=== PATIENT | female | born 1985 | race Hispanic/Latino ===

== ENCOUNTER 2020-01-08 20:06 | Emergency (ER) | payer BC, OTHER ==
--- OUTSIDE RECORDS SUMMARY | 2020-01-08 20:09 | XMS REPORT | Continuity of Care Document ---
:1985 Author Organization [facility] t Address [address] [place] [address] Care Team Providers Name Role Phone Constantine Reeves MD Attending Clinician Nurse, Women's Health Attending Clinician Unavailable Herbert HALL Attending Clinician Pcp, Does Not Have A Attending Clinician Herbert HALL Admitting Clinician Problems This patient has no known problems. Allergies, Adverse Reactions, Alerts This patient has no known allergies or adverse reactions. Medications This patient has no known medications. Procedures This patient has no known procedures. Encounters Start End Encounter Admission Attending Care Care Encounter Source Date/Time Date/Time Type Type Clinicians Facility Department ID 2019-12-27 2019-12-27 Refill MELITA Reeves [id number] 00:00:00 00:00:00 Tawanna Bazan [id number] [place] [id number] Professio [id number] [address] 2019-12-26 2019-12-26 Nurse Nurse, [facility] [id number] 15:26:04 16:16:40 Visit Mathew Bazan [id number] Formerly [facility] [id number] Professio [id number] [address] 2019-12-18 2019-12-20 [facility] MARCOS Godinez [id number] 05:24:00 15:25:00 Encounter Rosalba CUNN[place]HAM [id number] [facility] [id number] 2019-12-16 2019-12-16 Telephone Pcp, [place] [id number] 00:00:00 00:00:00 Patient Beni [id number] Does Not [place] [id number] Have A [place] [id number] [id number] Results This patient has no known results.
--- OUTSIDE RECORDS SUMMARY | 2020-01-08 20:09 | XMS REPORT | Summary of Care ---
:1985 Author Organization [facility] Address [address] [place] [address] Care Team Providers Name Role Phone Pcp, Patient Does Not Have A Primary Care Provider +1-000-00 0-0000 Reason for Visit Reason Comments LAB Encounter Details Date Type Department Care Team Description 10/16/2019 Hydro Station Operator Visit [facility] Sabi Man MD [address] [facility] [address] [place] [address] Glucose tolerance test abnormal; Professional Office 2, Adc Lab 29 weeks gestation of Building Phlebotomy Lab Professional Office Building [address] [facility] , [address] [place] [address] Allergies No Known Allergiesdocumented as of this encounter (statuses as of 10/16/2019) Medications Medication Sig Dispensed Refills Start Date End Date Status vit Take by mouth. 0 A ctive calc,iron,folic ( VITAMIN ORAL) ferrous sulfate 325 mg Take 1 tablet by 30 tablet 3 09/05/2019 Active (65 mg iron) EC mouth 2 (two) tabletIndications: 24 times daily with weeks gestation of meals. , Anemia of mother in , antepartum documented as of this encounter (statuses as of 10/16/2019) Active Problems Problem Noted Date Previous section 10/01/2019 27 weeks gestation of 10/01/2019 Obesity (BMI 30-39.9) 09/05/2019 Anemia of mother in , antepartum 08/22/2019 Polyp of gallbladder 06/06/2016 Seropositive for herpes simplex 2 infection 05/31/2016 Low serum HDL 05/31/2016 Anemia, unspecified 05/31/2016 Chronic abdominal pain 05/22/2016 Blood in stool 05/22/2016 Estimated Date of Delivery Comments Yes 12/25/2019 Based on last menstr ual period of 03/20/2019 documented as of this encounter (statuses as of 10/16/2019) Resolved Problems Problem Noted Date Resolved Date 24 weeks gestation of 08/22/2019 10/01/19 20 documented as of this encounter (statuses as of 10/16/2019) Immunizations Name Administration Dates Next Due Influenza Virus Vaccine Quad IM Multi-dose 6+ MO 05/22/2016 TDAP (ADACEL) VACCINE 10/01/2019 documented as of this encounter Social History Tobacco Use Types Packs/Day Years Used Date Never Smoker Smokeless Tobacco: Never Used Alcohol Use Drinks/Week oz/Week Comments No 0 Standard drinks or equivalent 0.0 Estimated Date of Delivery Comments Yes 12/25/2019 Based on last menstr ual period of 03/20/2019 Sex Assigned at Date Recorded Not on file Job Start Date Occupation Industry Not on file Not on file Not on file Travel History Travel Start Travel End No recent travel history available. COVID-19 Exposure Response Date Recorded In the last month, have you been in contact with No / Unsure 10/16/2019 8:04 AM CDT someone who was confirmed or suspected to have Coronavirus / COVID-19? documented as of this encounter Last Filed Vital Signs Not on filedocumented in this encounter Plan of Treatment Date Type Specialty Care Team Description 10/17/2019 Telemedicine Visit Obstetrics & Gynecology Adum, Tawanna Fitch MD [address] [place] [address] [place] [address] Name Type Priority Associated Diagnoses Date/Ti me 3 HR GLUCOSE TOLERANCE LAB Routine Glucose tolerance test 10/16/2019 8:08 AM CDT PANEL abnormal 29 weeks gestation of 3 HR GLUCOSE TOLERANCE LAB Routine Glucose tolerance test 10/16/2019 11:10 AM CDT TEST abnormal 29 weeks gestation of Health Maintenance Due Date Last Done Comments VARICELLA VACCINES (1 of 2 - 01/02/1988 2-dose childhood series) INFLUENZA VACCINE (#1) 2019 05/22/2016 PAP SMEAR 08/22/2022 08/22/2019, 05/22/2016 DTaP,Tdap,and Td Vaccines (2 09/30/2029 10/01/2019 - Td) PNEUMOCOCCAL 0-64 YEARS Aged Out No longe r eligible based COMBINED SERIES on patient's age to complete this to [facility] documented as of this encounter Procedures Procedure Name Priority Date/Time Associated Diagnosis Comme nts 2 HR GLUCOSE Routine 10/16/2019 10:11 AM Glucose tolerance Res ults for this TOLERANCE TEST CDT test abnormal procedure are in 29 weeks gestation the resul ts of section. 1 HR GLUCOSE Routine 10/16/2019 9:10 AM Glucose tolerance Res ults for this TOLERANCE TEST CDT test abnormal procedure are in 29 weeks gestation the resul ts of section. GLUCOSE FASTING Routine 10/16/2019 8:08 AM Glucose tolerance Results for this CDT test abnormal procedure are in 29 weeks gestation the resul ts of section. documented in this encounter Results 2 HR GLUCOSE TOLERANCE TEST (10/16/2019 10:11 AM CDT) Pathologist Sig nature GLUC 2 HR 190 (H) 70 - 120 mg/dL [facility] Specimen Blood Performing Organization Address [facility] Phone Number [facility] CLIA: [id number], [address] [place], [place] [address] 1 HR GLUCOSE TOLERANCE TEST (10/16/2019 9:10 AM CDT) Pathologist Sig nature GLUC 1 HR 213 (H) 120 - 170 mg/dL [facility] Specimen Blood Performing Organization Address [facility] Phone Number [facility] CLIA: [id number], [address] [place], [place] [address] GLUCOSE FASTING (10/16/2019 8:08 AM CDT) Pathologist Sig nature GLU FASTNG 91 70 - 110 mg/dL [facility] Specimen Blood Performing Organization Address [facility] Phone Number [facility] CLIA: [id number], [address] [place], [place] [address] documented in this encounter Visit Diagnoses Diagnosis Glucose tolerance test abnormal Impaired glucose tolerance test 29 weeks gestation of state, incidental documented in this encounter Insurance Payer Benefit Plan / Subscriber ID Effective Dates Phone Addre ss Type Group BCBS OF [facility] [id number] 2018-Presen [phone] P O CARYN X PPO/POS [place] - OUT OF STATE t 87 [id number] [place] [address] [facility] MEDICAID OF xxxxxxxxx 2019-Prese [phone] P [place] [id number] [place] [address] documented as of this encounter
--- OUTSIDE RECORDS SUMMARY | 2020-01-08 20:09 | XMS REPORT | Summary of Care ---
:1985 Author Organization [facility] Address [address] [place] [address] Care Team Providers Name Role Phone Pcp, Patient Does Not Have A Primary Care Provider +1-000-00 0-0000 Reason for Visit Reason Comments LAB WORK Encounter Details Date Type Department Care Team Description 10/15/2019 [facility]phone [facility] Adum, Tawanna Fitch MD LAB WORK Healthcare- [address] [place] [address], [address] [place] [address] [place] [address] [phone] Allergies No Known Allergiesdocumented as of this encounter (statuses as of 10/15/2019) Medications Medication Sig Dispensed Refills Start Date [...] as of this encounter (statuses as of 10/15/2019) Active Problems Problem Noted Date Previous section [...] as of this encounter (statuses as of 10/15/2019) Resolved Problems Problem Noted Date Resolved Date 24 weeks gestation of 08/22/2019 10/01/19 20 documented as of this encounter (statuses as of 10/15/2019) Immunizations Name Administration Dates Next Due Influenza [...] Travel End No recent travel history available. documented as of this encounter Last Filed Vital Signs Not on filedocumented in this encounter Plan of Treatment Date Type Specialty Care Team Description 10/17/2019 Telemedicine Visit Obstetrics & Gynecology Adum, Tawanna Fitch MD [address] [place] [address] Dr. Patel [address] [place] [address] Name Type Priority Associated Diagnoses Order S chedule 3 HR GLUCOSE TOLERANCE LAB Routine Glucose tolerance test Expected: 10/15/2019, PANEL abnormal Expires: 01/14/2020 29 weeks gestation of Health Maintenance Due Date Last Done Comments VARICELLA VACCINES (1 of 2 - 01/02/1988 2-dose childhood series) INFLUENZA VACCINE (#1) 2019 05/22/2016 PAP SMEAR 08/22/2022 08/22/2019, 05/22/2016 DTaP,Tdap,and Td Vaccines (2 09/30/2029 10/01/2019 - Td) PNEUMOCOCCAL 0-64 YEARS Aged Out No longe r eligible based COMBINED SERIES on patient's age to complete this to [facility] documented as of this encounter Results Not on filedocumented in this encounter Visit Diagnoses Diagnosis Glucose tolerance test abnormal - Primar y Impaired glucose tolerance test 29 weeks gestation of state, incidental documented in this encounter Insurance Payer Benefit Plan / Subscriber ID Effective Dates Phone Addre ss Type Group BCBS OF [place] OF [place] [id number] 2018-Pressanthosh [phone] P O CARYN X PPO/POS [place] - OUT OF STATE t 87 [id number] [place] [address] [facility] MEDICAID OF xxxxxxxxx 2019-Preszulema [phone] [address] edicaid [place] nt [id number] [place] [address] documented as of this encounter
--- OUTSIDE RECORDS SUMMARY | 2020-01-08 20:09 | XMS REPORT | Summary of Care ---
:[address] [facility] - Health Address [address] [place] [address] Care Team Providers Name Role Phone Pcp, Patient Does Not Have A Primary Care Provider +1-000-00 0-0000 Encounter Details Date Type Department Care Team Description 10/10/[address] [facility] Doctor Unassigned, No [address] [facility] [place] [address] [address] [place] [address] Allergies No Known Allergiesdocumented as of this [...] Description 10/17/2019 Telemedicine Visit Obstetrics & Gynecology AdTawanna soni MD [address] [place] [address] [place] [address] Health Maintenance Due Date Last Done Comments VARICELLA VACCINES (1 of 2 - 01/02/1988 2-dose childhood series) INFLUENZA VACCINE (#1) 2019 05/22/2016 PAP SMEAR 08/22/2022 08/22/2019, 05/22/2016 DTaP,Tdap,and Td Vaccines (2 09/30/2029 10/01/2019 - Td) PNEUMOCOCCAL 0-64 YEARS Aged Out No longe r eligible based COMBINED SERIES on patient's age to complete this to [facility] documented as of this encounter Procedures Procedure Name Priority Date/Time Associated Diagnosis Comme nts AGREEMENTS AUTHORIZATIONS Routine 10/10/2019 12:01 AM AND IRREVOCABLE CDT ASSIGNMENTS (FORM 2000) documented in this encounter Results Not on filedocumented in this encounter Insurance Payer Benefit Plan / Subscriber ID Effective Dates Phone Addre ss Type Group BCBS OF [place] OF [place] [id number] 2018-Presen [phone] P O CARYN X PPO/POS [place] - OUT OF STATE t 87 [id number] [place] [address] [facility] MEDICAID OF xxxxxxxxx 2019-Prese [phone] Johana Leon edicaid [place] nt [id number] [place] [address] documented as of this encounter
--- OUTSIDE RECORDS SUMMARY | 2020-01-08 20:10 | XMS REPORT | Summary of Care ---
:1985 Author Organization [facility] Address [address] [place] [address] Care Team Providers Name Role Phone Pcp, Patient Does Not Have A Primary Care Provider +1-000-00 0-0000 Reason for Visit Reason Comments ROUTINE VISIT Encounter Details Date Type Department Care Team Description 10/17/2019 Telemedicine Visit [facility] Women's Adum, Tawanna Fitch, 30 weeks gestation of (Primary Dx); Healthcare- MD Diet controlled gestational diabetes forrest litus (GDM) in third trimester; [address] Anemia of mother in pregnanc y, antepartum; [address], Athlete's foot, right [address] [place] [address] Allergies No Known Allergiesdocumented as of this encounter (statuses as of 10/17/2019) Medications Medication Sig Dispensed Refills Start Date End Date Status vit Take by mouth. 0 A ctive calc,iron,folic ( VITAMIN ORAL) ferrous sulfate 325 mg Take 1 tablet by 30 tablet 3 09/05/2019 Active (65 mg iron) EC mouth 2 (two) tabletIndications: 24 times daily with weeks gestation of meals. , Anemia of mother in , antepartum ketoconazole 2 % Apply to 15 g 0 10/17/2019 10/31/2019 A ctive creamIndications: area(s) daily Athlete's foot, right for 14 days. documented as of this encounter (statuses as of 10/17/2019) Active Problems Problem Noted Date Diet controlled gestational diabetes mellitus (GDM) in third trimester 10/17/2019 Previous section 10/01/2019 30 weeks gestation of 10/01/2019 Obesity (BMI 30-39.9) [...] as of this encounter (statuses as of 10/17/2019) Resolved Problems Problem Noted Date Resolved Date 24 weeks gestation of 08/22/2019 10/01/19 20 documented as of this encounter (statuses as of 10/17/2019) Immunizations Name Administration Dates Next Due Influenza [...] Signs Not on filedocumented in this encounter Progress Notes Tawanna Reeves MD - 10/17/2019 1:30 PM CDT TELEHEALTH NOTE Verbal consent obtained from Patient: Marina Maxwell for telehealth services provided below due to COVID-19 crises. Communication with patient was conducted via Telephone due to patient unable to obtain video call option. Location of Patient: Home Location of Provider: Office Date of Service: 10/17/2019 Chief Complaint: routine visit HPI: Marina Maxwell is a 34 year old female @ 30w1d here for routine visit. Denies contractions, vaginal bleeding, LOF, dysuria, or PIH symptoms. + active FM. Patient failed her 3hr GTT She repots that her athlete foot is not improving with OTC antifungal( insurance would not cover herketoconazole prescription) Past Medical History: Diagnosis Date Anemia History of ovarian cyst MEDICATIONS: Outpatient Medications Marked as Taking for the 10/17/19 encounter (Telemedicine Visit) with Tawanna Reeves MD Medication Sig Dispense Refill ketoconazole 2 % cream Apply to area(s) daily for 14 days. 15 g 0 ROS Denies fever, chills, chest pain, coughing, SOB, constipation, diarrhea, nausea, vomiting. Pain score: 0 TELEHEALTH EXAM Alert and answering/asking questions appropriately ASSESSMENT/ PLAN Marina Maxwell is a 34 year old female with PMH as above presenting with: 30 weeks gestation of (primary encounter diagnosis) - PTL precautions and FKC reviewed. Plan: Follow up in 2 weeks Diet controlled gestational diabetes mellitus (GDM) in third trimester - Reviewed results and explained consistent with diabetes in . The need for adequate glycemic control to prevent macrosomia, polyhydramnios, hypoglycemia, trauma and other possible complications including GHTN, preeclampsia were discussed. A referral has been generated for diabetic teaching/ dietitian. Briefly discussed the recommended diet should be about 40% carbohydrates (more complex than simple carbohydrates), 40% fat, and 20% protein. You should eat 3 meals with 2-3 snacks per day. A moderate exercise is recommended. She understands that she might require medication- oral hypoglycemics or insulin to achieve adequate glycemic control if indicated as advances Plan: Refer for diabetic and animal daycare provider teaching OPHELIA Anemia of mother in , antepartum Comment: Continue Iron supplements as prescribed Plan: Athlete's foot, right Comment: Patient reports that she will cover cost for the medication Plan: ketoconazole 2 % cream . See OB Summary Discussed about COVID-19/flu precautions. Social distancing, frequent hand washings, and to follow CDC recommendations discussed. Indications for testing discussed. After visit summary (AVS ) documentation will be available through [employer] for this encounter. Tawanna Reeves MD 10/17/2019 2:04 PM documented in this encounter Plan of Treatment Date Type Specialty Care Team Description 10/20/2019 Nurse Visit Obstetrics & Gynecology Nurse, [facility] Women' s Health 10/31/2019 Telemedicine Visit Obstetrics & Gynecology Tawanna Reeves MD [address] [place] [address] [place] [address] Health Maintenance Due Date Last Done Comments VARICELLA VACCINES (1 of 2 - 01/02/1988 2-dose childhood series) INFLUENZA VACCINE (#1) 2019 05/22/2016 PAP SMEAR 08/22/2022 08/22/2019, 05/22/2016 DTaP,Tdap,and Td Vaccines (2 09/30/2029 10/01/2019 - Td) PNEUMOCOCCAL 0-64 YEARS Aged Out No longe r eligible based COMBINED SERIES on patient's age to complete this to [facility] documented as of this encounter Results Not on filedocumented in this encounter Visit Diagnoses Diagnosis 30 weeks gestation of - Primar y state, incidental Diet controlled gestational diabetes forrest litus (GDM) in third trimester Anemia of mother in , antepartu m Anemia, antepartum Athlete's foot, right Dermatophytosis of foot documented in this encounter Insurance Payer Benefit Plan / Subscriber ID Effective Dates Phone Addre ss Type Group BCBS [place] [id number] 2018-Presen [phone] P O CARYN X PPO/POS [place] - OUT OF STATE t 87 [id number] [place] [address] [facility] MEDICAID OF xxxxxxxxx 2019-Prese [phone] [address] edicaid [place] nt [id number] [place] [address] documented as of this encounter
--- OUTSIDE RECORDS SUMMARY | 2020-01-08 20:10 | XMS REPORT | Summary of Care ---
:1985 Author Organization [facility] - [facility] Address [address] [place] [address] Care Team Providers Name Role Phone Pcp, Patient Does Not Have A Primary Care Provider +1-000-00 0-0000 Reason for Visit Reason Comments Diabetic Education Encounter Details Date Type Department Care Team Description 10/20/2019 Nurse Visit [facility] Women's Adum, Tawanna Fitch MD [address] [place] [address] DrKim [address] [place] [address] Diet controlled Healthcare- [place] Nurse, [facility] Women's [facility] gestational diabetes [address] [facility], mellitus (GDM) in [address] third trimester [place], [place] (Primary Dx) [id number] Allergies No Known Allergiesdocumented as of this encounter (statuses as of 10/20/2019) Medications Medication Sig Dispensed Refills Start Date [...] daily Athlete's foot, right for 14 days. Blood-Glucose Meter Use as directed; 1 Kit 1 10/20/2019 Active (BLOOD GLUCOSE patient to check MONITORING) Kit blood sugar QID. DX: O24.410 blood sugar diagnostic Use as directed; 100 Strip 2 10/20/2019 Active strip Patient to check blood glucose QID. DX: O24.410 Lancets Misc Use as directed; 100 Each 2 10/20/2019 Active Patient to check blood sugar QID. DX: O24.410 documented as of this encounter (statuses as of 10/20/2019) Active Problems Problem Noted Date Diet controlled [...] as of this encounter (statuses as of 10/20/2019) Resolved Problems Problem Noted Date Resolved Date 24 weeks gestation of 08/22/2019 10/01/19 20 documented as of this encounter (statuses as of 10/20/2019) Immunizations Name Administration Dates Next Due Influenza [...] been in contact with No / Unsure 10/20/2019 2:58 PM CDT someone who was confirmed or suspected to have Coronavirus / COVID-19? documented as of this encounter Last Filed Vital Signs Not on filedocumented in this encounter Progress Notes Dara Mcneal RN - 10/20/2019 3:00 PM CDTDiabetic education done with patient with help of account manager. Diabetic supplies to be sent to pharmacy. Patient verbalized understanding and agrees to plan of care. Dara Mcneal RN 10/20/2019 4:08 PM documented in this encounter Plan of Treatment Date Type Specialty Care Team Description 10/31/2019 Telemedicine Visit Obstetrics & Gynecology Adum, Tawanna Fitch MD [address] [place] [address] [place] [phone] Health Maintenance Due Date Last Done Comments VARICELLA VACCINES (1 of 2 - 01/02/1988 2-dose childhood series) INFLUENZA VACCINE (#1) 2019 05/22/2016 PAP SMEAR 08/22/2022 08/22/2019, 05/22/2016 DTaP,Tdap,and Td Vaccines (2 09/30/2029 10/01/2019 - Td) PNEUMOCOCCAL 0-64 YEARS Aged Out No longe r eligible based COMBINED SERIES on patient's age to complete this to psychiatric documented as of this encounter Results Not on filedocumented in this encounter Visit Diagnoses Diagnosis Diet controlled gestational diabetes forrest litus (GDM) in third trimester - Primary documented in this encounter Insurance Payer Benefit Plan / Subscriber ID Effective Dates Phone Addre ss Type Group BCBS OF [place] [id number] 2018-Presen [phone] P O CARYN X PPO/POS [place] - OUT OF STATE t 87 [phone] [place] [address] [facility] [place] MEDICAID OF xxxxxxxxx 2019-Prese [phone] [address] edicaid [place] nt 00 2004 [place] [address] documented as of this encounter
--- OUTSIDE RECORDS SUMMARY | 2020-01-08 20:10 | XMS REPORT | Summary of Care ---
:1985 Author Organization [facility] Address [address] [place] [address]94 Care Team Providers Name Role Phone Pcp, Patient Does Not Have A Primary Care Provider +[phone] 0-0000 Reason for Visit Reason Comments Rx Concern/Question Encounter Details Date Type Department Care Team Description 11/04/2019 Telephone [facility] Women's Adum, Tawanna Fitch MD Rx Concern/Question Healthcare- [address] [place] [address], [facility] [address] [place] [address] [phone] Allergies No Known Allergiesdocumented as of this encounter (statuses as of 11/05/2019) Medications Medication Sig Dispensed Refills Start Date End Date Status vit Take by mouth. 0 A ctive calc,iron,folic ( VITAMIN ORAL) ferrous sulfate 325 mg Take 1 tablet by 30 tablet 3 09/05/2019 Active (65 mg iron) EC mouth 2 (two) tabletIndications: 24 times daily with weeks gestation of meals. , Anemia of mother in , antepartum Blood-Glucose Meter Use as directed; 1 Kit 1 10/20/2019 Active (BLOOD GLUCOSE patient to check MONITORING) Kit blood sugar QID. DX: O24.410 blood sugar diagnostic Use as directed; 100 Strip 2 10/20/2019 Active strip Patient to check blood glucose QID. DX: O24.410 Lancets Misc Use as directed; 100 Each 2 10/20/2019 Active Patient to check blood sugar QID. DX: O24.410 glyBURIDE 1.25 mg To be taken at 30 tablet 1 10/31/2019 Active tabletIndications: 10pm every night Gestational diabetes mellitus (GDM) in third trimester controlled on oral hypoglycemic drug documented as of this encounter (statuses as of 11/05/2019) Active Problems Problem Noted Date 32 weeks gestation of 10/31/2019 Gestational diabetes mellitus (GDM) in third trimester controlled on oral 10/17/2019 hypoglycemic drug Previous section 10/01/2019 30 weeks gestation of [...] as of this encounter (statuses as of 11/05/2019) Resolved Problems Problem Noted Date Resolved Date 24 weeks gestation of 08/22/2019 10/01/19 20 documented as of this encounter (statuses as of 11/05/2019) Immunizations Name Administration Dates Next Due Influenza [...] been in contact with No / Unsure 10/31/2019 1:52 PM CDT someone who was confirmed or suspected to have Coronavirus / COVID-19? documented as of this encounter Last Filed Vital Signs Not on filedocumented in this encounter Plan of Treatment Date Type Specialty Care Team Description 11/14/2019 Routine Obstetrics & Adum, Tawanna Fitch MD Visit Gynecology [address] [place] [address] [place] [address] Health Maintenance Due Date Last Done Comments VARICELLA VACCINES (1 of 2 - 01/02/1988 2-dose childhood series) INFLUENZA VACCINE (Season 02/24/2020 05/22/2016 Ended) PAP SMEAR 08/22/2022 08/22/2019, 05/22/2016 DTaP,Tdap,and Td Vaccines (2 09/30/2029 10/01/2019 - Td) PNEUMOCOCCAL 0-64 YEARS Aged Out No longe r eligible based COMBINED SERIES on patient's age to complete this to [facility] documented as of this encounter Results Not on filedocumented in this encounter Insurance Payer Benefit Plan / Subscriber ID Effective Dates Phone Addre ss Type Group BCBS OF [place] [id number] 2018-Pressanthosh [phone] P O CARYN X PPO/POS [place] - OUT OF STATE t 87 [id number] [place] [address] [facility] MEDICAID OF xxxxxxxxx 2019-Prese [phone] [address] [place]icaid [place] nt 00 [id number] [place] [address] documented as of this encounter
--- OUTSIDE RECORDS SUMMARY | 2020-01-08 20:10 | XMS REPORT | Summary of Care ---
:1985 Author Organization [facility] Address [address] [place] [address]698 Care Team Providers Name Role Phone Pcp, Patient Does Not Have A Primary Care Provider +1-000-00 0-0000 Reason for Visit Reason Comments Refill Request Encounter Details Date Type Department Care Team Description 10/20/2019 Refill [facility] Women's Adum, Tawanna Fitch MD Refill Request Healthcare- [address] [place] [address], Suite [facility] 20 8 208 [place] [address] [place] [address] [phone] Allergies No Known Allergiesdocumented as of this [...] Obstetrics & Gynecology Adum, Tawanna Fitch MD [address] [place] [address] [place] [address] Health Maintenance Due Date Last Done Comments VARICELLA VACCINES (1 of 2 - 01/02/1988 2-dose childhood series) INFLUENZA VACCINE (#1) 2019 05/22/2016 PAP SMEAR 08/22/2022 08/22/2019, 05/22/2016 DTaP,Tdap,and Td Vaccines (2 09/30/2029 10/01/2019 - Td) PNEUMOCOCCAL 0-64 YEARS Aged Out No longe r eligible based COMBINED SERIES on patient's age to complete this to [facility] documented as of this encounter Results Not on filedocumented in this encounter Visit Diagnoses Diagnosis Athlete's foot, right Dermatophytosis of foot documented in this encounter Insurance Payer Benefit Plan / Subscriber ID Effective Dates Phone Addre ss Type Group BCBS OF [place] [id number] 2018-Presen [phone] P [address] CARYN X PPO/POS [place] - OUT OF STATE t 87 [id number] [place] [address] [facility] MEDICAID OF xxxxxxxxx 2019-Prese [phone] [address] edicaid [place] nt [address] [place] [address] documented as of this encounter
--- OUTSIDE RECORDS SUMMARY | 2020-01-08 20:10 | XMS REPORT | Summary of Care ---
:1985 Author Organization [facility] Address [address] [place] [address] Care Team Providers Name Role Phone Pcp, Patient Does Not Have A Primary Care Provider +1-000-00 0-0000 Reason for Visit Reason Comments Refill Request Encounter Details Date Type Department Care Team Description 10/27/2019 Refill [facility] Women's Adum, Tawanna Fitch MD Refill Request Healthcare- [address] [place] [address], Suite [facility] 20 8 208 [place] [address] [place] [address] [phone] Allergies No Known Allergiesdocumented as of this encounter (statuses as of 10/27/2019) Medications Medication Sig Dispensed Refills Start Date [...] as of this encounter (statuses as of 10/27/2019) Active Problems Problem Noted Date Diet controlled [...] as of this encounter (statuses as of 10/27/2019) Resolved Problems Problem Noted Date Resolved Date 24 weeks gestation of 08/22/2019 10/01/19 20 documented as of this encounter (statuses as of 10/27/2019) Immunizations Name Administration Dates Next Due Influenza [...] Description 10/31/2019 Telemedicine Visit Obstetrics & Gynecology AdTawanna soni MD [address] [place] [address] [place] [address] Health Maintenance Due Date Last Done Comments VARICELLA VACCINES (1 of 2 - 01/02/1988 2-dose childhood series) INFLUENZA VACCINE (Season 02/24/2020 05/22/2016 Ended) PAP SMEAR 08/22/2022 08/22/2019, 05/22/2016 DTaP,Tdap,and Td Vaccines (2 09/30/2029 10/01/2019 - Td) PNEUMOCOCCAL 0-64 YEARS Aged Out No longe r eligible based COMBINED SERIES on patient's age to complete this to [facility] documented as of this encounter Results Not on filedocumented in this encounter Visit Diagnoses Diagnosis 24 weeks gestation of state, incidental Anemia of mother in , antepartu m Anemia, antepartum documented in this encounter Insurance Payer Benefit Plan / Subscriber ID Effective Dates Phone Addre ss Type Group BCBS OF [facility] [id number] 2018-Pressanthosh [phone] P O CARYN X PPO/POS [place] - OUT OF STATE t 87 [id number] [place] [address] [facility] MEDICAID OF xxxxxxxxx 2019-Preszulema [phone] [address] edicaid [place] nt 00 2004 [place] [address] documented as of this encounter
--- OUTSIDE RECORDS SUMMARY | 2020-01-08 20:10 | XMS REPORT | Summary of Care ---
:1985 Author Organization [facility] Address [address] [place] [address] Care Team Providers Name Role Phone Pcp, Patient Does Not Have A Primary Care Provider +1-000-00 0-0000 Reason for Visit Reason Comments ROUTINE VISIT Encounter Details Date Type Department Care Team Description 10/31/2019 Routine [facility] Women's Adum, Javier Longoria estational diabetes mellitus (GDM) in third trimester controlled on oral hypoglycemic drug (Primary Dx); Visit Healthcare- MD 32 weeks gestation of ; [address] Frequent headaches [address] [facility], Kim [facility] 208 [facility] 208 [place] [address] Allergies No Known Allergiesdocumented as of this encounter (statuses as of 10/31/2019) Medications Medication Sig Dispensed Refills Start Date [...] as of this encounter (statuses as of 10/31/2019) Active Problems Problem Noted Date 32 weeks [...] as of this encounter (statuses as of 10/31/2019) Resolved Problems Problem Noted Date Resolved Date 24 weeks gestation of 08/22/2019 10/01/19 20 documented as of this encounter (statuses as of 10/31/2019) Immunizations Name Administration Dates Next Due Influenza [...] of this encounter Last Filed Vital Signs Vital Sign Reading Time Taken Comments Blood Pressure 108/66 10/31/2019 2:06 PM CDT Pulse 88 10/31/2019 2:06 PM CDT Temperature 37.1 C (98.7 F) 10/31/2019 2:06 PM CDT Respiratory Rate 18 10/31/2019 2:06 PM CDT Oxygen Saturation - - Inhaled Oxygen Concentration - - Weight 81.2 kg (179 lb) 10/31/2019 2:06 PM CDT Height 160 cm (5' 3") 10/31/2019 2:06 PM CDT Body Mass Index 31.71 10/31/2019 2:06 PM CDT documented in this encounter Progress Notes Tawanna Reeves MD - 10/31/2019 1:45 PM CDT Chief complaint: Chief Complaint Patient presents with ROUTINE VISIT HPI See OB summary note Histories OB History Para Term AB Living 3 1 1 1 1 SAB TAB Ectopic Multiple Live Births 1 # Outcome Date GA Lbr Gucci/2nd Weight Sex Delivery Anes PTL Lv 3 Current 2 AB 12/27/16 1 Term 07/17/14 M CS-Unspec JAMMIE Past Medical History: Diagnosis Date Anemia History of ovarian cyst Family History Problem Relation Age of Onset Hypertension Mother Cancer Paternal Grandmother Cancer Paternal Grandfather Family Status Relation Name Status Mo Alive Fa murder PGMo PGFa Past Surgical History: Procedure Laterality Date SECTION x 1 Social History Socioeconomic History Marital status: Spouse name: Not on file Number of children: Not on file Years of education: Not on file Highest education level: Not on file Occupational History Not on file Social Needs Financial resource strain: Not on file Food insecurity: Worry: Not on file Inability: Not on file Transportation needs: Medical: Not on file Non-medical: Not on file Tobacco Use Smoking status: Never Smoker Smokeless tobacco: Never Used Substance and Sexual Activity Alcohol use: No Alcohol/week: 0.0 standard drinks Drug use: No Sexual activity: Yes Partners: Male Lifestyle Physical activity: Days per week: Not on file Minutes per session: Not on file Stress: Not on file Relationships Social connections: Talks on phone: Not on file Gets together: Not on file Attends judaism service: Not on file Active member of club or organization: Not on file Attends meetings of clubs or organizations: Not on file Relationship status: Not on file Intimate partner violence: Fear of current or ex partner: Not on file Emotionally abused: Not on file Physically abused: Not on file Forced sexual activity: Not on file Other Topics Concern Not on file Social History Narrative Patient feels safe at home denies abuse. Adventist preference: none Social History Substance and Sexual Activity Sexual Activity Yes Partners: Male Labs Rug Cleaner Helper Visit on 10/16/2019 Component Date Value GLU FASTNG 10/16/2019 91 GLUC 1 HR 10/16/2019 213* GLUC 2 HR 10/16/2019 190* GLUC 3 HR 10/16/2019 113* Rug Cleaner Helper Visit on 10/10/2019 Component Date Value ABO & RH 10/10/2019 O Positive IAT 10/10/2019 Negative RPR (Qualitative) 10/10/2019 Nonreactive HIV 1/2 Ag-Ab with Reflex 10/10/2019 Negative HIV Semi-quantitative 10/10/2019 0.06 WBC 10/10/2019 8.20 RBC 10/10/2019 3.35* HGB 10/10/2019 10.6* HCT 10/10/2019 33.4* MCV 10/10/2019 99.7* MCH 10/10/2019 31.6 MCHC 10/10/2019 31.7 RDW-SD 10/10/2019 47.6 RDW-CV 10/10/2019 13.1 PLT 10/10/2019 179 MPV 10/10/2019 12.9 NRBC/100 WBC 10/10/2019 0.0 NRBC x10^3 10/10/2019 <0.01 GRAN MAT (NEUT) % 10/10/2019 76.5 IMM GRAN % 10/10/2019 0.60 LYMPH % 10/10/2019 13.2 MONO % 10/10/2019 7.8 EOS % 10/10/2019 1.8 BASO % 10/10/2019 0.1 GRAN MAT x10^3(ANC) 10/10/2019 6.27 IMM GRAN x10^3 10/10/2019 0.05 LYMPH x10^3 10/10/2019 1.08* MONO x10^3 10/10/2019 0.64 EOS x10^3 10/10/2019 0.15 BASO x10^3 10/10/2019 <0.03 Radiology No new radiology. Allergies Marina has No Known Allergies. Medications Marina has a current medication list which includes the following prescription(s): ketoconazole, bloodsugar diagnostic, blood-glucose meter, lancets, ferrous sulfate, and vit calc,iron,folic. Review of Systems BP 108/66 (BP Location: Left arm, Patient Position: Sitting, BP CUFF SIZE: Adult Medium) | Pulse 88 | Temp 37.1 C (98.7 F) (Oral) | Resp 18 | Ht 5' 3" (1.6 m) | Wt 179 lb (81.2 kg) | LMP 03/20/2019 | BMI 31.71 kg/m Pregravid BMI: Could not be calculated Physical Exam Assessment/Plan Gestational diabetes mellitus (GDM) in third trimester controlled on oral hypoglycemic drug (primary encounter diagnosis) Comment: Plan: POCT URINALYSIS W/O SPECIFIC GRAVITY, glyBURIDE 1.25 mg tablet 32 weeks gestation of Comment: Plan: POCT URINALYSIS W/O SPECIFIC GRAVITY Frequent headaches This visit did not involve counseling and coordination that comprised more than 50% of the visit time. Tawanna Reeves MD 10/31/2019 4:23 PM documented in this encounter Plan of Treatment Date Type Specialty Care Team Description 11/14/2019 Routine Obstetrics & Tawanna Reeves MD Visit Gynecology [address] [place] [address] [place] [address] Health Maintenance Due Date Last Done Comments VARICELLA VACCINES (1 of 2 - 01/02/1988 2-dose childhood series) INFLUENZA VACCINE (Season 02/24/2020 05/22/2016 Ended) PAP SMEAR 08/22/2022 08/22/2019, 05/22/2016 DTaP,Tdap,and Td Vaccines (2 09/30/2029 10/01/2019 - Td) PNEUMOCOCCAL 0-64 YEARS Aged Out No longe r eligible based COMBINED SERIES on patient's age to complete this to [facility] documented as of this encounter Procedures Procedure Name Priority Date/Time Associated Diagnosis Comme nts POCT URINALYSIS W/O Routine 10/31/2019 Gestational diabetes Results for this SPECIFIC GRAVITY mellitus (GDM) in third procedure are in the trimester controlled on resu lts section. oral hypoglycemi c drug 32 weeks gestation of documented in this encounter Results POCT URINALYSIS W/O SPECIFIC GRAVITY (10/31/2019) Pathologist Sig nature POCT PH U n/a 5 - 8 mg/dl POCT U LEUK EST n/a Negative - Negative POCT U NIT n/a Negative - Negative POCT U PROT neg Negative - Negative POCT U GLU neg Negative - Negative POCT U KETONE n/a Negative - Negative POCT U BLD n/a Negative - Negative Specimen Urine - URINE, CLEAN CATCH documented in this encounter Visit Diagnoses Diagnosis Gestational diabetes mellitus (GDM) in t hird trimester controlled on oral hypoglycemic drug - Primary 32 weeks gestation of state, incidental Frequent headaches documented in this encounter Insurance Payer Benefit Plan / Subscriber ID Effective Dates Phone Addre ss Type Group BCBS OF [facility] [id number] 2018-Presen [phone] P O CARYN X PPO/POS [place] - OUT OF STATE t 87 [id number] [place] [address] [facility] MEDICAID OF xxxxxxxxx 2019-Prese [phone] [address] edicaid [place] nt 00 2004 [place] [address] documented as of this encounter
--- OUTSIDE RECORDS SUMMARY | 2020-01-08 20:10 | XMS REPORT | Summary of Care ---
:1985 Author Organization [facility] Address [address] [place] [address] Care Team Providers Name Role Phone Pcp, Patient Does Not Have A Primary Care Provider +1-000-00 0-0000 Reason for Visit Reason Comments Rx Concern/Question Encounter Details Date Type Department Care Team Description 10/21/2019 Telephone [facility] Women's Adum, Tawanna Fitch MD Rx Concern/Question Healthcare- [address] [place] [address], [facility] [address] [place] [phone] Allergies No Known Allergiesdocumented as of this encounter (statuses as of 10/21/2019) Medications Medication Sig Dispensed Refills Start Date [...] as of this encounter (statuses as of 10/21/2019) Active Problems Problem Noted Date Diet controlled [...] as of this encounter (statuses as of 10/21/2019) Resolved Problems Problem Noted Date Resolved Date 24 weeks gestation of 08/22/2019 10/01/19 20 documented as of this encounter (statuses as of 10/21/2019) Immunizations Name Administration Dates Next Due Influenza [...] Visit Obstetrics & Gynecology AdTawanna soni MD [address] [place] [address] [place] [address] Health Maintenance Due Date Last Done Comments VARICELLA VACCINES (1 of 2 - 01/02/1988 2-dose childhood series) INFLUENZA VACCINE (#1) 2019 05/22/2016 PAP SMEAR 08/22/2022 08/22/2019, 05/22/2016 DTaP,Tdap,and Td Vaccines (2 09/30/2029 10/01/2019 - Td) PNEUMOCOCCAL 0-64 YEARS Aged Out No longe r eligible based COMBINED SERIES on patient's age to complete this to pic documented as of this encounter Results Not on filedocumented in this encounter Insurance Payer Benefit Plan / Subscriber ID Effective Dates Phone Addre ss Type Group BCBS OF [place] [id number] 2018-Presen [phone] P O CARNY X PPO/POS [place] - OUT OF STATE t 87 [id number] [place] [address] [facility] MEDICAID OF xxxxxxxxx 2019-Prese [phone] [address] edicaid [place] nt 00 [id number] [place] [address] documented as of this encounter
--- OUTSIDE RECORDS SUMMARY | 2020-01-08 20:11 | XMS REPORT | Summary of Care ---
:1985 Author Organization [facility] Address [address] [place] [address] Care Team Providers Name Role Phone Pcp, Patient Does Not Have A Primary Care Provider +1-000-00 0-0000 Reason for Visit Reason Comments Refill Request Encounter Details Date Type Department Care Team Description 11/14/2019 Refill [facility] Women's Adum, Tawanna Fitch MD Refill Request Healthcare- [address] [place] [address], [address] [place] [address] [place] [address] [phone] Allergies No Known Allergiesdocumented as of this encounter (statuses as of 11/14/2019) Medications Medication Sig Dispensed Refills Start Date End Date Status vit Take by mouth. 0 A ctive calc,iron,folic ( VITAMIN ORAL) Blood-Glucose Meter Use as directed; 1 Kit [...] third trimester controlled on oral hypoglycemic drug ferrous sulfate 325 mg Take 1 tablet by 60 tablet 3 11/07/2019 Active (65 mg iron) EC mouth 2 (two) tabletIndications: 24 times daily with weeks gestation of meals. , Anemia of mother in , antepartum documented as of this encounter (statuses as of 11/14/2019) Active Problems Problem Noted Date 32 weeks [...] as of this encounter (statuses as of 11/14/2019) Resolved Problems Problem Noted Date Resolved Date 24 weeks gestation of 08/22/2019 10/01/19 20 documented as of this encounter (statuses as of 11/14/2019) Immunizations Name Administration Dates Next Due Influenza [...] & Adum, Tawanna Fitch MD Visit Gynecology [address] [place] [address] [place] [address] Health Maintenance Due Date Last Done Comments VARICELLA VACCINES (1 of - 01/02/1988 2-dose childhood series) INFLUENZA VACCINE [...] ss Type Group BCBS OF BCBS OF [place] [id number] 2018-Jacob [phone] P O CARYN X PPO/POS [place] - OUT OF STATE t 87 [id number] [place] [address] [facility] MEDICAID OF xxxxxxxxx 2019-Preszulema [phone] [address] edicaid [place] nt 00 2004 [place] [address] documented as of this encounter
--- OUTSIDE RECORDS SUMMARY | 2020-01-08 20:11 | XMS REPORT | Summary of Care ---
:1985 Author Organization [facility] Address [address] [place] [address] Care Team Providers Name Role Phone Pcp, Patient Does Not Have A Primary Care Provider +1-000-00 0-0000 Reason for Visit Reason Comments Refill Request Encounter Details Date Type Department Care Team Description 11/04/2019 Refill [facility] Women's Adum, Tawanna Fitch MD Refill Request Healthcare- [address] [place] [address], [address] [place] [address] [place] [address] [phone] Allergies No Known Allergiesdocumented as of this encounter (statuses as of 11/07/2019) Medications Medication Sig Dispensed Refills Start Date End Date Status vit Take by 0 Active calc,iron,folic mouth. ( VITAMIN ORAL) Blood-Glucose Use as 1 Kit 1 10/20/2019 Activ e Meter (BLOOD directed; GLUCOSE patient to MONITORING) Kit check blood sugar QID. DX: O24.410 blood sugar Use as 100 Strip 2 10/20/2019 Active diagnostic strip directed; Patient to check blood glucose QID. DX: O24.410 Lancets Misc Use as 100 Each 2 10/20/2019 Active directed; Patient to check blood sugar QID. DX: O24.410 glyBURIDE 1.25 mg To be taken 30 tablet 1 10/31/2019 Active tabletIndications: at 10pm every Gestational night diabetes mellitus (GDM) in third trimester controlled on oral hypoglycemic drug ferrous sulfate Take 1 tablet 60 tablet 3 11/07/2019 Active 325 mg (65 mg by mouth 2 iron) EC (two) times tabletIndications: daily with 24 weeks gestation meals. of , Anemia of mother in , antepartum ferrous sulfate Take 1 tablet 30 tablet 3 09/05/2019 Discontinued 325 mg (65 mg by mouth 2 0 (Reor muriel) iron) EC (two) times tabletIndications: daily with 24 weeks gestation meals. of , Anemia of mother in , antepartum documented as of this encounter (statuses as of 11/07/2019) Active Problems Problem Noted Date 32 weeks [...] as of this encounter (statuses as of 11/07/2019) Resolved Problems Problem Noted Date Resolved Date 24 weeks gestation of 08/22/2019 10/01/19 20 documented as of this encounter (statuses as of 11/07/2019) Immunizations Name Administration Dates Next Due Influenza [...] & Adum, Tawanna Fitch MD Visit Gynecology [address] [place] [address] [place] [phone] Health Maintenance Due Date Last Done Comments VARICELLA VACCINES (1 of - 01/02/1988 2-dose childhood series) INFLUENZA VACCINE (Season 02/24/2020 05/22/2016 Ended) PAP SMEAR 08/22/2022 08/22/2019, 05/22/2016 DTaP,Tdap,and Td Vaccines (2 09/30/2029 10/01/2019 - Td) PNEUMOCOCCAL 0-64 YEARS Aged Out No longe r eligible based COMBINED SERIES on patient's age to complete this to [facility] documented as of this encounter Results Not on filedocumented in this encounter Visit Diagnoses Diagnosis 24 weeks gestation of state, incidental Anemia of mother in , antepartu m Anemia, antepartum documented in this encounter Insurance Payer Benefit Plan / Subscriber ID Effective Dates Phone Addre ss Type Group BCBS OF [employer]BS OF [place] [id number] 2018-Jacob [phone] P O CARYN X PPO/POS [place] - OUT OF STATE t 87 [id number] [place] [address] [facility] MEDICAID OF xxxxxxxxx 2019-Preszulema [phone] [address] edicaid [place] nt 00 2004 [place] [address] documented as of this encounter
--- OUTSIDE RECORDS SUMMARY | 2020-01-08 20:11 | XMS REPORT | Summary of Care ---
:1985 Author Organization [facility] Address [address] [place] [address] Care Team Providers Name Role Phone Pcp, Patient Does Not Have A Primary Care Provider [phone] Reason for Referral (Routine) Status Reason Specialty Diagnoses / Referred By Referred To Procedures Contact Contact New Request Maternal Diagnoses 34 weeks gestation of Gestational diabetes mellitus (GDM) in third trimester controlled on oral hypoglycemic drug High-risk in third trimester Previous section AdumTawanna, Medicine Procedures CONSULT MATERNAL MEDICINE ULTRASOUND Preferred Location: [place] CONSULT MATERNAL MEDICINE ULTRASOUND Preferred Location: [facility] [address] [place] [address] DrKim Jorge [address] [place] [address] Reason for Visit Reason Comments ROUTINE VISIT Encounter Details Date Type Department Care Team Description 11/14/2019 Routine [facility] Women's AdumTawanna, 3 4 weeks gestation of (Primary Dx); Visit Healthcare- Gestational diabetes mellitus (GDM) in t hird trimester controlled on oral hypoglycemic drug; Beni [address] [place] [address] High-risk in third trimester; [address] [place], [place] [address]Dr. Previous section; [address] Jorge [address] Anemia of mother in , [place] [address] Allergies No Known Allergiesdocumented [...] to check blood sugar QID. DX: O24.410 ferrous sulfate Take 1 tablet 60 tablet 3 11/07/2019 Active 325 mg (65 mg by mouth 2 iron) EC (two) times tabletIndications: daily with 24 weeks gestation meals. of , Anemia of mother in , antepartum glyBURIDE 2.5 mg Take 1 tablet 60 tablet 1 11/14/2019 Active tabletIndications: by mouth 2 34 weeks gestation (two) times of , daily with Gestational meals. diabetes mellitus (GDM) in third trimester controlled on oral hypoglycemic drug glyBURIDE 1.25 mg To be taken 30 tablet 1 10/31/2019 Discontinued tabletIndications: at 10pm every 0 (Dose adjustment) Gestational night diabetes mellitus (GDM) in third trimester controlled on oral hypoglycemic drug documented as of this encounter (statuses as of 11/14/2019) Active Problems Problem Noted Date High-risk in third trimester 11/14/2019 34 weeks gestation of 10/31/2019 Gestational diabetes mellitus [...] been in contact with No / Unsure 11/14/2019 1:25 PM CDT someone who was confirmed or suspected to have Coronavirus / COVID-19? documented as of this encounter Last Filed Vital Signs Vital Sign Reading Time Taken Comments Blood Pressure 113/71 11/14/2019 1:25 PM CDT Pulse 90 11/14/2019 1:25 PM CDT Temperature 37.2 C (98.9 F) 11/14/2019 1:25 PM CDT Respiratory Rate 18 11/14/2019 1:25 PM CDT Oxygen Saturation - - Inhaled Oxygen Concentration - - Weight 80.8 kg (178 lb 3.2 oz) 11/14/2019 1:25 PM CDT Height 160 cm (5' 3") 11/14/2019 1:25 PM CDT Body Mass Index 31.57 11/14/2019 1:25 PM CDT documented in this encounter Patient Instructions Patient InstructionsLashonda Laird MA - 11/14/2019 1:00 PM CDT Patient Education Embarazo: Los cambios en el tercer trimestre A medida que el beb crece, hurley cuerpo tambin cambia. Tambin podra nicole indicios de que hurley cuerpo se est preparando para el parto. Sea paciente. Dentro de unas pocas semanas, hurley beb nacer. Los cambios de hurley cuerpo Hurley cuerpo se est preparando para el nacimiento de hurley beb. A continuacin se citan varios de loscambios ms comunes. Si tiene otras preguntas o preocupaciones, consulte con hurley proveedor de atencin mdica: Usted aumentar an ms de peso por los lquidos, la jose antonio adicional y los depsitos de grasa. Ngoc senos aumentarn de volumen para prepararse para alimentar al beb. Osvaldo vez se pongan ms sensibles. Tambin podra salirle un ligero lquido amarillento o blanquecino de los pezones. El flujo vaginal puede aumentar. [place] es normal. Podra cambiarle el color de la piel de la frente, las mejillas o la nariz. La mayora de estoscambios desaparecer anthony vez que usted d a megan. El desarrollo de hurley beb Mes 7 Hurley beb puede abrir y cerrar ngoc ojos y pesa aproximadamente 4 libras.Si nace prematuramente (demasiado pronto), es probable que hurley beb sobreviva con atencin mdica especial. Mes 8 Hurley beb est acumulando grasa en el cuerpo y pesa aproximadamente 6 libras. Mes 9 Hurley beb pesa seferino 7 libras y mide entre 19 y 21 pulgadas. En otras palabras, puede nacer en cualquier momento... [id number] [employer] [place] [address]. Todos los derechos reservados. Esta informacin no pretende sustituir la atencin mdica profesional. Slo hurley mdico puede diagnosticar y tratar un problema de huber. Patient Education Kick Counts Its normal to worry about your babys health. One way you can knowyour babys doing well isto record the babys movements once a day. This is called a kick count.Remember to take your kick count records to all your appointments with your healthcare provider. How to count kicks Time how long it takes you to feel 10 kicks, flutters, swishes, or rolls. Ideally, you want to feel at least 10 movements within 2 hours. You will likely feel 10 movements in less time than that. Starting at 28 weeks, count your baby's movements daily. Follow your healthcare provider's instructions for kick counting. Here are tips for counting kicks: Choose a time when the baby is active, such as after a meal. Sit comfortably or lie on your side. The first time the baby moves,write downthe time. Count each movement until the baby has [id number]. This can take from 20 minutes to 2hours. If you have not felt 10 kicks by the end of the second hour, wait a few hours. Then try again. Try to do it at the same time each day. When to call your healthcare provider Call your healthcare providerright awayif: You do a couple sets of kick counts during the day and your baby moves fewer than 10times [id number] Your baby moves much less often than on thedays before. You have not felt your baby move all day. [employer] last reviewed this educational content on 05/25/201719990046-4404 [employer]. [address] [place] [address]. All rights reserved. This information is not intended as a substitute for professional medical care. Always follow your healthcare professional's instructions. Patient Education Recuento de patadas Es normal que le preocupe la huber de hurley beb. Para saber si el beb est rosita, anthony de las cosas que puede hacer es anotar los movimientos del beb anthony vez al da. [place] es lo que se llama recuentode patadas. Recuerde llevar ngoc anotaciones con el recuento de patadas del beb a todas ngoc citas con hurley proveedor de atencin mdica. Out Of Town Collection Clerk contar las patadas de hurley beb Aqu tiene algunos consejos para contar las patadas de hurley beb: Escoja anthony hora cuando el beb est activo, bradley por ejemplo despus de anthony comida. Sintese cmodamente o acustese de lado. La primera vez que el beb se mueva, anote la hora. Cuente cada movimiento hasta que el beb se haya movido bere veces.([place] puede llevar entre veinte minutos y dos horas). Trate de hacer esto a la misma hora todos los rizvi. Cundo llamar a hurley proveedor de atencin mdica Llame a hurley proveedor de atencin mdica de inmediato en cualquiera de los siguientes casos: Si el beb se mueve menos de bere veces en dos horas mientras usted est llevando la cuenta de las pataditas. Si el beb se mueve con yancy menos frecuencia que en rizvi anteriores. Si usted no grant sentido movimientos del beb en todo el da. [phone] [employer]. [address] [place] [address]. Todos los derechos reservados. Esta informacin no pretende sustituir la atencin mdica profesional. Slo hurley mdico puede diagnosticar y tratar un problema de huber. documented in this encounter Progress Notes Adnae, Tawanna Fitch MD - 11/14/2019 1:00 PM CDT Chief complaint: Chief Complaint Patient presents with ROUTINE VISIT HPI See OB summary Histories OB History Para Term AB Living [...] file Gets together: Not on file Attends druze service: Not on file Active member of [...] Patient feels safe at home denies abuse. Pentecostalism preference: none Social History Substance and Sexual Activity Sexual Activity Yes Partners: Male Labs No new labs Radiology No new radiology. Allergies Marina has No Known Allergies. Medications Marina has a current medication list which includes the following prescription(s): glyburide, ferrous sulfate, blood sugar diagnostic, blood-glucose meter, lancets, and vit calc,iron,folic. Review of Systems BP 113/71 (BP Location: Left arm, Patient Position: Sitting, BP CUFF SIZE: Adult Medium) | Pulse 90 | Temp 37.2 C (98.9 F) (Oral) | Resp 18 | Ht 5' 3" (1.6 m) | Wt 178 lb 3.2 oz (80.8 kg) | LMP 03/20/2019 | BMI 31.57 kg/m Pregravid BMI: Could not be calculated Physical Exam Assessment/Plan 34 weeks gestation of (primary encounter diagnosis) See OB summary for discussion Plan: glyBURIDE 2.5 mg tablet, CONSULT MATERNAL MEDICINE ULTRASOUND Preferred Location: [place] Gestational diabetes mellitus (GDM) in third trimester controlled on oral hypoglycemic drug Plan: glyBURIDE 2.5 mg tablet, CONSULT MATERNAL MEDICINE ULTRASOUND Preferred Location: [place] High-risk in third trimester Comment: Plan: CONSULT MATERNAL MEDICINE ULTRASOUND Preferred Location: [place] Previous section Plan: CONSULT MATERNAL MEDICINE ULTRASOUND Preferred Location: [place] This visit did not involve counseling and coordination that comprised more than 50% of the visit time. Tawanna Reeves MD 11/14/2019 2:30 PM documented in this encounter Plan of Treatment Date Type Specialty Care Team Description 11/21/2019 Routine Visit Obstetrics & Gynecology Room, A [facility] Nst Health Maintenance Due Date Last Done Comments VARICELLA VACCINES (1 of 2 - 01/02/1988 2-dose childhood series) INFLUENZA VACCINE (Season 02/24/2020 05/22/2016 Ended) PAP SMEAR 08/22/2022 08/22/2019, 05/22/2016 DTaP,Tdap,and Td Vaccines (2 09/30/2029 10/01/2019 - Td) PNEUMOCOCCAL 0-64 YEARS Aged Out No longe r eligible based COMBINED SERIES on patient's age to complete [facility] documented as of this encounter Procedures Procedure Name Priority Date/Time Associated Comments Diagnosis POCT URINALYSIS W/O Routine 11/14/2019 1:27 PM R esults for this SPECIFIC GRAVITY CDT procedure a re in the results section. documented in this encounter Results POCT URINALYSIS W/O SPECIFIC GRAVITY (11/14/2019 1:27 PM CDT) Pathologist Sig nature POCT PH U n/a [...] documented in this encounter Visit Diagnoses Diagnosis 34 weeks gestation of - Primar y state, incidental Gestational diabetes mellitus (GDM) in t hird trimester controlled on oral hypoglycemic drug High-risk in third trimester Previous section Other postprocedural status Anemia of mother in , antepartu m Anemia, antepartum documented in this encounter Insurance Payer Benefit Plan / Subscriber ID Effective Dates Phone Addre ss Type Group BCBS OF [facility] [id number] 2018-Jacob [phone] P O CARYN X PPO/POS [place] - OUT OF STATE t 87 [id number] [place] [address] [facility] MEDICAID OF xxxxxxxxx 2019-Prese [phone] Johana Leon edicaid [facility] [address] [place] [address] (Home) [place] [address] documented as of this encounter
--- OUTSIDE RECORDS SUMMARY | 2020-01-08 20:11 | XMS REPORT | Summary of Care ---
:1985 Author Organization [facility] Address [address] [place] [address] Care Team Providers Name Role Phone Pcp, Patient Does Not Have A Primary Care Provider +[phone] 0-0000 Encounter Details Date Type Department Care Team Description 10/31/2019 Orders Only [facility] Doctor Unassigned, No 301 [facility] Name [place] V[place] [id number] [place] [address] Allergies No Known Allergiesdocumented as of this encounter (statuses as of 11/06/2019) Medications Medication Sig Dispensed Refills Start Date [...] as of this encounter (statuses as of 11/06/2019) Active Problems Problem Noted Date 32 weeks [...] as of this encounter (statuses as of 11/06/2019) Resolved Problems Problem Noted Date Resolved Date 24 weeks gestation of 08/22/2019 10/01/19 20 documented as of this encounter (statuses as of 11/06/2019) Immunizations Name Administration Dates Next Due Influenza [...] & Adum, Tawanna Fitch MD Visit Gynecology [address] [place] [address] Dr. [place], [place] [address] Health Maintenance Due Date Last Done [...] Name Priority Date/Time Associated Diagnosis Comme nts DIABETES TESTING Routine 10/31/2019 12:01 AM CDT REPORTS documented in this encounter Results Not on filedocumented in this encounter Insurance Payer Benefit Plan / Subscriber ID Effective Dates Phone Addre ss Type Group BC[place] [id number] 2018-Pressanthosh [phone] P O CARYN X PPO/POS [place] - OUT OF STATE t 87 [id number] [place] [address] [facility] MEDICAID OF xxxxxxxxx 2019-Preszulema [phone] [address] edicaid [place] nt [address] [place] [address] documented as of this encounter
--- OUTSIDE RECORDS SUMMARY | 2020-01-08 20:11 | XMS REPORT | Summary of Care ---
:1985 Author Organization [facility] Address [address] [place] [address] Care Team Providers Name Role Phone Pcp, Patient Does Not Have A Primary Care Provider +[phone] 0-0000 Reason for Referral (Routine) Status Reason Specialty Diagnoses / Referred By Referred To Procedures Contact Contact New Request Maternal Diagnoses 34 weeks gestation of Gestational diabetes mellitus (GDM) in third trimester controlled on oral hypoglycemic drug High-risk in third trimester Previous section Adum, Tawanna Fitch, Medicine Procedures CONSULT MATERNAL MEDICINE ULTRASOUND Preferred Location: [facility] [address] [place] [address] DrKim Jorge [address] [place] [address] Reason for Visit Reason Comments ROUTINE VISIT Encounter Details Date Type Department Care Team Description 11/14/2019 Routine [facility] Women's Adum, Tawanna Fitch, 3 4 weeks gestation of (Primary Dx); Visit Healthcare- Gestational diabetes mellitus (GDM) in t hird trimester controlled on oral hypoglycemic drug; [address] High-risk in third trimester; [address] [place], [place] [address]Dr. Previous section; [address] Anemia of mother in , [place] [address] Allergies No Known Allergiesdocumented [...] in this encounter Patient Instructions Patient InstructionsLashonda Laird, RICKI - 11/14/2019 1:00 PM CDT Patient Education [...] los pezones. El flujo vaginal puede aumentar. [place] es normal. Podra cambiarle el color de [...] otras palabras, puede nacer en cualquier momento... [phone] [employer]. [address] [place] [address]. Todos los derechos reservados. Esta informacin no [...] Count each movement until the baby has [id number]. This can take from 20 minutes to [...] and your baby moves fewer than 10times [id number] Your baby moves much less often than on thedays before. You have not felt your baby move all day. [employer] last reviewed this educational content on 05/25/201719996346-2337 [employer]. [address] [place] [address]. All rights reserved. This information is not intended as a substitute for professional medical care. Always follow your healthcare professional's instructions. Patient Education Recuento de patadas Es normal que le preocupe la huber de hurley beb. Para saber si el beb est rosita, anthony de las cosas que puede hacer es anotar los movimientos del beb anthony vez al da. [place] es lo que se llama recuentode patadas. Recuerde llevar ngoc anotaciones con el recuento de patadas del beb a todas ngoc citas con hurley proveedor de atencin mdica. Cable Installation Manager contar las patadas de hurley beb Aqu tiene algunos consejos para contar las patadas de hurley beb: Escoja anthony hora cuando el beb est activo, bradley por ejemplo despus de anthony comida. Sintese cmodamente o acustese de lado. La primera vez que el beb se mueva, anote la hora. Cuente cada movimiento hasta que el beb se haya movido bere veces.([place] puede llevar entre veinte minutos y dos [...] movimientos del beb en todo el da. [phone] [employer]. [address] [place] [address]. Todos los derechos reservados. Esta informacin no pretende sustituir la atencin mdica profesional. Slo hurley mdico puede diagnosticar y tratar un problema de huber. documented in this encounter Progress Notes Tawanna Reeves MD - 11/14/2019 1:00 PM CDT Chief [...] file Gets together: Not on file Attends rastafarian service: Not on file Active member of [...] Patient feels safe at home denies abuse. Islam preference: none Social History Substance and Sexual [...] tablet, CONSULT MATERNAL MEDICINE ULTRASOUND Preferred Location: [place] Gestational diabetes mellitus (GDM) in third trimester controlled on oral hypoglycemic drug Plan: glyBURIDE 2.5 mg tablet, CONSULT MATERNAL MEDICINE ULTRASOUND Preferred Location: [place] High-risk in third trimester Comment: Plan: CONSULT MATERNAL MEDICINE ULTRASOUND Preferred Location: [place] Previous section Plan: CONSULT MATERNAL MEDICINE ULTRASOUND Preferred Location: [place] This visit did not involve counseling and coordination that comprised more than 50% of the visit time. Tawanna Reeves MD 11/14/2019 2:30 PM documented in this encounter Plan of Treatment Date Type Specialty Care Team Description 11/21/2019 Routine Visit Obstetrics & Gynecology Room, A [facility] Nst Health Maintenance Due Date Last Done [...] Phone Addre ss Type Group BCBS OF [facility] [id number] 2018-Jacob [phone] P O CARYN X PPO/POS [place] - OUT OF STATE t 87 [id number] [place] [address] [facility] MEDICAID OF xxxxxxxxx 2019-Prese [phone] P O POOJA Leon edicaid [facility] [address] [place] [address] documented as of this encounter
--- OUTSIDE RECORDS SUMMARY | 2020-01-08 20:12 | XMS REPORT | Summary of Care ---
:1985 Author Organization [facility] Address [address] [place] [address] Care Team Providers Name Role Phone Pcp, Patient Does Not Have A Primary Care Provider +[phone] 0-0000 Encounter Details Date Type Department Care Team Description 11/14/2019 Orders Only [facility] Doctor Unassigned, No 301 [facility] Name Angela V[place] [phone] [place] [address] Allergies No Known Allergiesdocumented as of this encounter (statuses as of 11/20/2019) Medications Medication Sig Dispensed Refills Start Date [...] check blood sugar QID. DX: O24.410 glyBURIDE 2.5 mg Take 1 tablet by 60 tablet 1 11/14/2019 Active tabletIndications: 34 mouth 2 (two) weeks gestation of times daily with , Gestational meals. diabetes mellitus (GDM) in third trimester controlled on oral hypoglycemic drug documented as of this encounter (statuses as of 11/20/2019) Active Problems Problem Noted Date High-risk in [...] as of this encounter (statuses as of 11/20/2019) Resolved Problems Problem Noted Date Resolved Date 24 weeks gestation of 08/22/2019 10/01/19 20 documented as of this encounter (statuses as of 11/20/2019) Immunizations Name Administration Dates Next Due Influenza [...] 11/21/2019 Routine Visit Obstetrics & Gynecology Room, [facility] Nst Health Maintenance Due Date Last Done Comments VARICELLA VACCINES (1 of 2 - 01/02/1988 2-dose childhood series) Depression Screening 1999 INFLUENZA VACCINE (Season 02/24/2020 05/22/2016 Ended) PAP SMEAR 08/22/2022 08/22/2019, 05/22/2016 DTaP,Tdap,and Td Vaccines (2 09/30/2029 10/01/2019 - Td) PNEUMOCOCCAL 0-64 YEARS Aged Out No longe r eligible based COMBINED SERIES on patient's age to complete this to pic documented as of this encounter Procedures Procedure Name Priority Date/Time Associated Diagnosis Comme nts PATIENT QUESTIONNAIRE Routine 11/14/2019 12:01 AM CDT documented in this encounter Results Not on filedocumented in this encounter Insurance Payer Benefit Plan / Subscriber ID Effective Dates Phone Addre ss Type Group BCBS OF [employer] [id number] 2018-Presen [phone] P O CARYN X PPO/POS [place] - OUT OF STATE t 87 [id number] [place] [address] [place] MEDICAID OF xxxxxxxxx 2019-Prese [phone] [address] edicaid [place] nt [address] [place] [address] documented as of this encounter
--- OUTSIDE RECORDS SUMMARY | 2020-01-08 20:12 | XMS REPORT | Summary of Care ---
:1985 Author Organization [facility] Address [address] [place] [address] Care Team Providers Name Role Phone Pcp, Patient Does Not Have A Primary Care Provider +[phone] 0-0000 Reason for Visit Reason Comments Rx Concern/Question Encounter Details Date Type Department Care Team Description 11/19/2019 Telephone [facility] Women's Adum, Tawanna Fitch MD Rx Concern/Question Healthcare- [address] [place] [address], [facility] [address] [place] [address] [phone] Allergies No Known Allergiesdocumented as of this encounter (statuses as of 11/19/2019) Medications Medication Sig Dispensed Refills Start Date [...] DX: O24.410 glyBURIDE 2.5 mg Take 1 60 tablet 1 11/14/2019 Ac tive tabletIndications: tablet by 34 weeks gestation mouth 2 of , (two) times Gestational daily with diabetes mellitus meals. (GDM) in third trimester controlled on oral hypoglycemic drug ferrous sulfate Take 1 180 tablet 1 11/19/2019 Ac tive 325 mg (65 mg tablet by 0 iron) EC mouth 2 tabletIndications: (two) times 24 weeks gestation daily with of , meals for 90 Anemia of mother days. in , antepartum ferrous sulfate Take 1 60 tablet 3 11/07/2019 Dis continued 325 mg (65 mg tablet by 0 (Reord er) iron) EC mouth 2 tabletIndications: (two) times 24 weeks gestation daily with of , meals. Anemia of mother in , antepartum documented as of this encounter (statuses as of 11/19/2019) Active Problems Problem Noted Date High-risk in [...] as of this encounter (statuses as of 11/19/2019) Resolved Problems Problem Noted Date Resolved Date 24 weeks gestation of 08/22/2019 10/01/19 20 documented as of this encounter (statuses as of 11/19/2019) Immunizations Name Administration Dates Next Due Influenza [...] Routine Visit Obstetrics & Gynecology Room, A [facility] Nst Health Maintenance Due Date Last Done Comments VARICELLA VACCINES (1 of - 01/02/1988 2-dose childhood series) INFLUENZA VACCINE (Season 02/24/2020 05/22/2016 Ended) PAP SMEAR 08/22/2022 08/22/2019, 05/22/2016 DTaP,Tdap,and Td Vaccines (2 09/30/2029 10/01/2019 - Td) PNEUMOCOCCAL 0-64 YEARS Aged Out No longe r eligible based COMBINED SERIES on patient's age to complete [facility] documented as of this encounter Results Not on filedocumented in this encounter Visit Diagnoses Diagnosis 24 weeks gestation of state, incidental Anemia of mother in , antepartu m Anemia, antepartum documented in this encounter Insurance Payer Benefit Plan / Subscriber ID Effective Dates Phone Addre ss Type Group BCBS OF [employer] [place] [id number] 2018-Jacob [phone] P O CARYN X PPO/POS [place] - OUT OF STATE t 87 [id number] [place] [address] [facility] MEDICAID OF xxxxxxxxx 2019-Kirk [phone] [address] edicaid [place] nt 00 [address] [place] [address] documented as of this encounter
--- OUTSIDE RECORDS SUMMARY | 2020-01-08 20:12 | XMS REPORT | Summary of Care ---
:1985 Author Organization [facility] Address [address] [place] [address] Care Team Providers Name Role Phone Pcp, Patient Does Not Have A Primary Care Provider +[phone] 0-0000 Reason for Visit Reason Comments NON-STRESS TEST Encounter Details Date Type Department Care Team Description 11/21/2019 Routine [facility] Women's Margarita Liz PA-C [address] [place] [address] [address] [place] [address] High-risk in third trimester ( Primary Dx); [facility] 35 [facility] gestation of [address], [address] [place] [address] Allergies No Known Allergiesdocumented as of this encounter (statuses as of 11/21/2019) Medications Medication Sig Dispensed Refills Start Date End Date Status vit Take by mouth. 0 A ctive calc,iron,folic ( VITAMIN ORAL) Blood-Glucose Meter Use as directed; 1 Kit 1 10/20/2019 Active (BLOOD GLUCOSE patient to check MONITORING) Kit blood sugar QID. DX: O24.410 blood sugar Use as directed; 100 Strip 2 10/20/2019 Active diagnostic strip Patient to check blood glucose QID. DX: O24.410 Lancets Misc Use as directed; 100 Each 2 10/20/2019 Active Patient to check blood sugar QID. DX: O24.410 glyBURIDE 2.5 mg Take 1 tablet by 60 tablet 1 11/14/2019 Active tabletIndications: 34 mouth 2 (two) weeks gestation of times daily with , meals. Gestational diabetes mellitus (GDM) in third trimester controlled on oral hypoglycemic drug ferrous sulfate 325 Take 1 tablet by 180 tablet 1 11/19/2019 0 02/17/2020 Active mg (65 mg iron) EC mouth 2 (two) tabletIndications: 24 times daily with weeks gestation of meals for 90 , Anemia of days. mother in , antepartum documented as of this encounter (statuses as of 11/21/2019) Active Problems Problem Noted Date High-risk in [...] as of this encounter (statuses as of 11/21/2019) Resolved Problems Problem Noted Date Resolved Date 24 weeks gestation of 08/22/2019 10/01/19 20 documented as of this encounter (statuses as of 11/21/2019) Immunizations Name Administration Dates Next Due Influenza [...] been in contact with No / Unsure 11/21/2019 1:04 PM CDT someone who was confirmed or suspected to have Coronavirus / COVID-19? documented as of this encounter Last Filed Vital Signs Not on filedocumented in this encounter Progress Notes Alicia Liz PA-C - 11/21/2019 1:00 PM CDTSee ob summary documented in this encounter Plan of Treatment Date Type Specialty Care Team Description 11/21/2019 Ancillary Procedure Obstetrics & Alicia Liz Arri steven Gynecology ELIF [address] [place] [address] Health Maintenance Due Date Last Done Comments VARICELLA VACCINES (1 of 2 - 01/02/1988 2-dose childhood series) Depression Screening 1999 INFLUENZA VACCINE (Season 02/24/2020 05/22/2016 Ended) PAP SMEAR 08/22/2022 08/22/2019, 05/22/2016 DTaP,Tdap,and Td Vaccines (2 09/30/2029 10/01/2019 - Td) PNEUMOCOCCAL 0-64 YEARS Aged Out No longe r eligible based COMBINED SERIES on patient's age to complete this to [facility] documented as of this encounter Procedures Procedure Name Priority Date/Time Associated Diagnosis Comme nts NON-STRESS Routine 11/21/2019 3:35 PM High-risk pregnan cy Results for this TEST CDT in third trimest er procedure are in 35 weeks gestation the resul ts of section. documented in this encounter Results NON-STRESS TEST (11/21/2019 3:35 PM CDT) Specimen Narrative Performed At This result has an attachment that is no t available. Reactive and reassuring NST PACS Performing Organization Address City/State/Zipcode Phone Number PACS documented in this encounter Visit Diagnoses Diagnosis High-risk in third trimester - Primary 35 weeks gestation of state, incidental documented in this encounter Insurance Payer Benefit Plan / Subscriber ID Effective Dates Phone Addre ss Type Group [employer] [place] [id number] 2018-Jacob [phone] P O CARY[place] X PPO/POS [place] - OUT OF STATE t [id number] [place] [address] [facility] MEDICAID OF xxxxxxxxx 2019-Prese [phone] Johana Leon edicaid [facility] 00 [id number] [place] [address] documented as of this encounter
--- OUTSIDE RECORDS SUMMARY | 2020-01-08 20:12 | XMS REPORT | Summary of Care ---
:1985 Author Organization [facility] Address [address] [place] [address] Care Team Providers Name Role Phone Pcp, Patient Does Not Have A Primary Care Provider +[phone] 0-0000 Reason for Visit Reason Comments LAB WORK Encounter Details Date Type Department Care Team Description 12/05/2019 Junk Removal Specialist Visit [facility] AdTawanna soni MD [address] [place] [address] [address] [place] [address] 36 weeks gestation of ; Professional Office 2, Adc Lab High-risk in third trimester Building Phlebotomy Lab Professional Office Building [address] [place] [address] , [address] [place] [address] Allergies No Known Allergiesdocumented as of this encounter (statuses as of 12/06/2019) Medications Medication Sig Dispensed Refills Start Date [...] blood sugar QID. DX: O24.410 ferrous sulfate 325 Take 1 tablet by 180 tablet 1 11/19/2019 0 02/17/2020 Active mg (65 mg iron) EC mouth 2 (two) tabletIndications: 24 times daily with weeks gestation of meals for 90 , Anemia of days. mother in , antepartum glyBURIDE 2.5 mg Take 1 tablet by 60 tablet 1 12/05/2019 Active tabletIndications: mouth with Gestational diabetes evening meal. mellitus (GDM) in third trimester controlled on oral hypoglycemic drug glyBURIDE 5 mg Take 1 tablet by 30 tablet 0 12/05/2019 Active tabletIndications: mouth daily with Gestational diabetes breakfast. mellitus (GDM) in third trimester controlled on oral hypoglycemic drug documented as of this encounter (statuses as of 12/06/2019) Active Problems Problem Noted Date High-risk in third trimester 11/14/2019 37 weeks gestation of 10/31/2019 Gestational diabetes mellitus [...] as of this encounter (statuses as of 12/06/2019) Resolved Problems Problem Noted Date Resolved Date 24 weeks gestation of 08/22/2019 10/01/19 20 documented as of this encounter (statuses as of 12/06/2019) Immunizations Name Administration Dates Next Due Influenza [...] been in contact with No / Unsure 12/05/2019 1:05 PM CDT someone who was confirmed or suspected to have Coronavirus / COVID-19? documented as of this encounter Last Filed Vital Signs Not on filedocumented in this encounter Plan of Treatment Date Type Specialty Care Team Description 12/09/2019 Routine Visit Obstetrics & Gynecology Room, A yasmin Nst 12/12/2019 Routine Visit Obstetrics & Gynecology Room, A yasmin Nst 12/17/2019 Laboratory Only Clinical Medical Only, Adc Test Laboratory Health Maintenance Due Date Last Done Comments VARICELLA VACCINES (1 of 2 - 01/02/1988 2-dose childhood series) Depression Screening 1999 INFLUENZA VACCINE (Season 02/24/2020 05/22/2016 Ended) PAP SMEAR 08/22/2022 08/22/2019, 05/22/2016 DTaP,Tdap,and Td Vaccines (2 09/30/2029 10/01/2019 - Td) PNEUMOCOCCAL 0-64 YEARS Aged Out No longe r eligible based COMBINED SERIES on patient's age to complete this to the medical center documented as of this encounter Procedures Procedure Name Priority Date/Time Associated Comments Diagnosis CBC WITH DIFFERENTIAL Routine 12/05/2019 3:09 36 weeks gestat ion Results for this PM CDT of procedure are in High-risk the resu lts in third trimester section. CBC WITH DIFFERENTIAL Routine 12/05/2019 3:09 36 weeks gestat ion Results for this PM CDT of procedure are in High-risk the resu lts in third trimester section. documented in this encounter Results CBC WITH DIFFERENTIAL (12/05/2019 3:09 PM CDT) Pathologist Sig nature WBC 8.78 4.30 - 11.10 [facility] 10*3/L HOSPITAL LAB[facility] RBC 3.35 (L) 3.93 - 5.25 [facility] 10*6/L HOSPITAL [facility] HGB 10.6 (L) 11.6 - 15.0 [facility] g/dL [facility] HCT 32.4 (L) 35.7 - 45.2 % [facility] LABORATORY MCV 96.7 (H) 80.6 - 95.5 fL [facility]OR[facility]ORY MCH 31.6 25.9 - 32.8 pg [facility] MCHC 32.7 31.6 - 35.1 [facility] g/dL HOSPITAL LAB[facility] RDW-SD 45.5 39.0 - 49.9 fL [facility] RDW-CV 13.0 12.0 - 15.5 % [facility]OR[facility] PLT 170 166 - 358 [facility] 10*3/L [facility] MPV 12.9 9.5 - 12.9 fL [facility] NRBC/100 WBC 0.0 0.0 - 10.0 /100 [facility] WBCs [facility] NRBC x10^3 <0.01 10*3/L [facility] LABOR[facility]ORY GRAN MAT (NEUT) % 75.4 % [facility] IMM GRAN % 0.80 % [facility] LYMPH % 15.0 % [facility] MONO % 7.6 % [facility] EOS % 1.1 % [facility] LABOR[facility] BASO % 0.1 % [facility]OR[facility] GRAN MAT x10^3(ANC) 6.61 1.88 - 7.09 [facility] 10*3/uL [facility] IMM GRAN x10^3 0.07 (H) 0.00 - 0.06 [facility] 10*3/uL [facility] LYMPH x10^3 1.32 1.32 - 3.29 [facility] 10*3/uL [facility] MONO x10^3 0.67 0.33 - 0.92 [facility] 10*3/uL [facility] EOS x10^3 0.10 0.03 - 0.39 [facility] 10*3/uL [facility] BASO x10^3 <0.03 0.01 - 0.07 [facility] 10*3/uL [facility] Specimen Blood Performing Organization Address City/State/Zipcode Phone Number [facility] CLIA: [id number], [address] [place], [place] [address] documented in this encounter Visit Diagnoses Diagnosis 36 weeks gestation of state, incidental High-risk in third trimester documented in this encounter Insurance Payer Benefit Plan / Subscriber ID Effective Phone Address T ype Group Dates [facility] [id number] 2018-Kirk [phone] [address] PPO/POS - OUT OF STATE nt [phone] [place] [address] [facility] CHILDRENS xxxxxxxxx 2019-Kirk [facility]IL[facility] HEALTH PLAN - MANAGED MEDICAID documented as of this encounter
--- OUTSIDE RECORDS SUMMARY | 2020-01-08 20:12 | XMS REPORT | Summary of Care ---
:1985 Author Organization [facility] Address [address] [place] [address] Care Team Providers Name Role Phone Pcp, Patient Does Not Have A Primary Care Provider +1-000-00 0-0000 Reason for Visit Reason Comments ULTRASOUND (Routine) Status Reason Specialty Diagnoses / Referred By Referred To Procedures Contact Contact Closed Maternal Diagnoses 34 weeks gestation of Gestational diabetes mellitus (GDM) in third trimester controlled on oral hypoglycemic drug High-risk in third trimester Previous section Adum, Tawanna Fitch, Medicine Procedures CONSULT MATERNAL MEDICINE ULTRASOUND Preferred Location: [facility] CONSULT MATERNAL MEDICINE ULTRASOUND Preferred Location: [facility]i [facility]ALL [address] [place] [address] DrKim [address] [place] [address] Encounter Details Date Type Department Care Team Description 11/28/2019 Master Baker Visit [facility] Women's ArtieEsvin MD [address] [facility] [id number] [place] [address] Supervision of with insufficie nt care in third trimester; [facility] Ultrasound, Adc Mfm Previous delivery, antepartum c ondition or complication [address] [facility], [address] [place] [address] Allergies No Known Allergiesdocumented as of this encounter (statuses as of 11/28/2019) Medications Medication Sig Dispensed Refills Start Date [...] as of this encounter (statuses as of 11/28/2019) Active Problems Problem Noted Date High-risk in [...] as of this encounter (statuses as of 11/28/2019) Resolved Problems Problem Noted Date Resolved Date 24 weeks gestation of 08/22/2019 10/01/19 20 documented as of this encounter (statuses as of 11/28/2019) Immunizations Name Administration Dates Next Due Influenza [...] been in contact with No / Unsure 11/28/2019 2:01 PM CDT someone who was confirmed or suspected to have Coronavirus / COVID-19? documented as of this encounter Last Filed Vital Signs Not on filedocumented in this encounter Plan of Treatment Health Maintenance Due Date Last Done Comments VARICELLA VACCINES (1 of 2 - 01/02/1988 2-dose childhood series) Depression Screening 1999 INFLUENZA VACCINE (Season 02/24/2020 05/22/2016 Ended) PAP SMEAR 08/22/2022 08/22/2019, 05/22/2016 DTaP,Tdap,and Td Vaccines (2 09/30/2029 10/01/2019 - Td) PNEUMOCOCCAL 0-64 YEARS Aged Out No longe r eligible based COMBINED SERIES on patient's age to complete this to [facility] documented as of this encounter Results Not on filedocumented in this encounter Visit Diagnoses Diagnosis Supervision of with insufficie nt care in third trimester Insufficient care Previous delivery, antepartum c ondition or complication documented in this encounter Insurance Payer Benefit Plan / Subscriber ID Effective Phone Address T ype Group Dates [facility] [id number] 2018-Prese [phone] [address] PPO/POS - OUT OF STATE nt [id number] [place] [address] [facility]ENS xxxxxxxxx 2019-Prese [place] CHILDRENS HEALTH nt HEALTH PLAN - MANAGED MEDICAID documented as of this encounter
--- OUTSIDE RECORDS SUMMARY | 2020-01-08 20:12 | XMS REPORT | Summary of Care ---
:1985 Author Organization [facility] Address [address] [place] [address] Care Team Providers Name Role Phone Pcp, Patient Does Not Have A Primary Care Provider +1-000-00 0-0000 Reason for Visit Reason Comments ROUTINE VISIT NON-STRESS TEST Encounter Details Date Type Department Care Team Description 11/28/2019 Routine [facility] Women's Adum, Brenda Fitch MD [address] [place] [address] DrKim [address] [place] [address] 36 weeks gestation of (Primary Dx); Visit Healthcare- Room, [facility] High-risk in third trimester; [place] Gestational diabetes mellitu s (GDM) in third trimester controlled on oral hypoglycemic drug [address] [facility], [address] [place] [address] Allergies No Known Allergiesdocumented as [...] Noted Date High-risk in third trimester 11/14/2019 36 weeks gestation of 10/31/2019 Gestational diabetes mellitus [...] Sign Reading Time Taken Comments Blood Pressure 111/65 11/28/2019 2:56 PM CDT Pulse 89 11/28/2019 2:56 PM CDT Temperature 37 C (98.6 F) 11/28/2019 2:56 PM CDT Respiratory Rate 18 11/28/2019 2:56 PM CDT Oxygen Saturation - - Inhaled Oxygen Concentration - - Weight 83.5 kg (184 lb) 11/28/2019 2:56 PM CDT Height - - Body Mass Index 32.59 11/14/2019 1:25 PM CDT documented in this encounter Progress Notes Tawanna Reeves MD - 11/28/2019 2:00 PM CDT Chief complaint: Chief Complaint Patient presents with ROUTINE VISIT NON-STRESS TEST HPI See OB summary Histories OB History [...] file Gets together: Not on file Attends christianity service: Not on file Active member of [...] Patient feels safe at home denies abuse. Holiness preference: none Social History Substance and Sexual Activity Sexual Activity Yes Partners: Male Labs No new labs Radiology I have reviewed the patient's radiology. Growth sonogram Allergies Marina has No Known Allergies. Medications Marina has a current medication list which includes the following prescription(s): ferrous sulfate, glyburide, blood sugar diagnostic, blood-glucose meter, lancets, and vit calc,iron,folic. Review of Systems BP 111/65 (BP Location: Left arm, Patient Position: Sitting, BP CUFF SIZE: Adult Medium) | Pulse 89 | Temp 37 C (98.6 F) (Oral) | Resp 18 | Wt 184 lb (83.5 kg) | LMP 03/20/2019 | BMI 32.59 kg/m Pregravid BMI: Could not be calculated Physical Exam Assessment/Plan 36 weeks gestation of (primary encounter diagnosis) Plan: POCT URINALYSIS W/O SPECIFIC GRAVITY, CBC WITH DIFF, GC & CHLAMYDIA AMPLIFIED ASSAY, GROUP B STREPTOCOCCUS BY PCR High-risk in third trimester Plan: CBC WITH DIFF, GC & CHLAMYDIA AMPLIFIED ASSAY, GROUP B STREPTOCOCCUS BY PCR Gestational diabetes mellitus (GDM) in third trimester controlled on oral hypoglycemic drug This visit did not involve counseling and coordination that comprised more than 50% of the visit time. documented in this encounter Plan of Treatment Date Type Specialty Care Team Description 12/02/2019 Routine Visit Obstetrics & Gynecology Room, A yasmin Rubio Nst 12/05/2019 Routine Visit Obstetrics & Gynecology Room, A yasmin Shawt Name Type Priority Associated Diagnoses Order S chedule CBC WITH DIFF LAB Routine 36 weeks gestation of Expec gaviota: 11/28/2019, Expires: 02/28/2020 High-risk in third trimester GC & CHLAMYDIA AMPLIFIED LAB Routine 36 weeks gestati on of Ordered: 11/28/2019 ASSAY High-risk in third trimester GROUP B STREPTOCOCCUS BY LAB Routine 36 weeks gestati on of Ordered: 11/28/2019 PCR High-risk in third trimester Health Maintenance Due Date Last Done Comments [...] Date/Time Associated Diagnosis Comme nts NON-STRESS Routine 11/28/2019 6:29 36 weeks gestation o f Results for this TEST PM CDT procedure are in High-risk the resu lts in third trimest er section. Gestational diabetes mellitus (GDM) in third trimester controlled on oral hypoglycemic drug POCT URINALYSIS W/O Routine 11/28/2019 36 weeks gestation of Results for this SPECIFIC GRAVITY procedure a re in the results section. documented in this encounter Results NON-STRESS TEST (11/28/2019 6:29 PM CDT) Specimen Narrative Performed At This result has an attachment that is no t available. FHR 130's, moderate variability accels present( more than 2 lasting more PACS than 15sec), no decles. Reactive NST Tawanna Reeves MD 11/28/2019 6:31 PM Performing Organization Address City/State/Zipcode Phone Number PACS POCT URINALYSIS W/O SPECIFIC GRAVITY (11/28/2019) Pathologist Sig nature POCT PH U N/A 5 - 8 mg/dl POCT U LEUK EST N/A Negative - Negative POCT U NIT N/A Negative - Negative POCT U PROT Negative Negative - Negative POCT U GLU Negative Negative - Negative POCT U KETONE N/A Negative - Negative POCT U BLD N/A Negative - Negative Specimen Urine - URINE, CLEAN CATCH documented in this encounter Visit Diagnoses Diagnosis 36 weeks gestation of - Primar y state, incidental High-risk in third trimester Gestational diabetes mellitus (GDM) in t hird trimester controlled on oral hypoglycemic drug documented in this encounter Insurance Payer Benefit Plan / Subscriber ID Effective Phone Address T ype Group Dates [facility] [id number] 2018-Kirk [phone] [address] PPO/POS - OUT OF STATE nt [phone] [id number] [place] [address] [facility] CHILDRENS xxxxxxxxx 2019-Kirk Walker [facility] HEALTH PLAN - MANAGED MEDICAID documented as of this encounter"
--- OUTSIDE RECORDS SUMMARY | 2020-01-08 20:13 | XMS REPORT | Summary of Care ---
:1985 Author Organization [facility] Address [address] [place] [address] Care Team Providers Name Role Phone Pcp, Patient Does Not Have A Primary Care Provider +1-000-00 0-0000 Reason for Visit Reason Comments NON-STRESS TEST Encounter Details Date Type Department Care Team Description 12/09/2019 Routine [facility] Women's Adum, Brenda Fitch MD [address] [place] [address] [facility] [address] [place] [address] 37 weeks gestation of (Primary Dx); Visit Healthcare- Room, [facility] Nst Gestational diabetes mellitus (GDM) in t hird trimester controlled on oral hypoglycemic drug; [place] NST (non-stress test) reacti ve [address] [facility], [address] [place] [address] Allergies No Known Allergiesdocumented as of this encounter (statuses as of 12/09/2019) Medications Medication Sig Dispensed Refills Start Date [...] as of this encounter (statuses as of 12/09/2019) Active Problems Problem Noted Date High-risk in [...] as of this encounter (statuses as of 12/09/2019) Resolved Problems Problem Noted Date Resolved Date 24 weeks gestation of 08/22/2019 10/01/19 20 documented as of this encounter (statuses as of 12/09/2019) Immunizations Name Administration Dates Next Due Influenza [...] been in contact with No / Unsure 12/09/2019 10:53 AM CDT someone who was confirmed or suspected to have Coronavirus / COVID-19? documented as of this encounter Last Filed Vital Signs Vital Sign Reading Time Taken Comments Blood Pressure 117/72 12/09/2019 1:08 PM CDT Pulse 89 12/09/2019 1:08 PM CDT Temperature 36.8 C (98.2 F) 12/09/2019 1:08 PM CDT Respiratory Rate - - Oxygen Saturation - - Inhaled Oxygen Concentration - - Weight 85.3 kg (188 lb) 12/09/2019 1:08 PM CDT Height 160 cm (5' 3") 12/09/2019 1:08 PM CDT Body Mass Index 33.3 12/09/2019 1:08 PM CDT documented in this encounter Plan of Treatment Date Type Specialty Care Team Description 12/12/2019 Routine Visit Obstetrics & Gynecology Room, A [facility] Nst 12/17/2019 Laboratory Only Clinical Medical Only, [...] Date/Time Associated Diagnosis Comme nts NON-STRESS Routine 12/09/2019 2:47 37 weeks gestation o f Results for this TEST PM CDT procedure are in Gestational diabetes the res ults mellitus (GDM) in section. third trimester controlled on oral hypoglycemic drug POCT URINALYSIS W/O Routine 12/09/2019 37 weeks gestation of Results for this SPECIFIC GRAVITY procedure a re in the results section. documented in this encounter Results NON-STRESS TEST (12/09/2019 2:47 PM CDT) Specimen Narrative Performed At This result has an attachment that is no t available. 130's, moderate variability, accels present, no decels. PACS Reactive NST Tawanna Reeves MD Performing Organization Address City/State/Zipcode Phone Number PACS POCT URINALYSIS W/O SPECIFIC GRAVITY (12/09/2019) Pathologist Sig nature POCT PH U N/A [...] documented in this encounter Visit Diagnoses Diagnosis 37 weeks gestation of - Primar y state, incidental Gestational diabetes mellitus (GDM) in t hird trimester controlled on oral hypoglycemic drug NST (non-stress test) reactive Other specified screening documented in this encounter Insurance Payer Benefit Plan / Subscriber ID Effective Phone Address T ype Group Dates [facility] [id number] 2018-Kirk [phone] [address] PPO/POS - OUT OF STATE nt [id number] [place] [address] [facility] CHILDRENS xxxxxxxxx 2019-Kirk Ct dicaid CHILDRENS HEALTH HEALTH PLAN - MANAGED MEDICAID documented as of this encounter
--- OUTSIDE RECORDS SUMMARY | 2020-01-08 20:13 | XMS REPORT | Summary of Care ---
:1985 Author Organization [facility] Address [address] [place] [address] Care Team Providers Name Role Phone Pcp, Patient Does Not Have A Primary Care Provider +[id number] 0-0000 Reason for Visit Reason Comments Refill Request Encounter Details Date Type Department Care Team Description 12/10/[address] [facility] Women's Adum, Tawanna Fitch MD Refill Request Healthcare- [address] [facility], [address] [place] [address] [place] [address] [phone] Allergies No Known Allergiesdocumented as of this encounter (statuses as of 12/10/2019) Medications Medication Sig Dispensed Refills Start Date [...] as of this encounter (statuses as of 12/10/2019) Active Problems Problem Noted Date High-risk in [...] as of this encounter (statuses as of 12/10/2019) Resolved Problems Problem Noted Date Resolved Date 24 weeks gestation of 08/22/2019 10/01/19 20 documented as of this encounter (statuses as of 12/10/2019) Immunizations Name Administration Dates Next Due Influenza [...] 12/12/2019 Routine Visit Obstetrics & Gynecology Room, Leonie Rubio Nst 12/17/2019 Laboratory Only Clinical Medical Only, [...] on patient's age to complete [facility] to [facility] documented as of this encounter Results Not on filedocumented in this encounter Visit Diagnoses Diagnosis Gestational diabetes mellitus (GDM) in t hird trimester controlled on oral hypoglycemic drug documented in this encounter Insurance Payer Benefit Plan / Subscriber ID Effective Phone Address T ype Group Dates [facility] [id number] 2018-Preszulema [phone] [address] PPO/POS - OUT OF STATE nt [id number] [place] [address] [facility] CHILDREN xxxxxxxxx 2019-Kirk Pr dicaid CHILDRENS [facility] HEALTH PLAN - MANAGED MEDICAID documented as of this encounter
--- OUTSIDE RECORDS SUMMARY | 2020-01-08 20:13 | XMS REPORT | Summary of Care ---
:1985 Author Organization [facility] Address [address] [place] [address] Care Team Providers Name Role Phone Pcp, Patient Does Not Have A Primary Care Provider +[id number] 0-0000 Reason for Visit Reason Comments NON-STRESS TEST ROUTINE VISIT Encounter Details Date Type Department Care Team Description 12/05/2019 Routine [facility] Women's Adum, Brenda Fitch MD [address] [place] [address] DrKim Jorge [address] [place] [address] High-risk in third trimester ( Primary Dx); Visit Healthcare- Room, [facility] Nst 37 weeks gestation of ; [place] NST (non-stress test) reacti ve; 146 [facility] Gestationa l diabetes mellitus (GDM) in third trimester controlled on oral hypoglycemic drug; Drive, [address] [place] [address] Allergies No Known Allergiesdocumented as of this encounter (statuses as of 12/08/2019) Medications Medication Sig Dispensed Refills Start Date End Date Status vit Take by 0 Active calc,iron,folic mouth. ( VITAMIN ORAL) Blood-Glucose Meter Use as 1 Kit 1 10/20/2019 Active (BLOOD GLUCOSE directed; MONITORING) Kit patient to check blood sugar QID. DX: O24.410 blood sugar Use as 100 Strip 2 10/20/2019 Active diagnostic strip directed; Patient to check blood glucose QID. DX: O24.410 Lancets Misc Use as 100 Each 2 10/20/2019 Active directed; Patient to check blood sugar QID. DX: O24.410 ferrous sulfate 325 Take 1 tablet 180 tablet 1 11/19/2019 08/2 10/2019 Active mg (65 mg iron) EC by mouth 2 tabletIndications: (two) times 24 weeks gestation daily with of , meals for 90 Anemia of mother in days. , antepartum glyBURIDE 2.5 mg Take 1 tablet 60 tablet 1 12/05/2019 Active tabletIndications: by mouth with Gestational evening meal. diabetes mellitus (GDM) in third trimester controlled on oral hypoglycemic drug glyBURIDE 5 mg Take 1 tablet 30 tablet 0 12/05/2019 Active tabletIndications: by mouth Gestational daily with diabetes mellitus breakfast. (GDM) in third trimester controlled on oral hypoglycemic drug glyBURIDE 2.5 mg Take 1 tablet 60 tablet 1 11/14/2019 12/05/19 20 Discontinued tabletIndications: by mouth 2 34 weeks gestation (two) times of , daily with Gestational meals. diabetes mellitus (GDM) in third trimester controlled on oral hypoglycemic drug documented as of this encounter (statuses as of 12/08/2019) Active Problems Problem Noted Date High-risk in [...] as of this encounter (statuses as of 12/08/2019) Resolved Problems Problem Noted Date Resolved Date 24 weeks gestation of 08/22/2019 10/01/19 20 documented as of this encounter (statuses as of 12/08/2019) Immunizations Name Administration Dates Next Due Influenza [...] Sign Reading Time Taken Comments Blood Pressure 109/69 12/05/2019 1:25 PM CDT Pulse 94 12/05/2019 1:25 PM CDT Temperature - - Respiratory Rate 18 12/05/2019 1:25 PM CDT Oxygen Saturation - - Inhaled Oxygen Concentration - - Weight 84.4 kg (186 lb) 12/05/2019 1:25 PM CDT Height 160 cm (5' 3") 12/05/2019 1:25 PM CDT Body Mass Index 32.95 12/05/2019 1:25 PM CDT documented in this encounter Progress Notes Tawanna Reeves MD - 12/05/2019 1:00 PM CDT Chief complaint: Chief Complaint Patient presents with NON-STRESS TEST ROUTINE VISIT HPI See OB summary Histories [...] file Gets together: Not on file Attends yazdanism service: Not on file Active member of [...] Patient feels safe at home denies abuse. Anabaptism preference: none Social History Substance and Sexual Activity Sexual Activity Yes Partners: Male Labs I have reviewed the patient's labs. Radiology No new radiology. Allergies Marina has No Known Allergies. Medications Marina has a current medication list which includes the following prescription(s): glyburide, glyburide, ferrous sulfate, blood sugar diagnostic, blood-glucose meter, lancets, and vit calc,iron,folic. Review of Systems BP 109/69 (BP Location: Left arm, Patient Position: Sitting, BP CUFF SIZE: Adult Medium) | Pulse 94 | Resp 18 | Ht 5' 3" (1.6 m) | Wt 186 lb (84.4 kg) | LMP 03/20/2019 | BMI 32.95 kg/m Pregravid BMI: Could not be calculated Physical Exam Assessment/Plan 37 weeks gestation of (primary encounter diagnosis) Comment: See OB summary NST (non-stress test) reactive Gestational diabetes mellitus (GDM) in third trimester controlled on oral hypoglycemic drug Plan: glyBURIDE 2.5 mg tablet, glyBURIDE 5 mg tablet High-risk in third trimester Previous section This visit did not involve counseling and coordination that comprised more than 50% of the visit time Tawanna Reeves MD 12/05/2019 3:25 PM . documented in this encounter Plan of Treatment Date Type Specialty Care Team Description 12/09/2019 Routine Visit Obstetrics & Gynecology Room, A [facility] Nst 12/12/2019 Routine Visit Obstetrics & Gynecology Room, A [facility] Nst 12/17/2019 Laboratory Only Clinical Medical Only, [...] on patient's age to complete this to [facility] documented as of this encounter Procedures Procedure Name Priority Date/Time Associated Diagnosis Comme nts NON-STRESS Routine 12/05/2019 3:38 37 weeks gestation o f Results for this TEST PM CDT procedure are in Gestational diabetes the res ults mellitus (GDM) in section. third trimester controlled on oral hypoglycemic drug documented in this encounter Results NON-STRESS TEST (12/05/2019 3:38 PM CDT) Specimen Narrative Performed At This result has an attachment that is no t available. 130's, moderate variability, accels present, no decels PACS Reactive NST Tawanna Reeves MD Performing Organization Address City/State[facility] PACS documented in this encounter Visit Diagnoses Diagnosis High-risk in third trimester - Primary 37 weeks gestation of state, incidental NST (non-stress test) reactive Other specified screening Gestational diabetes mellitus (GDM) in t hird trimester controlled on oral hypoglycemic drug Previous section Other postprocedural status documented in this encounter Insurance Payer Benefit Plan / Subscriber ID Effective Phone Address T ype Group Dates [facility] BCBS [facility] [id number] 2018-Prese [phone] [address] PPO/POS - OUT OF STATE nt [id number] [place] [address] [facility] CHILDRENS xxxxxxxxx 2019-[facility]se [facility] CHILDRENS HEALTH HEALTH PLAN - MANAGED MEDICAID documented as of this encounter
--- OUTSIDE RECORDS SUMMARY | 2020-01-08 20:14 | XMS REPORT | Summary of Care ---
:1985 Author Organization [facility] Address [address] [place] [address] Care Team Providers Name Role Phone Pcp, Patient Does Not Have A Primary Care Provider +1-000-00 0-0000 Encounter Details Date Type Department Care Team Description 12/11/2019 Orders Only [facility] Doctor Unassigned, No [address] [facility] Name [place] [id number] [address] [place] [address] Allergies No Known Allergiesdocumented as of this encounter (statuses as of 12/15/2019) Medications Medication Sig Dispensed Refills Start Date [...] as of this encounter (statuses as of 12/15/2019) Active Problems Problem Noted Date High-risk in third trimester 11/14/2019 38 weeks gestation of 10/31/2019 Gestational diabetes mellitus [...] as of this encounter (statuses as of 12/15/2019) Resolved Problems Problem Noted Date Resolved Date 24 weeks gestation of 08/22/2019 10/01/19 20 documented as of this encounter (statuses as of 12/15/2019) Immunizations Name Administration Dates Next Due Influenza [...] been in contact with No / Unsure 12/12/2019 12:57 PM CDT someone who was confirmed or suspected to have Coronavirus / COVID-19? documented as of this encounter Last Filed Vital Signs Not on filedocumented in this encounter Plan of Treatment Date Type Specialty Care Team Description 12/16/2019 Routine Visit Obstetrics & Gynecology Room, Leonie Hammer 12/16/2019 Laboratory Only Clinical Medical Only, Adc Test [...] on patient's age to complete this to [facility] documented as of this encounter Procedures Procedure Name Priority Date/Time Associated Diagnosis Comme nts PATIENT QUESTIONNAIRE Routine 12/11/2019 12:01 AM CDT documented in this encounter Results Not on filedocumented in this encounter Insurance Payer Benefit Plan / Subscriber ID Effective Phone Address T ype Group Dates [facility] [id number] 2018-Kirk [phone] [address] PPO/POS - OUT OF STATE nt [id number] [place] [address] [facility] CHILDRENS xxxxxxxxx 2019-[place] CHILDRENS [facility] HEALTH PLAN - MANAGED MEDICAID documented as of this encounter
--- OUTSIDE RECORDS SUMMARY | 2020-01-08 20:14 | XMS REPORT | Summary of Care ---
:1985 Author Organization [facility] Address [address] [place] [address] Care Team Providers Name Role Phone Pcp, Patient Does Not Have A Primary Care Provider +1-000-00 0-0000 Reason for Visit Reason Comments ROUTINE VISIT Encounter Details Date Type Department Care Team Description 12/16/2019 Routine [facility] Women's Man, Sabi Spencer am, MD [address] [place] [address] [address]. [address] [place] [address] High-risk in third trimester ( Primary Dx); Visit Healthcare- Adum, Tawanna Fitch MD [address] [place] [address] [address]. [address] [place] [address] 38 weeks gestation of ; [facility], [facility] Nst Gestational diabetes mellitus (GDM) in t hird trimester controlled on oral hypoglycemic drug; [address] [place] [address] [address] [facility] [address] [place] [address] Allergies No Known Allergiesdocumented as of this encounter (statuses as of 12/16/2019) Medications Medication Sig Dispensed Refills Start Date [...] as of this encounter (statuses as of 12/16/2019) Active Problems Problem Noted Date High-risk in third trimester 11/14/2019 38 weeks gestation of 10/31/2019 Gestational diabetes mellitus (GDM) in third trimester controlled on oral 10/17/2019 hypoglycemic drug Previous section 10/01/2019 Obesity (BMI 30-39.9) 09/05/2019 Anemia of mother in , antepartum 08/22/2019 Polyp of gallbladder 06/06/2016 Seropositive for herpes simplex 2 infection 05/31/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 serum HDL 05/31/2016 Anemia, unspecified 05/31/2016 Chronic abdominal pain 05/22/2016 Blood in stool 05/22/2016 Estimated Date of Delivery Comments Yes 12/25/2019 Based on last menstr ual period of 03/20/2019 documented as of this encounter (statuses as of 12/16/2019) Resolved Problems Problem Noted Date Resolved Date 30 weeks gestation of 10/01/2019 12/16/19 20 24 weeks gestation of 08/22/2019 10/01/19 20 documented as of this encounter (statuses as of 12/16/2019) Immunizations Name Administration Dates Next Due Influenza [...] been in contact with No / Unsure 12/16/2019 12:57 PM CDT someone who was confirmed or suspected to have Coronavirus / COVID-19? documented as of this encounter Last Filed Vital Signs Vital Sign Reading Time Taken Comments Blood Pressure 114/75 12/16/2019 1:14 PM CDT Pulse 78 12/16/2019 1:14 PM CDT Temperature 36.8 C (98.3 F) 12/16/2019 1:14 PM CDT Respiratory Rate 18 12/16/2019 1:14 PM CDT Oxygen Saturation - - Inhaled Oxygen Concentration - - Weight 86.2 kg (190 lb) 12/16/2019 1:14 PM CDT Height 165.1 cm (5' 5") 12/16/2019 1:14 PM CDT Body Mass Index 31.62 12/16/2019 1:14 PM CDT documented in this encounter Progress Notes Sabi Man MD - 12/16/2019 1:00 PM CDTSee OB Summary documented in this encounter Plan of Treatment Date Type Specialty Care Team Description 12/16/2019 Ancillary Procedure Obstetrics & Sabi Man MD Arrived Gynecology [address] [place] [address] [address]. [address] [place] [address] 01/14/2020 Routine Obstetrics & Adum, Tawanna Fitch MD Visit Gynecology [address] [place] [address] Dr. [address] [place] [address] Health Maintenance Due Date Last [...] Date/Time Associated Diagnosis Comme nts NON-STRESS Routine 12/16/2019 2:01 High-risk Results for this TEST PM CDT in third trimest er procedure are in 38 weeks gestation of the re sults section. Gestational diabetes mellitus (GDM) in third trimester controlled on oral hypoglycemic drug documented in this encounter Results NON-STRESS TEST (12/16/2019 2:01 PM CDT) Specimen Narrative Performed At This result has an attachment that is no t available. Reactive and reassuring PACS [place] quiescent Sabi Man MD 12/16/2019 2:02 PM Performing Organization Address City/State[facility] Phone Number PACS documented in this encounter Visit Diagnoses Diagnosis High-risk in third trimester - Primary 38 weeks gestation of state, incidental Gestational diabetes mellitus (GDM) in t hird trimester controlled on oral hypoglycemic drug Previous section Other postprocedural status documented in this encounter Insurance Payer Benefit Plan / Subscriber ID Effective Phone Address T ype Group Dates [facility] [id number] 2018-Kirk [phone] [address] PPO/POS - OUT OF STATE [id number] [place] [address] [facility] xxxxxxxxx 2019-[place] [facility] CHILDRENS HEALTH HEALTH PLAN - MANAGED MEDICAID documented as of this encounter
--- OUTSIDE RECORDS SUMMARY | 2020-01-08 20:14 | XMS REPORT | Summary of Care ---
:1985 Author Organization [facility] - [facility] Address [address] [place] [id number] Care Team Providers Name Role Phone Pcp, Patient Does Not Have A Primary Care Provider +[id number] Reason for Visit Reason Comments NON-STRESS TEST ROUTINE VISIT Encounter Details Date Type Department Care Team Description 12/12/2019 Routine [facility] LaurieValerie malik MD [address] [place] [address] [id number] [place], [place] [id number] 38 weeks gestation of (Primary Dx); Visit Healthcare- [facility], [facility] Nst Gestational diabetes mellitus (GDM) in t hird trimester controlled on oral hypoglycemic drug; [address] [place] [address] High-risk in third trimester; Drive, [address] Previous section; [place], [place] Anemia of mothe r in , antepartum [id number] Allergies No Known Allergiesdocumented as of this encounter (statuses as of 12/12/2019) Medications Medication Sig Dispensed Refills Start Date [...] as of this encounter (statuses as of 12/12/2019) Active Problems Problem Noted Date High-risk in [...] as of this encounter (statuses as of 12/12/2019) Resolved Problems Problem Noted Date Resolved Date 24 weeks gestation of 08/22/2019 10/01/19 20 documented as of this encounter (statuses as of 12/12/2019) Immunizations Name Administration Dates Next Due Influenza [...] Sign Reading Time Taken Comments Blood Pressure 106/69 12/12/2019 1:17 PM CDT Pulse 85 12/12/2019 1:17 PM CDT Temperature 36.8 C (98.2 F) 12/12/2019 1:17 PM CDT Respiratory Rate 18 12/12/2019 1:17 PM CDT Oxygen Saturation - - Inhaled Oxygen Concentration - - Weight 85.5 kg (188 lb 6.4 oz) 12/12/2019 1:17 PM CDT Height 165.1 cm (5' 5") 12/12/2019 1:17 PM CDT Body Mass Index 31.35 12/12/2019 1:17 PM CDT documented in this encounter Patient Instructions Patient InstructionsAlexis Aguirre - 12/12/2019 1:00 PM CDT Patient Education TOLAC (Trial of Labor After Delivery) Youve had a . Now you may wonder if you can try vaginal with your next baby. Its likely you can. TOLAC is often a success. A successful TOLAC leads to vaginal after delivery (). To find out more about TOLAC, read this health sheet. Then discuss it with your healthcare provider. To try TOLAC,you must have had a transverse incision in your uterus. Is TOLAC right for me? TOLAC may be right for you if: A low transverse (afyj-yf-urvm) incision in the uterus was used for all your births. (Beaware: Your skin incision may not match the incision in your uterus.) You have no health problems that would prevent a . The baby is in a normal head-down position. How can I benefit? When compared with a delivery, has certain benefits. These include: A shorter recovery. With , you wont have an incision in your stomach. This means you should feel better faster than the last time you gave . Fewer health risks. reduces the chances of excess bleeding, infection, and . Is TOLAC safe? For women who try , there is a risk of scar rupture (when an incision site pulls apart). Uterine rupture happens in about 1 out of 100 to 200 cases. Prepare for TOLAC As with any , this will go more smoothly if you are prepared. Make sure the hospital where you will have your baby is friendly toward TOLAC. Also be sure your support person is committed to helping you: Work closely with your healthcare team. They support you and your choice to try TOLAC. They will do all they can to promote a safe, healthy . Talk with your healthcare provider about your choices for anesthesia and other ways of controlling pain. Pick a dedicated support person. He or she can motivate you to help labor progress. Refresh your skills. Take a childbirth class. Learn ways to relax, how to breathe through pain, and how to push. Be prepared for possible changes in your delivery plan. Know what to expect With TOLAC, you are likely to be told to leave for the hospital as soon as labor begins. After you are admitted, you may have a blood test as well as an exam. An IV (intravenous) line might be started to supply fluids or medicines. Throughout labor, you and your baby will be carefully watched to make sure of your well-being. To make the most of your effort, breathe and push as coached by your healthcare provider. [employer] last reviewed this educational content on 03/25/201719997947-4055 [employer]. [address] [place] [address]. All rights reserved. This information is not intended as a substitute for professional medical care. Always follow your healthcare professional's instructions. Patient Education TOLAC (Trial of Labor After Delivery) Youve had a . Now you may wonder if you can try vaginal with your next baby. Its likely you can. TOLAC is often a success. A successful TOLAC leads to vaginal after delivery (). To find out more about TOLAC, read this health sheet. Then discuss it with your healthcare provider. To try TOLAC,you must have had a transverse incision in your uterus. Is TOLAC right for me? TOLAC may be right for you if: A low transverse (syde-hw-vbvo) incision in the uterus was used for all your births. (Beaware: Your skin incision may not match the incision in your uterus.) You have no health problems that would prevent a . The baby is in a normal head-down position. How can I benefit? When compared with a delivery, has certain benefits. These include: A shorter recovery. With , you wont have an incision in your stomach. This means you should feel better faster than the last time you gave . Fewer health risks. reduces the chances of excess bleeding, infection, and . Is TOLAC safe? For women who try , there is a risk of scar rupture (when an incision site pulls apart). Uterine rupture happens in about 1 out of 100 to 200 cases. Prepare for TOLAC As with any , this will go more smoothly if you are prepared. Make sure the hospital where you will have your baby is friendly toward TOLAC. Also be sure your support person is committed to helping you: Work closely with your healthcare team. They support you and your choice to try TOLAC. They will do all they can to promote a safe, healthy . Talk with your healthcare provider about your choices for anesthesia and other ways of controlling pain. Pick a dedicated support person. He or she can motivate you to help labor progress. Refresh your skills. Take a childbirth class. Learn ways to relax, how to breathe through pain, and how to push. Be prepared for possible changes in your delivery plan. Know what to expect With TOLAC, you are likely to be told to leave for the hospital as soon as labor begins. After you are admitted, you may have a blood test as well as an exam. An IV (intravenous) line might be started to supply fluids or medicines. Throughout labor, you and your baby will be carefully watched to make sure of your well-being. To make the most of your effort, breathe and push as coached by your healthcare provider. [employer] last reviewed this educational content on 03/25/201719996936-7158 [employer]. [address] [place] [address], [place] [address]. All rights reserved. This information is not intended as a substitute for professional medical care. Always follow your healthcare professional's instructions. Patient Education El trabajo de parto y el parto: Trabajo de parto activo Sherly el trabajo de parto activo, las contracciones se hacen ms iris y ms rtmicas que en la etapa inicial. Alcanzan hurley punto de mxima intensidad y luego disminuyen, bradley ondas. Pueden presentarse en intervalos de dos a shashank minutos y garcia aproximadamente de 45 a 60 segundos. Esta etapa del trabajo de parto puede ser muy difcil. Hans suele ser ms corta que la etapa inicial. Cuando alcanza la etapa del trabajo de parto activo, le harn ciertas pruebas para comprobar fountain jerk se encuentran usted y el beb. El piotr de hurley tero puede dilatarse entre cuatro y ocho centmetros sherly la primera parte deltrabajo de parto activo. Evaluacin fsica suya y de hurley beb Un examen le dir fountain jerk estn respondiendo usted y hurley beb a las contracciones. Le medirn la presin arterial, la temperatura y el pulso. Tambin es posible que le tomen anthony muestra de orina. Seutilizar un monitor para vigilar la frecuencia cardaca de hurley beb. En ciertos casos se uti neva anthony va IV (intravenosa) para administrarle lquidos y medicamentos. Evolucin del trabajo de parto Empezar a sentir las contracciones en todo el abdomen, en vez de sentirlas slo en la parte inferior (bradley en la etapa inicial). Si no se grant roto todava el saco amnitico, es probable que se rompa ahora. O rosita se lo rompern. Para ayudar al beb a avanzar por el canal del parto, cambie de posicin a menudo. Caminar o sentarse en anthony mecedora o un asiento reclinable puede proporcionar alivio. Es posible que le resulte difcil relajarse, an cuando est cansada. Tambin es posible que tenga menos ganas dehablar que antes. Si le van a administrar anestesia, lo harn en esta fase. Problemas especiales sherly el trabajo de parto Si el trabajo de parto no progresa correctamente o surge algn problema, es posible que necesite anthony cesrea.Hans hurley proveedor de atencin mdica puede ezra angel ciertas medidas para ayudar aevitar la cesrea: Si el piotr uterino no se est dilatando, se puede usar un medicamento llamado oxitocina para estimular el trabajo de parto. Si sherly el monitoreo se observa que el beb no est recibiendo suficiente oxgeno, puede ser til que cambie la posicin de hurley cuerpo. Tambin es posible que le den oxgeno a usted atravs de anthony mscara. Si usted tiene preeclampsia(un trastorno que causa hipertensin arterial, hinchazn y otros sntomas) es posible que le administren medicamentos por va intravenosa. Tambin es posible que lepidan que se acueste sobre el costado soren. Neurophysiologist responder a las contracciones Sherly las contracciones, trate de mantenerse relajada. Los msculos tensos consumen ms oxgeno, agotan la energa del cuerpo y aumentan el dolor. Utilice las tcnicas de respiracin y relajacin que haya aprendido. Y explique a hurley persona que est a hurley lado, apoyndola, de qu forma puede ayudarla. Si grant tenido problemas en un parto anterior, concntrese en el presente. Recuerde que no hay dos partos iguales. Aviso para la persona de apoyo Usted puede ayudar de las siguientes maneras: Pida a la madre que est dando a megan que camine o cambie de posicin al menos anthony vez por hora.[place] mejora la circulacin y ayuda al beb a bajar. Contine recordndole que respire y se relaje sherly cada contraccin. Tranquilcela. Intente evitar que se ponga ansiosa o se estrese demasiado. Cudese usted tambin. Brianna anthony breve pausa para comer o vaya al jace cuando lo necesite. Descanse cuando la madre est descansando. Ambos se beneficiarn. [id number] [employer] [place] [address]. Todos los derechos reservados. Esta informacin no pretende sustituir la atencin mdica profesional. Slo hurley mdico puede diagnosticar y tratar un problema de huber. Patient Education El parto y el nacimiento del beb: Randolph despus del nacimiento Despus de cualquier tipo de parto, el proveedor de atencin mdica vigilar de cerca hurley procesode recuperacin.Usted probablemente le belinda la chuy a hurley beb y los dos podrn comenzar hurley nueva ashvin juntos. Mientras recibe asistencia, hurley beb recibe hurley primer examen. Anthony nueva ashvin juntos El apego, o vinculacin afectiva, comienza randolph despus del nacimiento del beb. Se trata de un proceso continuo que puede durar semanas o meses. Tenga presente que es posible que no se enamore de hurley beb de inmediato. La mayora de los recin nacidos no se shoaib rich cachetones bradley los que se muestran en la televisin. Los meses que el beb pasa en el tero y el tiempo que pasa en el canal de parto pueden hacer que se young un poco arrugado y con ojos hinchados. Juli es frecuente que hurley minerva se young un tanto puntiaguda o deforme. Sin embargo, todo esto desaparecer al cabo de unos pocos rizvi. Despus del nacimiento, es posible que le pongan a hurley beb sobre el estmago o el pecho pa ra indicarle a hurley cuerpo que es hora de comenzar a producir leche. Si decide no amamantar a hurley beb, se le darn instrucciones acerca decmo detener la produccin de leche.Si va a amamantar, suproveedor de atencin mdica o enfermero podr ayudarla a presentarle el pecho al beb y comenzar a amamantar. Los bebs recin nacidos suelen estar muy alertas randolph despus de nacer. Estn listos para comenzar a alimentarse.Ya sea que amamante a hurley beb o no lo brianna, es probable que le coloquen al beb piel con piel sobre hurley pecho. [place] permitir que hurley cuerpo ayude a regular la temperatura del beb. Tambin puede iniciar el proceso de apego. Hurley recuperacin inmediata Despus del parto, la mayora de las mujeres presentan temblores y escalofros. Sin embargo, estodesaparece rpidamente. Hurley temperatura y presin arterial sern controladas hasta que se hayan estabilizado. Las toallas sanitarias absorben el flujo del endometrio. Con el fin de controlar que no est sangrando demasiado, se examinar la toalla sanitaria as bradley la firmeza del tero. Si recibi anestesia, hurley proveedor de atencin mdica la vigilar hasta que pueda sentir y mattress finisher los dedos de los pies. Si tiene dolor, le podran belinda analgsicos.Si presenta dolor perineal, se puede aliviar con anthony bolsa de hielo. El primer examen del beb El proveedor de atencin mdica examinar a hurley beb dentro de los primeros 5 minutos posterioresa hurley nacimiento, o despus de que usted haya tenido oportunidad de amamantarlo. Le evaluarn la frecuencia cardaca, la respiracin, el valente muscular, los reflejos y el color de la piel. Segn los resultados de fátima examen (actividad, pulso, gesticulacin, aspecto, respiracin), se le belinda unapuntuacin de . Tambin es posible que se le d un jace, se lo seque, se lo pese y se lo mida, y que le pongan gotas en los ojos con el fin de evitar cualquier posible infeccin. Adems, teodoro baum olocarn brazaletes de identificacin tanto en la mueca bradley en el tobillo. [id number] [employer]. [address] [place] [address]. Todos los derechos reservados. Esta informacin no pretende sustituir la atencin mdica profesional. Slo hurley mdico puede diagnosticar y tratar un problema de huber. Patient Education El parto y el nacimiento del beb: El regreso a casa Es posible que est ansiosa de regresar a casa lo antes posible. Antes de que usted y hurley beb vuelvan a casa, un proveedor de atencin mdica se asegurar de que hurley beb no presente ningn problema de huber. Tambin se cerciorar de que usted se encuentre en condiciones de huber que le permitan ocuparse de hurley beb y de s misma. Evaluacin de la huber del beb Un pediatra u otro proveedor de atencin mdica se encargar de hacerle un examen completo a hurley recin nacido. Todos los bebs son examinados para descartar problemas, bradley la posible dislocacinde la cadera o un soplo cardaco. Asimismo, es posible que se tome anthony muestra de jose antonio para descartar la presencia de ciertas enfermedades. Osvaldo vez le administren anthony vacuna contra la hepatitis B albeb. Es posible que le coloquen anthony pomada con antibiticos en los ojos del beb. El pediatra hablar con usted sobre los resultados del examen y contestar tripp preguntas. Usted podr igualmenteconcertar la primera visita mdica de hurley beb. Cuando est lista Usted estar lista para regresar a casa cuando: Pueda caminar hasta el jace y usarlo sin ayuda. Tenga anthony cantidad normal de sangrado. Pueda comer alimentos slidos y tragar los analgsicos. Tenga un alivio adecuado del dolor. No presente ninguna seal de infeccin u otro problema de huber, incluida la fiebre. Si le preocupa no estar lista para ser fawad de catarino, asegrese de comentarle estas preocupaciones asu proveedor de atencin mdica. Al llevar al beb a casa Por lo general, usted y hurley beb regresarn juntos a casa. Hurley beb estar listo para regresar a casa cuando: No muestre ninguna seal de problemas de huber. Le hayan hecho un examen de deteccin de la audicin. Le hayan hecho un examen rutinario de laboratorio. Se est alimentando rosita. Presente anthony temperatura normal. Disponga de un asiento especial para bebs aprobado por el gobierno instalado adecuadamente en el jennifer en el que regresar a casa. [id number] [employer]. [address] [place] [address]. Todos los derechos reservados. Esta informacin no pretende sustituir la atencin mdica profesional. Slo hurley mdico puede diagnosticar y tratar un problema de huber. Patient Education El parto y el nacimiento del beb: Sugerencias de apoyo Es posible que, bradley persona de apoyo, sienta yancy emocin y ansiedad acerca del parto y el nacimiento inminentes. Tambin es posible que se pregunte fountain jerk puede ayudar. Aprender acerca de fountain jerk nace un beb puede ayudarle a saber qu debe esperar. A continuacin, se le ofrecen algunas sugerencias que pueden facilitarle fátima emocionante proceso tanto a usted bradley a la madre. Sherly el comienzo del parto Asegrese de cronometrar las contracciones. Mantenga un entorno relajado. Reduzca la intensidad de las luces y evite los ruidos iris. Trate de poner msica suave o relajante. Sugirale a la madre que se acueste en anthony kumar llena de agua tibia a fin de aliviar el dolor delas contracciones. Intente distraer a la madre de las contracciones con un corto paseo o un masaje. Anmela a que descanse si est cansada. A medida que aumenta la intensidad de las contracciones, aydela a utilizar las tcnicas de respiracin especiales para el parto. Sherly el trabajo de parto Pdale a la madre que camine o cambie de posicin, por lo menos, anthony vez por hora. [place] mejora la circulacin y ayuda a que el beb descienda. Contine recordndole que respire y se relaje sherly cada contraccin. Tranquilcela. Intente evitar que se ponga ansiosa o se estrese demasiado. Cudese usted tambin. Brianna anthony breve pausa para comer o vaya al jace cuando lo necesite. Aproveche a descansar cuando la madre lo brianna. Ambos se beneficiarn. Sherly un parto vaginal Ayude a la madre a colocarse en la posicin adecuada para pujar. Sostenga hurley cuerpo mientras yane darling. Anthony posicin semisentada o semiagachada permite que la fuerza de la gravedad ayude al parto. Recurdele que debe descansar entre las contracciones. Spenser ori avisndole cuando aparezca la minerva del beb. Tenga en cuenta que es posible que le pongan anthony mscara y anthony bata para el parto, segn la poltica del hospital. Sherly un parto por cesrea Es muy probable que se le permita que se quede con la madre sherly la cesrea. Si lo hace, se le pedir que se ponga anthony mscara y anthony bata quirrgica. Recuerde que anthony cesrea es anthony operacin y que la sharonda abdominal de la madre estar cubierta y no podr verse. No toque las zonas cubiertas, ya que estn esterilizadas. Si no se le permite que est presente sherly la cesrea o si le resulta incmodo hacerlo, espere junto con los dems amigos y familiares en la lory de espera. [id number] [employer]. [address] [place] [address]. Todos los derechos reservados. Esta informacin no pretende sustituir la atencin mdica profesional. Slo hurley mdico puede diagnosticar y tratar un problema de huber. Patient Education El parto y el nacimiento del beb: Planifique hurley parto Un plan de parto es un esbozo de lo que usted desea que suceda sherly hurley trabajo de parto y el nacimiento de hurley beb. Fátima plan ayuda a tripp proveedores de atencin mdica a saber exactamente cules son tripp deseos y expectativas. Sin embargo, es importante que tenga en cuenta que el parto conllevauna serie de condiciones cambiantes y es probable que hurley plan de parto deba modificarse a ltimo momento. As que colabore con hurley proveedor de atencin mdica en la creacin de un plan que d cabida a lo inesperado. Hurley equipo de apoyo Entre las personas que pueden ayudarle sherly la planificacin y el parto se encuentran: Un proveedor de atencin mdica encargado de tripp cuidados prenatales (atencin sherly el embarazo) as bradley del nacimiento del beb.Anthony partera certificada: enfermera diplomada u otro profesional mdico capacitado para atender a la samantha embarazada y ayudar al nacimiento del beb. Anthony enfermera de parto: enfermera que asiste sherly el trabajo de parto y el nacimiento del beb. Un anestesilogo: fátima proveedor de atencin mdica puede administrarle anestesia para controlar el dolor, en zonia de que la necesite. Anthony persona de apoyo: es la persona que ayuda a brindarle contencin emocional y fsica duranteel trabajo de parto. Puede ser hurley merlin, un familiar, un amigo o anthony amiga. Un instructor de parto experimentado o green inspector: persona que le da consejos y apoyo no mdicos. Preguntas para pensar Las clases de preparacin para el nacimiento de hurley beb pueden ayudarle a pensar en qu elementosdebe incluir en hurley plan de parto. Cuando elabore hurley plan, hgase las siguientes preguntas: En qu tipo de lory voy a belinda a megan? Me gustara tener la posibilidad de caminar sherly el trabajo de parto y elegir posiciones departo? Qu tipo de medidas de comodidad quiero? Masajes, acupresin, balones de nacimiento o msica? Brook me gustara que estuviera presente para darme apoyo? Qu papel desempear(n) esta(s) persona(s)? Brook me acompaar en la lory de parto? De qu opciones dispongo para lidiar con el dolor sherly el trabajo de parto y el nacimiento del beb? Neurophysiologist influirn los medicamentos para el dolor en mi beb y mi trabajo de parto? Deseo monitoreo continuo? Qu tipos de medicamentos y lquidos IV permitir que me ayuden con el trabajo de parto? Qu tipos de procedimientos o medicamentos (en zonia de usarlos) permitir para acelerar el proceso de trabajo de parto? Qu tipo de cuidados y tiempo de hospitalizacin cubrir mi seguro mdico? Qu opciones considerara en zonia de que se produzcan circunstancias inesperadas? Si tuve que hacerme anthony cesrea en el pasado, es posible tener un parto natural ("", por tripp siglas en ingls) esta vez? Deseo contacto inmediato con mi beb despus del nacimiento sin separarnos? Neurophysiologist deseo alimentar a mi beb? Amamantamiento exclusivo o le belinda algo de frmula? Deseo demorar cualquier medicamento o vacuna hasta randolph despus del nacimiento de mi hijo? [id number] [employer]. [address] [place] [address], [place] [address]. Todos los derechos reservados. Esta informacin no pretende sustituir la atencin mdica profesional. Slo hurley mdico puede diagnosticar y tratar un problema de huber. Patient Education El parto y el nacimiento del beb: Hurley cuerpo se prepara El parto consiste en anthony serie de contracciones del tero que hacen que el piotr uterino se dilate(se melissa) y se suavice (se adelgace) para el nacimiento del beb. Hurley fecha estimada de parto le servir de gua para determinar aproximadamente cundo comenzar el parto; sin embargo, a menudo, los bebs llegan rizvi o semanas antes o despus de la fecha estimada de parto. [place] no quiere decir que el parto deba tomarla por sorpresa. Sherly las ltimas semanas del embarazo, es posible que usted o hurley proveedor de atencin mdica observe cambios que indiquen que se acerca la hora del parto. Cambios corporales Algunos cambios fsicos suelen indicar que hurley beb est por nacer, a saber: Hurley flujo vaginal puede aumentar y hacerse ms espeso. Es posible que observe un flujo de color read o turbio llamado secrecin sanguinolenta. Es posible que el tapn mucoso se expulse a lo chepe de varias semanas o todo a la vez. Sin embargo, la expulsin del tapn mucoso no significa que el parto vaya a comenzar de inmediato. Es posible que sienta contracciones de Plush Colmenares (parto falso). Estas contracciones irregulares comienzan a ablandar y adelgazar el piotr uterino. Muchas mujeres confunden estas contracciones con el parto verdadero. Suelen ser ms notorias hacia el final del da. Sentir que el beb grant descendido. Al prepararse para el parto, la minerva del beb se coloca dentro de hurley sharonda plvica. [phone] [employer]. [address] [place] [address], [place] [address]. Todos los derechos reservados. Esta informacin no pretende sustituir la atencin mdica profesional. Slo hurley mdico puede diagnosticar y tratar un problema de huber. Patient Education Video [employer] Trabajo de Parto y Alumbramiento El trabajo de parto difiere de anthony samantha a otra y de un embarazo a otro, hans los signos y sntomascomunes pueden indicarle cuando est comenzando. Las contracciones que van siendo ms iris y frecuentes son un signo certero de que realmente est en trabajo de parto. Fátima video trata las shashnak etapas del trabajo de parto y el parto, as bradley los tipos de parto. Para nicole el video: Escanee el cdigo QR Utilizando hurley dispositivo mvil, escanee el siguiente cdigo: O Vaya al sitio web: [email or web address].[employer] Ingrese el cdigo de receta: VLX [phone] [employer]. [address] [place] [address]. All rights reserved. This information is not intended as a substitute for professional medical care. Always follow your healthcare professional's instructions. Patient Education Maneje el dolor del parto sin medicamentos Hay muchas maneras de manejar el dolor sherly el trabajo de parto. A menudo, puede hacerse sin anestesia ni calmantes del dolor (analgsicos) iris. Hable con hurley proveedor de atencin mdica sobre las opciones que le interesan. Ayuda con la relajacin Algunas de estas tcnicas se aprenden en clases especiales. Hurley proveedor de atencin mdica puedeayudarle a buscar las clases adecuadas. Es posible que el hospital o centro de maternidad tenga anthony kumar o ducha que puede usar cuando comienza el trabajo de parto. Los siguientes mtodos podran serle de ayuda: Tcnicas de respiracin Un jace tibio en la kumar o ducha entre contraccin y contraccin El masaje y toque teraputico de la persona que le da clases de preparto o que la acompaa en fátima proceso Leer materiales que la alivien o la inspiren Msica relajante Hipnosis Acupuntura y acupresin Aplicacin de calor y de fro Aromaterapia Pelota de partos Tratamiento no farmacolgico Las inyecciones de agua estril administradas por hurley proveedor de atencin mdica pueden brindarle un alivio temporal del dolor cuando se inyectan en la espalda. Si necesita medicamentos Quizs haya pensado no usar medicamentos, o usar apenas lo necesario. Hans, es posible que cambie de idea sherly el parto. Puede pedir medicamentos en cualquier momento si lo necesita. [phone] [employer] [place] [address]. Todos los derechos reservados. Esta informacin no pretende sustituir la atencin mdica profesional. Slo hurley mdico puede diagnosticar y tratar un problema de huber. Patient Education El embarazo y el parto: Cosas que debe llevar con usted al hospital Es probable que sienta algo de ansiedad a medida que se acerca el nacimiento de hurley beb. [place] es normal. Para estar ms tranquila, prepare un maletn de antemano, 3 semanas antes de la fecha estimada del parto. Recuerde llevar las siguientes cosas: Objetos personales bradley un cepillo de dientes, cepillo para el pelo, blsamo labial, locin y champ. Anteojos (si los necesita). Camisn (si piensa amamantar al beb, lleve un camisn que le permita hacerlo fcilmente) Bata y zapatillas Varios pares de ropa interior Ropa cmoda para el regreso a casa Ropa para el beb cuando regrese a casa Aparato de msica y audfonos Cmara con bateras Monedas para las mquinas expendedoras Nmeros de telfono de las personas que desea llamar despus del parto Telfono celular y cargador Informacin sobre hurley seguro mdico y dems documentos necesarios para hurley estada en el hospital Anthony lista de nombres que est considerando para el beb Un asiento de seguridad para bebs orientado hacia atrs para llevar al nio a casa (esto es obligatorio por anneliese) Anote aqu cualquier otra cosa que desee recordar: [employer], [address] [place] [address]. Todos los derechos reservados. Esta informacin no pretende sustituir la atencin mdica profesional. Slo hurley mdico puede diagnosticar y tratar un problema de huber. Patient Education Cuidados especiales sherly el parto Posicin tpica para el descenso A menudo, el beb baja o desciendeentre los huesos plvicos antes del parto. Si fátima es hurley primer embarazo, esto puede ocurrir 2 a 4 semanas antes del trabajo de parto. En embarazos subsiguientes, es posible que el beb no descienda hasta el comienzo del trabajo de parto. Normalmente, el beb laura ciende con la minerva hacia abajo (la minerva angel). Si el beb no est en anthony posicin lund para el parto, o si hay algn problema con la placenta, es posible que necesite atencin especial.Tambin es posible que se necesite anthony cesrea. Situaciones que requieren atencin especial Desproporcin cefaloplvica:La minerva del beb es demasiado salvador para el tamao de la pelvis. Posicin de nalgas:El beb est colocado con las nalgas o los pies angel. Posicin transversal:El beb est en posicin horizontal con respecto a la pelvis. Abrupcin placentaria:La placenta se separa del tero. Placenta previa:La placenta bloque el piotr uterino. [phone] [employer]. [address] [place] [address]. Todos los derechos reservados. Esta informacin no pretende sustituir la atencin mdica profesional. Slo hurley mdico puede diagnosticar y tratar un problema de huber. documented in this encounter Progress Notes Tawanna Reeves MD - 12/12/2019 1:00 PM CDT Chief complaint: Chief Complaint Patient presents with NON-STRESS TEST ROUTINE VISIT HPI Marina is @ 38w1d here for JON. Has no concerns. Denies vaginal bleeding, leakage of fluid, contractions and reports movement. Histories OB History Para Term AB Living [...] file Gets together: Not on file Attends worship service: Not on file Active member of [...] Patient feels safe at home denies abuse. Amish preference: none Social History Substance and Sexual Activity Sexual Activity Yes Partners: Male Labs No new labs Radiology No new radiology. Allergies Marina has No Known Allergies. Medications Marina has a current medication list which includes the following prescription(s): glyburide, glyburide, ferrous sulfate, blood sugar diagnostic, blood-glucose meter, lancets, and vit calc,iron,folic. Review of Systems BP 106/69 (BP Location: Left arm, Patient Position: Sitting, BP CUFF SIZE: Adult Medium) | Pulse 85 | Temp 36.8 C (98.2 F) (Oral) | Resp 18 | Ht 5' 5" (1.651 m) | Wt 188 lb 6.4 oz (85.5 kg) |LMP 03/20/2019 | BMI 31.35 kg/m Pregravid BMI: Could not be calculated Physical Exam Assessment/Plan 38 weeks gestation of (primary encounter diagnosis) Comment: See OB summary Plan: NON-STRESS TEST Gestational diabetes mellitus (GDM) in third trimester controlled on oral hypoglycemic drug Plan: NON-STRESS TEST High-risk in third trimester Plan: POCT URINALYSIS W/O SPECIFIC GRAVITY Previous section Anemia of mother in , antepartum This visit did not involve counseling and coordination that comprised more than 50% of the visit time. Tawanna Reeves MD documented in this encounter Plan of Treatment Date Type Specialty Care Team Description 12/16/2019 Routine Visit Obstetrics & Gynecology Room, A [facility] Nst 12/16/2019 Laboratory Only Clinical Medical Only, Adc [...] to psychiatric documented as of this encounter Procedures Procedure Name Priority Date/Time Associated Diagnosis Comme nts NON-STRESS Routine 12/12/2019 3:51 38 weeks gestation o f Results for this TEST PM CDT procedure are in Gestational diabetes the res ults mellitus (GDM) in section. third trimester controlled on oral hypoglycemic drug POCT URINALYSIS W/O Routine 12/12/2019 High-risk R esults for this SPECIFIC GRAVITY in third trimester proce dure are in the results section. documented in this encounter Results NON-STRESS TEST (12/12/2019 3:51 PM CDT) Specimen Narrative Performed At This result has an attachment that is no t available. 130's , moderate variability, acels present, decels absent. PACS Impression: Reactive NST Tawanna Reeves MD Performing Organization Address City/State/Zipcode Phone Number PACS POCT URINALYSIS W/O SPECIFIC GRAVITY (12/12/2019) Pathologist Sig nature POCT PH U n/a [...] documented in this encounter Visit Diagnoses Diagnosis 38 weeks gestation of - Primar y state, incidental Gestational diabetes mellitus (GDM) in t hird trimester controlled on oral hypoglycemic drug High-risk in third trimester Previous section Other postprocedural status Anemia of mother in , antepartu m Anemia, antepartum documented in this encounter Insurance Payer Benefit Plan / Subscriber ID Effective Phone Address T ype Group Dates [facility] [id number] 2018-Kirk [phone] [address] PPO/POS - OUT OF STATE nt [phone] [id number] [place] [address] [facility] xxxxxxxxx 2019-Kirk [facility] CHILDRENS [facility] HEALTH PLAN - MANAGED MEDICAID documented as of this encounter
--- OUTSIDE RECORDS SUMMARY | 2020-01-08 20:14 | XMS REPORT | Summary of Care ---
:1985 Author Organization [facility] Address [address] [place] [address] Care Team Providers Name Role Phone Pcp, Patient Does Not Have A Primary Care Provider +1-000-00 0-0000 Reason for Visit Reason Comments LAB WORK Encounter Details Date Type Department Care Team Description 12/16/2019 Laboratory Only [facility] Sabi Man M D [address] [place] [address] Pre-operative Phlebotomy Only, Adc Test clearance (Primary Lab-[facility] D[facility]) [address] [place] [address] Allergies No Known Allergiesdocumented as [...] Treatment Date Type Specialty Care Team Description 01/14/2020 Routine Obstetrics & Adum, Tawanna Fitch MD Visit Gynecology [address] [place] [address] [place] [phone] Name Type Priority Associated Diagnoses Date/Ti me COVID-19 (ID NOW RAPID LAB Routine Pre-operative lindy jaqueline 12/16/2019 2:25 PM CDT TESTING) Name Type Priority Associated Diagnoses Order S chedule COVID-19 (ID NOW RAPID LAB Routine Pre-operative lindy jaqueline Expected: 12/16/2019, TESTING) Expires: 2020 Health Maintenance Due Date Last Done Comments [...] filedocumented in this encounter Visit Diagnoses Diagnosis Pre-operative clearance - Primary Preoperative examination, unspecified documented in this encounter Insurance Payer Benefit Plan / Subscriber ID Effective Phone Address T ype Group Dates [facility] [id number] 2018-Prese [phone] [address] PPO/POS - OUT OF STATE nt [id number] [place] [address] [facility] CHILDRENS xxxxxxxxx 2019-Prese [place] CHILDRENS HEALTH HEALTH PLAN - MANAGED MEDICAID documented as of this encounter
--- OUTSIDE RECORDS SUMMARY | 2020-01-08 20:15 | XMS REPORT | Summary of Care ---
:1985 Author Organization [facility] Address [address] [place] [address] Care Team Providers Name Role Phone Pcp, Patient Does Not Have A Primary Care Provider +1-000-00 0-0000 Reason for Visit Reason Comments Refill Request Encounter Details Date Type Department Care Team Description 12/15/2019 Refill [facility] Women's Adum, Tawanna Fitch MD Refill Request Healthcare- [address] [facility], [facility] [address] [place] [address] [place] [address] [phone] Allergies No Known Allergiesdocumented as of this encounter (statuses as of 12/16/2019) Medications Medication Sig Dispensed Refills Start Date End Date Status vit Take by 0 Active calc,iron,folic mouth. ( VITAMIN ORAL) Blood-Glucose Use as 1 Kit 1 10/20/2019 Activ e Meter (BLOOD directed; GLUCOSE patient to MONITORING) Kit check blood sugar QID. DX: O24.410 Lancets Misc Use as 100 Each 2 10/20/2019 Active directed; Patient to check blood sugar QID. DX: O24.410 ferrous sulfate Take 1 tablet 180 tablet 1 11/19/2019 02/17/20 20 Active 325 mg (65 mg by mouth 2 iron) EC (two) times tabletIndications: daily with 24 weeks gestation meals for 90 of , days. Anemia of mother in , antepartum glyBURIDE 2.5 mg Take 1 tablet 60 tablet 1 12/05/2019 Active tabletIndications: by mouth with Gestational evening meal. diabetes mellitus (GDM) in third trimester controlled on oral hypoglycemic drug glyBURIDE 5 mg Take 1 tablet 30 tablet 0 12/05/2019 Active tabletIndications: by mouth daily Gestational with diabetes mellitus breakfast. (GDM) in third trimester controlled on oral hypoglycemic drug blood sugar USE 100 Strip 2 12/16/2019 Active diagnostic DIRECTED TO (TRUETRACK TEST) CHECK BLOOD strip SUGAR 4 TIMES A DAY blood sugar Use as 100 Strip 2 10/20/2019 12/16/2019 Discon tinued diagnostic strip directed; Patient to check blood glucose QID. DX: O24.410 documented as of this [...] & Adum, Tawanna Fitch MD Visit Gynecology [address] [place] [address] [place] [address] Health Maintenance Due Date Last Done Comments VARICELLA VACCINES (1 of 2 - 01/02/1988 2-dose childhood series) Depression Screening 1999 INFLUENZA VACCINE (Season 02/24/2020 05/22/2016 Ended) PAP SMEAR 08/22/2022 08/22/2019, 05/22/2016 DTaP,Tdap,and Td Vaccines (2 09/30/2029 10/01/2019 - Td) PNEUMOCOCCAL 0-64 YEARS Aged Out No longe r eligible based COMBINED SERIES on patient's age to complete this to [facility] documented as of this encounter Results Not on filedocumented in this encounter Insurance Payer Benefit Plan / Subscriber ID Effective Phone Address T ype Group Dates [facility] [id number] 2018-Kirk [phone] [address] PPO/POS - OUT OF STATE nt [phone] [id number] [place] [address] [facility] xxxxxxxxx 2019-Kirk [place] dicaid CHILDRENS HEALTH HEALTH PLAN - MANAGED MEDICAID documented as of this encounter
--- OUTSIDE RECORDS SUMMARY | 2020-01-08 20:15 | XMS REPORT | Summary of Care ---
:1985 Author Organization [facility] Address [address] [place] [address] Care Team Providers Name Role Phone Pcp, Patient Does Not Have A Primary Care Provider +1-000-00 0-0000 Reason for Visit Reason Comments Lab Results Encounter Details Date Type Department Care Team Description 12/16/2019 Telephone [facility] Phlebotomy Pcp, Patient Does Not Lab Results [facility] Have A [address] [place] [address] [address] [place] [address] [place] [address] Allergies No Known Allergiesdocumented as of this encounter (statuses as of 12/16/2019) Medications Medication Sig Dispensed Refills Start Date End Date Status vit Take by mouth. 0 A ctive calc,iron,folic ( VITAMIN ORAL) Blood-Glucose Meter Use as directed; 1 Kit 1 10/20/2019 Active (BLOOD GLUCOSE patient to check MONITORING) Kit blood sugar QID. DX: O24.410 Lancets Misc [...] on oral hypoglycemic drug blood sugar USE DIRECTED 100 Strip 2 12/16/2019 A ctive diagnostic (TRUETRACK TO CHECK BLOOD TEST) strip SUGAR 4 TIMES A DAY documented as of this encounter (statuses as [...] & Adum, Tawanna Fitch MD Visit Gynecology [address] [place] [address] [place] [address] Health Maintenance Due Date Last Done Comments VARICELLA VACCINES (1 of 2 - 01/02/1988 2-dose childhood series) Depression Screening 1999 INFLUENZA VACCINE (Season 02/24/2020 05/22/2016 Ended) PAP SMEAR 08/22/2022 08/22/2019, 05/22/2016 DTaP,Tdap,and Td Vaccines (2 09/30/2029 10/01/2019 - Td) PNEUMOCOCCAL 0-64 YEARS Aged Out No longe r eligible based COMBINED SERIES on patient's age to complete this to [facility] documented as of this encounter Results Not on filedocumented in this encounter Insurance Payer Benefit Plan / Subscriber ID Effective Phone Address T ype Group Dates [facility] [id number] 2018-Kirk [phone] [address] PPO/POS - OUT OF STATE nt [phone] [id number] [place] [address] [facility] CHILDRENS xxxxxxxxx 2019-Kirk [facility] CHILDRENS HEALTH HEALTH PLAN - MANAGED MEDICAID documented as of this encounter
--- OUTSIDE RECORDS SUMMARY | 2020-01-08 20:15 | XMS REPORT | Summary of Care ---
:1985 Author Organization [facility] Address [address] [place] [address] Care Team Providers Name Role Phone Pcp, Patient Does Not Have A Primary Care Provider +1-000-00 0-0000 Reason for Visit Reason Comments Lab Results Results Encounter Details Date Type Department Care Team Description 12/16/2019 Telephone [facility] Phlebotomy Pcp, Patient Does Lab Results; Results [facility] Not Have A [address] [place] [address] [address] [place] [address] [place] [address] Allergies No Known Allergiesdocumented as of this encounter (statuses as of 12/17/2019) Medications Medication Sig Dispensed Refills Start Date [...] as of this encounter (statuses as of 12/17/2019) Active Problems Problem Noted Date High-risk in [...] as of this encounter (statuses as of 12/17/2019) Resolved Problems Problem Noted Date Resolved Date 30 weeks gestation of 10/01/2019 12/16/19 20 24 weeks gestation of 08/22/2019 10/01/19 20 documented as of this encounter (statuses as of 12/17/2019) Immunizations Name Administration Dates Next Due Influenza [...] Adum, Tawanna Fitch MD Visit Gynecology [address] [place] [address] [place] [phone] Health Maintenance Due Date Last Done Comments [...] T ype Group Dates [facility] [id number] 2018-Kirk [phone] [address] PPO/POS - OUT OF STATE nt [id number] [place] [address] [facility] CHILDRENS xxxxxxxxx 2019-Kirk [facility] CHILDRENS HEALTH HEALTH PLAN - MANAGED MEDICAID documented as of this encounter
--- OUTSIDE RECORDS SUMMARY | 2020-01-08 20:16 | XMS REPORT | Summary of Care ---
:1985 Author Organization [facility] Address [address] [place] [address] Care Team Providers Name Role Phone Pcp, Patient Does Not Have A Primary Care Provider +1-000-00 0-0000 Reason for Visit Reason Comments Refill Request Encounter Details Date Type Department Care Team Description 12/27/2019 Refill [facility] Women's AdumTawanna MD Refill Request Healthcare- [address] 146 [facility], [facility] [address] [place] [address] [place] [address] [phone] Allergies No Known Allergiesdocumented as of this encounter (statuses as of 12/29/2019) Medications Medication Sig Dispensed Refills Start Date End Date Status vitamin w/FA Take 1 tablet by 100 tablet 3 12/19/2019 Active tabletIndications: mouth daily. S/P docusate calcium 240 Take 1 capsule by 60 capsule 1 12/19/2019 Active mg mouth once daily capsuleIndications: as needed for S/P Constipation. ferrous sulfate 325 Take 1 tablet by 90 tablet 3 12/19/2019 Active mg (65 mg iron) mouth 3 (three) tabletIndications: times daily with S/P meals. ibuprofen 600 mg Take 1 tablet by 60 tablet 1 12/19/2019 Active tabletIndications: mouth every 6 S/P (six) hours as needed (Pain). Take with food or milk. foLIC acid 1 mg Take 1 tablet by 30 tablet 3 12/19/2019 Active tabletIndications: mouth daily. S/P ascorbic acid, Take 1 tablet by 30 tablet 3 12/19/2019 Active vitamin C, 500 mg mouth daily. tabletIndications: S/P documented as of this encounter (statuses as of 12/29/2019) Active Problems Problem Noted Date High-risk in third trimester 11/14/2019 Obesity (BMI 30-39.9) 09/05/2019 Polyp of gallbladder 06/06/2016 Seropositive for herpes simplex 2 infection 05/31/2016 Low serum HDL 05/31/2016 Anemia, unspecified 05/31/2016 Chronic abdominal pain 05/22/2016 Blood in stool 05/22/2016 documented as of this encounter (statuses as of 12/29/2019) Resolved Problems Problem Noted Date Resolved Date 39 weeks gestation of 10/31/2019 12/26/19 20 Gestational diabetes mellitus (GDM) in third trimester 10/1612/26/2019 controlled on oral hypoglycemic drug Previous section 10/01/2019 12/26/2019 30 weeks gestation of 10/01/2019 12/16/19 20 Anemia of mother in , antepartum 08/22/2019 12/26/2019 24 weeks gestation of 08/22/2019 10/01/19 20 documented as of this encounter (statuses as of 12/29/2019) Immunizations Name Administration Dates Next Due Influenza Virus Vaccine Quad IM Multi-dose 6+ MO 05/22/2016 TDAP (ADACEL) VACCINE 10/01/2019 documented as of this encounter Social History Tobacco Use Types Packs/Day Years Used Date Never Smoker Smokeless Tobacco: Never Used Alcohol Use Drinks/Week oz/Week Comments No 0 Standard drinks or equivalent 0.0 Sex Assigned at Date Recorded Not on file Job Start Date Occupation Industry Not on file Not on file Not on file Travel History Travel Start Travel End No recent travel history available. COVID-19 Exposure Response Date Recorded In the last month, have you been in contact with No / Unsure 12/25/2019 9:43 AM CDT someone who was confirmed or suspected to have Coronavirus / COVID-19? documented as of this encounter Last Filed Vital Signs Not on filedocumented in this encounter Plan of Treatment Date Type Specialty Care Team Description 01/14/2020 Routine Obstetrics & Adum, Tawanna Fitch MD Visit Gynecology [address] [place] [address] [place] [phone] Health Maintenance Due Date Last Done Comments VARICELLA VACCINES (1 of 2 - 01/02/1988 2-dose childhood series) Depression Screening 1999 INFLUENZA VACCINE (#1) 2020 05/22/2016 PAP SMEAR 08/22/2022 08/22/2019, 05/22/2016 DTaP,Tdap,and Td Vaccines (2 09/30/2029 10/01/2019 - Td) PNEUMOCOCCAL 0-64 YEARS Aged Out No longe r eligible based COMBINED SERIES on patient's age to complete this to [facility] documented as of this encounter Results Not on filedocumented in this encounter Visit Diagnoses Diagnosis Gestational diabetes mellitus (GDM) in t hird trimester controlled on oral hypoglycemic drug documented in this encounter Insurance Payer Benefit Plan / Subscriber ID Effective Phone Address T ype Group Dates [facility] [id number] 2018-Preszulema [phone] [address] PPO/POS - OUT OF STATE nt [phone] [id number] [place] [address] [employer] xxxxxxxxx 2019-Prese [address] Medic aid HEALTH CHOICE HEALTH CHOICE nt [id number] - MANAGED MEDICAID [place] [id number] [facility] CHILDRENS xxxxxxxxx 2019-Prese [place] dicaid CHILDRENS HEALTH nt HEALTH PLAN - MANAGED MEDICAID documented as of this encounter
--- OUTSIDE RECORDS SUMMARY | 2020-01-08 20:16 | XMS REPORT | Summary of Care ---
:[address] [facility] - [facility] Address [address] [place] [address] Care Team Providers Name Role Phone Pcp, Patient Does Not Have A Primary Care Provider +[id number] Reason for Referral (Routine) Status Reason Specialty Diagnoses / Referred By Referred To Procedures Contact Contact New Request OB Satellites Diagnoses S/P Roseanna Alva, Procedures DISCHARGE FOLLOW-UP: [facility] [address] [place] [id number] [place] [id number] Reason for Visit Auth/Cert Status Reason Specialty Diagnoses / Referred By Contact Refe rred To Contact Procedures Obstetrics Diagnoses 39 weeks gestation [address] [address] Phone: Fax: Encounter Details Date Type Department Care Team Description 12/18/2019 - Hospital Encounter Mother Baby Unit Constance Godinez diabetes 12/20/2019 (J7C) MD Rosalba mellitus (GDM) in [address] [place] [address] BVD third trimest er [place] [id number] controlled on oral [place], [place] hypoglycemic drug [id number] Allergies No Known Allergiesdocumented as of this encounter (statuses as of 12/20/2019) Medications Medication Sig Dispensed Refills Start Date End Date Status vitamin Take 1 tablet by 100 tablet 3 12/19/2019 Active w/FA mouth daily. tabletIndications : S/P docusate calcium Take 1 capsule by 60 capsule 1 12/19/2019 Active 240 mg mouth once daily capsuleIndication as needed for s: S/P Constipation. ferrous sulfate Take 1 tablet by 90 tablet 3 12/19/2019 Active 325 mg (65 mg mouth 3 (three) iron) times daily with tabletIndications meals. : S/P ibuprofen 600 mg Take 1 tablet by 60 tablet 1 12/19/2019 Active tabletIndications mouth every 6 : S/P (six) hours as needed (Pain). Take with food or milk. foLIC acid 1 mg Take 1 tablet by 30 tablet 3 12/19/2019 Active tabletIndications mouth daily. : S/P ascorbic acid, Take 1 tablet by 30 tablet 3 12/19/2019 Active vitamin C, 500 mg mouth daily. tabletIndications : S/P HYDROcodone-aceta Take 1 tablet by 10 tablet 0 12/19/2019 07/0 09/11 Active minophen 5-325 mg mouth every 6 20 tabletIndications (six) hours as : S/P needed (Pain scale above 4) for up to 7 days. Do not exceed 3 grams of acetaminophen in 24 hours. vit Take by mouth. 0 12/19/19 D iscontinued calc,iron,folic 20 ( VITAMIN ORAL) Blood-Glucose Use as directed; 1 Kit 1 10/20/2019 12/19/19 Discontinued Meter (BLOOD patient to check 20 GLUCOSE blood sugar QID. MONITORING) Kit DX: O24.410 Lancets Misc Use as directed; 100 Each 2 10/20/2019 12/19/19 Discontinued Patient to check 20 blood sugar QID. DX: O24.410 ferrous sulfate Take 1 tablet by 180 tablet 1 11/19/201912/18 Discontinued 325 mg (65 mg mouth 2 (two) 20 iron) EC times daily with tabletIndications meals for 90 days. : 24 weeks gestation of , Anemia of mother in , antepartum glyBURIDE 2.5 mg Take 1 tablet by 60 tablet 1 12/05/201912/18 Discontinued tabletIndications mouth with evening 20 : Gestational meal. diabetes mellitus (GDM) in third trimester controlled on oral hypoglycemic drug glyBURIDE 5 mg Take 1 tablet by 30 tablet 0 12/05/2019 0 Discontinued tabletIndications mouth daily with 20 : Gestational breakfast. diabetes mellitus (GDM) in third trimester controlled on oral hypoglycemic drug blood sugar USE DIRECTED TO 100 Strip 2 12/16/2019 12/19/19 Discontinued diagnostic CHECK BLOOD SUGAR 20 (TRUETRACK TEST) 4 TIMES A DAY strip documented as of this encounter (statuses as of 12/20/2019) Active Problems Problem Noted Date High-risk in third trimester 11/14/2019 39 weeks gestation of 10/31/2019 Gestational diabetes mellitus [...] as of this encounter (statuses as of 12/20/2019) Resolved Problems Problem Noted Date Resolved Date 30 weeks gestation of 10/01/2019 12/16/19 20 24 weeks gestation of 08/22/2019 10/01/19 20 documented as of this encounter (statuses as of 12/20/2019) Immunizations Name Administration Dates Next Due Influenza [...] been in contact with No / Unsure 12/18/2019 7:43 AM CDT someone who was confirmed or suspected to have Coronavirus / COVID-19? documented as of this encounter Last Filed Vital Signs Vital Sign Reading Time Taken Comments Blood Pressure 105/64 12/20/2019 7:20 AM CDT Pulse 74 12/20/2019 7:20 AM CDT Temperature 36.2 C (97.2 F) 12/20/2019 7:20 AM CDT Respiratory Rate 17 12/20/2019 7:20 AM CDT Oxygen Saturation 97% 12/20/2019 7:20 AM CDT Inhaled Oxygen Concentration - - Weight - - Height - - Body Mass Index - - documented in this encounter Discharge Instructions InstructionsSchRadha collazo RN - 12/20/2019Multidisciplinary Discharge Instructions (may include diet, dressing changes, activity limits, written materials given to patient: DIET: Eat a well balanced diet; drink 6-8 glasses of fluids daily; eat fruits and green, leafy vegetables. DAILY ACTIVITIES: 1. As much as you feel able to do. Rest when you are tired. 2. Limitations: Specify; No heavy lifting other than your baby for 4 weeks if you had surgery. TREATMENT AT HOME 1. Use a well-fitting bra to prevent breast engorgement 2. Resume intercourse as instructed by your physician. 3. Do not use douches or tampons for four weeks. 4. To help prevent urinary tract infection; after each urination and bowel movement, wipe and dry from front to back and change tony pad. 5. Follow discharge instructions regarding baby care. 6. Follow family planning instructions. IMMEDIATE TREATMENT - Call Clinic or Your Physician 1. Increase in pain and tenderness of uterus. 2. Increased vaginal bleeding (bright red blood which soaks 2 pads in 1 hour or pass large clots). 3. Foul smelling vaginal discharge. 4. Burning in the tube that empties the urine from the bladder. 5. Painful breast engorgement or cracked nipples. 6. Pain, discharges, or gaping incision. 7. Temperature greater than 38.0C or 100.4F 8. Pain and tenderness of calf or thigh muscles. 9. No bowel movements in 4 days. For Problems or Questions Call: OB Clinic Family Planning [phone] or Emergency: Go to the closest emergency room or call 911 AttachmentsThe following attachments cannot be sent through Care Everywhere. Depression, Understanding (Marshallese), After (Marshallese) documented in this encounter Progress Notes Riana Gordon WHCNP - 12/20/2019 8:40 AM CDT 12/20/19 DIRECTOR OF CONTENT AND PROGRAMMING Note Subjective: No complaints. Her pain is well controlled on oral pain medications. She is tolerating a regular diet. She has passed flatus. She is ambulating without difficulty. Lochia is Scant. She is urinating without tang. Patient denies chest pain, SOB, n/v, headache, RUQ pain, vision changes, dizz iness. Objective: VITALS: Patient Vitals for the past 24 hrs: BP Temp Temp src Pulse Resp SpO2 12/19/19 1947 108/67 71 18 99 % 12/19/19 1156 98/60 36.8 C (98.3 F) Oral 74 17 98 % 12/19/19 0808 104/61 36.6 C (97.8 F) Oral 63 17 97 % 12/19/19 0359 103/64 36.7 C (98.1 F) Oral 63 18 98 % 12/19/19 0002 107/61 36.8 C (98.3 F) Oral 65 18 98 % 12/18/19 2135 99/61 36.8 C (98.2 F) Oral 66 18 98 % I/O: Intake/Output Summary (Last 24 hours) at 12/19/20192119 Last data filed at 12/19/2019 1400 Gross per 24 hour Intake Output 2280 ml Net -2280 ml PE: General: patient alert and in no acute distress Lungs: clear to auscultation bilaterally Cardiology: regular rate and rhythm, no murmur Abdomen: normal tenderness to palpation, soft, bowel sounds present. Fundus is firm and at umbilicus Incision: Clean, dry, and intact, no erythema or induration Extremities: no clubbing, cyanosis, or edema : deferred LABS: WBC (10*3/L) Date Value 12/19/2019 9.39 12/18/2019 8.55 HGB (g/dL) Date Value 12/19/2019 9.3 (L) 12/18/2019 10.8 (L) HCT (%) Date Value 12/19/2019 28.9 (L) 12/18/2019 33.5 (L) PLT (10*3/L) Date Value 12/19/2019 121 (L) 12/18/2019 150 (L) Assessment: Marina Maxwell is a 34 year [id number]/p repeatLTCS at 39w0d on 12/18/2019at 12:44 PMfor ERCS,complicated bybleeding requiring left uterine artery ligation. Patient is recovering well: hemodynamically stable, good UOP, pain well-controlled, vitals within normal limits. Plan: Postoperative Review: - Admitted for:TOLAC - Surgical procedure:Repeat Lower uterine transverse sectionwith no extension - Skin incision:pfannenstiel - Closure:sutures - Estimated blood loss:900mL - Intraoperative Complications:adhesions - Clinical trials:TXA and suture trial Anemia - EBL 900ml - Preop H/H:10.8/33.5 - Postop H/H:9.3/28.9 - asymptomatic, VSS - discharge with iron/folate/vit c A2DM - Based on 1h 152, 3h (91, 213,190, 113) - regimenglyburide 5 mg qAM,2.5 mg qPM, reports compliance - FSBG on admission:71 - will need 2h GTT at 6w Antepartum Course Reviewed - seronegative, Runk, VZVunk,O positive/IATnegative, GBSnegative, PapNILM -[facility] Postoperative care: - Diet: Advance as tolerated - Fluid: Encourage oral intake - Activity: Encourage ambulation and incentive spirometry - Pain: Loomis and Ibuprofen - DVT prophylaxis: SCDs and TEDs when not ambulating Discharge Planning - D/C home today - Contraception:nexplanon - Vaccines:VZV and Rubella titers pending - Follow up in 5-7 [facility] - Follow Up[facility] Baby's Status - APGARs8,9 - Weight: 3200 g - Location:with mother - Gender: female ANT Anyi Hernandez MD - 12/20/2019 6:25 AM CDT POST-OPERATIVE PROGRESS NOTE 12/20/2019 6:25 AM Subjective: Overnight patient had no complaints. Her pain is well controlled on oral pain medications. She is tolerating a regular diet. She has passed flatus. She is ambulating without difficulty. Lochia is Scant. She is urinating without tang. Patient denies chest pain, SOB, n/v, headache, RUQ pain, vision changes, dizziness. Objective: VITALS: Patient Vitals for the past 24 hrs: BP Temp Temp src Pulse Resp SpO2 12/19/19 1947 108/67 71 18 99 % 12/19/19 1156 98/60 36.8 C (98.3 F) Oral 74 17 98 % 12/19/19 0808 104/61 36.6 C (97.8 F) Oral 63 17 97 % 12/19/19 0359 103/64 36.7 C (98.1 F) Oral 63 18 98 % 12/19/19 0002 107/61 36.8 C (98.3 F) Oral 65 18 98 % 12/18/19 2135 99/61 36.8 C (98.2 F) Oral 66 18 98 % I/O: Intake/Output Summary (Last 24 hours) at 12/19/20192119 Last data filed at 12/19/2019 1400 Gross per 24 hour Intake Output 2280 ml Net -2280 ml PE: General: patient alert and in no acute distress Lungs: clear to auscultation bilaterally Cardiology: regular rate and rhythm, no murmur Abdomen: normal tenderness to palpation, soft, bowel sounds present. Fundus is firm and at umbilicus Incision: Clean, dry, and intact, no erythema or induration Extremities: no clubbing, cyanosis, or edema : deferred MEDS: Current Facility-Administered Medications Medication Dose Route Frequency Last Rate Last Dose bisacodyL (DULCOLAX) suppository 10 mg 10 mg Rectal QDAILYPRN diphenhydrAMINE (BENADRYL) tablet 25 mg 25 mg Oral Q6HPRN diphenhydrAMINE-0.9 % sod.chlr (BENADRYL) 25 mg/50 mL piggyback 25 mg 25 mg IV Piggyback Q6HPRN docusate calcium (SURFAK) capsule 240 mg 240 mg Oral QDAILYPRN 240 mg at 12/19/19 0917 HYDROcodone-acetaminophen (NORCO 5) 5-325 mg tablet 1 tablet 1 tablet Oral Q6HPRN HYDROcodone-acetaminophen (NORCO 5) 5-325 mg tablet 2 tablet 2 tablet Oral Q6HPRN 2 tablet at12/19/19 1646 ibuprofen (IBU) tablet 600 mg 600 mg Oral Q6HPRN 600 mg at 12/19/191999 magnesium hydroxide (MILK OF MAGNESIA) 400 mg/5 mL suspension 30 mL 30 mL Oral QDAILYPRN 30 mL at 12/19/19 0917 ondansetron (ZOFRAN (PF)) injection 4 mg 4 mg Slow IV Push Q8HPRN rho(D) immune globulin (RHOGAM) syringe 300 mcg 300 mcg Intramuscular ONCE simethicone (GAS RELIEF (SIMETHICONE)) chewable tablet 160 mg 160 mg Oral PC+HSPRN 160 mg at 12/19/191999 LABS: WBC (10*3/L) Date Value 12/19/2019 9.39 12/18/2019 8.55 HGB (g/dL) Date Value 12/19/2019 9.3 (L) 12/18/2019 10.8 (L) HCT (%) Date Value 12/19/2019 28.9 (L) 12/18/2019 33.5 (L) PLT (10*3/L) Date Value 12/19/2019 121 (L) 12/18/2019 150 (L) Assessment: Marina Maxwell is a 34 year old POD#2 s/p repeat LTCS at 39w0d on 12/18/2019 at 12:44 PM for ERCS, complicated by bleeding requiring left uterine artery ligation. Patient is recoveringwell: hemodynamically stable, good UOP, pain well-controlled, vitals within normal limits. Plan: Postoperative Review: - Admitted for: TOLAC - Surgical procedure: Repeat Lower uterine transverse section with no extension - Skin incision: pfannenstiel - Closure: sutures - Estimated blood loss: 900 mL - Intraoperative Complications: adhesions - Clinical trials: TXA and suture trial Anemia - EBL 900ml - Preop H/H: 10.8/33.5 - Postop H/H: 9.3/28.9 - asymptomatic, VSS - discharge with iron/folate/vit c A2DM - Based on 1h 152, 3h (91, 213,190, 113) - regimenglyburide 5 mg qAM,2.5 mg qPM, reports compliance - FSBG on admission:71 - will need 2h GTT at 6w Antepartum Course Reviewed - seronegative, Runk, VZVunk,O positive/IATnegative, GBSnegative, PapNILM -[facility] Postoperative care: - Diet: Advance as tolerated - Fluid: Encourage oral intake - Activity: Encourage ambulation and incentive spirometry - Pain: [place] and Ibuprofen - DVT prophylaxis: SCDs and TEDs when not ambulating Discharge Planning - Contraception: nexplanon - Vaccines: VZV and Rubella titers pending - Follow up in 5-7 days for incision check and/or staple removal at [facility] - Follow Up: follow-up in 3-6 weeks at [facility] Baby's Status - APGARs 8 , 9 - Weight: 3200 g - Location: with mother - Gender: female DISPO: POD#2. Needs to meet the following milestones prior to discharge: none. Anticipate discharge today. Anyi Hernandez MD Hermila Meade MD - 12/18/2019 9:33 AM CDTCOUNSELING FOR TRIAL OF LABOR 12/18/2019 9:33 AM I counselled the patient regading the risks and benefits of vaginal after cesarian delivery (trial of labor after cesarian delivery). Benefits of successful include shorter hospital stay, less blood loss, fewer transfusions, fewer infections, and fewer thromboembolic events than repeat . Risks of trial of labor include major maternal complications, such as uterine rupture (less than 1% for previous LTCS or 4-9% for previous classical or t- shaped incision) that may lead to emergent , hysterectomy, and operative surgery, as well as increased maternal infection and increased need of transfusion. Uterine rupture may lead to maternal , injury, severe neurological damage, or even . The risk of uterine rupture doubles with use of Pitocin to between 1-2%. after failed trial of labor carries more risk than planned delivery. Patient was also counseled that her chance of successful based on her personal history is 26%. All questions answered at bedside. Patient voiced her understanding of the risks and benefits of and in a sound mind wished to proceed with repeat CS Hermila Abad MD documented in this encounter Plan of Treatment Date Type Specialty Care Team Description 12/26/2019 Nurse Visit Obstetrics & Nurse, [facility] 01/09/2020 Office Visit Obstetrics & Adum, Tawanna Fitch MD Gynecology [address] [place] [address] [address] [place] [address] 01/14/2020 Routine Obstetrics & Adum, Tawanna Fitch MD Visit Gynecology [address] [place] [address] [address]. [address] [place] [address] Health Maintenance Due Date Last [...] Associated Comments Diagnosis CBC WITH DIFFERENTIAL Routine 12/19/2019 3:29 Re sults for this AM CDT procedure are i n the results section. CBC WITH DIFFERENTIAL Routine 12/19/2019 3:29 Re sults for this AM CDT procedure are i n the results section. VENOUS CORD GAS OPHELIA 12/18/2019 12:48 Results for this PM CDT procedure are i n the results section. ARTERIAL CORD GAS OPHELIA 12/18/2019 12:48 Result s for this PM CDT procedure are i n the results section. SECTION 12/18/2019 11:53 same AM CDT GALV ONLY - SYPHILIS OPHELIA 12/18/2019 9:54 Res ults for this IGG/IGM AM CDT procedure are i n the results section. HIV 1/2 AG-AB WITH OPHELIA 12/18/2019 9:54 Resul ts for this REFLEX AM CDT procedure are i n the results section. CBC WITH DIFFERENTIAL OPHELIA 12/18/2019 9:54 Re sults for this AM CDT procedure are i n the results section. RHO (D) IMMUNE Routine 12/18/2019 9:54 Results f or this GLOBULIN AM CDT procedure are i n the results section. HB ABO GROUPING OPHELIA 12/18/2019 9:54 Results for this AM CDT procedure are i n the results section. HEPATITIS B SURFACE OPHELIA 12/18/2019 9:54 Resu lts for this ANTIGEN AM CDT procedure are i n the results section. CBC WITH DIFFERENTIAL OPHELIA 12/18/2019 9:54 Re sults for this AM CDT procedure are i n the results section. POCT GLUCOSE Routine 12/18/2019 7:07 Results for this (AUTOMATED) AM CDT procedure are i n the results section. COVID-19 (ID NOW STAT 12/18/2019 5:42 Results for this RAPID TESTING) AM CDT procedure are in the results section. documented in this encounter Results CBC WITH DIFFERENTIAL (12/19/2019 3:29 AM CDT) Pathologist Sig nature WBC 9.39 4.30 - 11.10 [facility] 10*3/L SERVICES RBC 2.91 (L) 3.93 - 5.25 [facility] 10*6/L SERVICES HGB 9.3 (L) 11.6 - 15.0 [facility] g/dL SERVICES HCT 28.9 (L) 35.7 - 45.2 % [facility] MCV 99.3 (H) 80.6 - 95.5 fL [facility] MCH 32.0 25.9 - 32.8 pg [facility] MCHC 32.2 31.6 - 35.1 [facility] g/dL SERVICES RDW-SD 48.7 39.0 - 49.9 fL [facility] RDW-CV 13.5 12.0 - 15.5 % [facility] PLT 121 (L) 166 - 358 [facility] 10*3/L SERVICES MPV 12.5 9.5 - 12.9 fL [facility] NRBC/100 WBC 0.0 0.0 - 10.0 /100 [facility] WBCs SERVICES NRBC x10^3 <0.01 10*3/L [facility] GRAN MAT (NEUT) % 77.0 % [facility] IMM GRAN % 0.50 % [facility] LYMPH % 12.4 % [facility] MONO % 8.5 % [facility] EOS % 1.5 % [facility] BASO % 0.1 % [facility] GRAN MAT x10^3(ANC) 7.23 (H) 1.88 - 7.09 [facility] 10*3/uL SERVICES IMM GRAN x10^3 0.05 0.00 - 0.06 [facility] 10*3/uL SERVICES LYMPH x10^3 1.16 (L) 1.32 - 3.29 [facility] 10*3/uL SERVICES MONO x10^3 0.80 0.33 - 0.92 [facility] 10*3/uL SERVICES EOS x10^3 0.14 0.03 - 0.39 [facility] 10*3/uL SERVICES BASO x10^3 <0.03 0.01 - 0.07 [facility] 10*3/uL SERVICES Specimen Blood - HAND, LEFT Performing Organization Address City/[facility]/Zipcode Phone Number [facility] CLIA: [id number], [address] [place] [phone] [facility] ARTERIAL CORD GAS (12/18/2019 12:48 PM CDT) Pathologist Sig nature BASE EXCESS, CORD -5.0 mEq/L [facility] AC PH, CORD (BEAKER) 7.24 7.18 - 7.38 [facility] PC02, CORD 56 32 - 66 mmHg [facility] PO2, CORD 14 10 - [address] [facility] BICARBONATE, CORD 23 17 - 27 mEq/L [facility] Specimen Blood - CORD Performing Organization Address City/State/Zipcode Phone Number [facility] CLIA: [id number], [address] [place] [address] [facility] VENOUS CORD GAS (12/18/2019 12:48 PM CDT) Pathologist Sig nature VENOUS BASE EXCESS, -5.3 mEq/L [facility] CORD SERVICES VENOUS PH, CORD 7.29 7.25 - 7.45 [facility] VENOUS PC02, CORD 45 27 - 49 mmHg [facility] VENOUS PO2, CORD 22 17 - 41 mmHg [facility] VENOUS BICARBONATE, 21 12 - 29 mEq/L [facility] CORD SERVICES Specimen Blood - CORD Performing Organization Address City/State/Zipcode Phone Number [facility] CLIA: [id number], [address] [place], [place] [address] [facility] RHO (D) IMMUNE GLOBULIN (12/18/2019 9:54 AM CDT) Pathologist Sig nature RHIG CANDIDATE? No- see comment LAB Comment: Patient is not a candidate for RhIg- Patient is Rh Pos itive. Performed at [facility] Laboratory Services - [facility] [address] [facility], [place], [place] [address] Toll Free: [phone] CLIA No. [id number] Specimen Blood - VENOUS Performing Organization Address City/State/Zipcode Phone Number D LAB CBC WITH DIFFERENTIAL (12/18/2019 9:54 AM CDT) Pathologist Sig nature WBC 8.55 4.30 - 11.[address] [facility] 10*3/L SERVICES RBC 3.42 (L) 3.93 - 5.[address] [facility] 10*6/L SERVICES HGB 10.8 (L) 11.6 - 15.[address] [facility] g/dL SERVICES HCT 33.5 (L) 35.7 - 45.2 % [facility] MCV 98.0 (H) 80.6 - 95.[address] [facility] MCH 31.6 25.9 - 32.[address] [facility] SERVICES MCHC 32.2 31.6 - 35.1 [facility] g/dL SERVICES RDW-SD 47.8 39.0 - 49.9 fL [facility] RDW-CV 13.4 12.0 - 15.5 % [facility] PLT 150 (L) 166 - [address] [facility] 10*3/L SERVICES MPV 12.9 9.5 - 12.[address] [facility] NRBC/100 WBC 0.0 0.0 - 10.0 /[address] [facility] WBCs SERVICES NRBC x10^3 <0.01 10*3/L [facility] GRAN MAT (NEUT) % 74.8 % [facility] IMM GRAN % 0.60 % [facility] LYMPH % 15.0 % [facility] MONO % 7.7 % [facility] EOS % 1.5 % [facility] BASO % 0.4 % [facility] SERVICES GRAN MAT x10^3(ANC) 6.40 1.88 - 7.[address] [facility] 10*3/uL SERVICES IMM GRAN x10^3 0.05 0.00 - 0.[address] [facility] 10*3/uL SERVICES LYMPH x10^3 1.28 (L) 1.32 - 3.[address] [facility] 10*3/uL SERVICES MONO x10^3 0.66 0.33 - [address] [facility] 10*3/uL SERVICES EOS x10^3 0.13 0.03 - 0.[address] [facility] 10*3/uL SERVICES BASO x10^3 0.03 0.01 - 0.[address] [facility] 10*3/uL SERVICES Specimen Blood - VENOUS Performing Organization Address City/State/Zipcode Phone Number [facility] CLIA: [id number], [address] [place] [phone] [facility] HIV 1/2 AG-AB WITH REFLEX (12/18/2019 9:54 AM CDT) Pathologist Sig nature HIV 1/2 Ag-Ab with Negative Negative [facility] Reflex SERVICES HIV Semi-quantitative 0.[address] [facility] Specimen Blood - VENOUS Narrative Performed At Non-reactive for HIV-1 antigen and HIV-1/HIV-[address] [facility] No laboratory evidence of HIV infection. Repeat in 2-4 weeks if acute HIV infection is suspected. Performing Organization Address City/State/Zipcode Phone Number [facility] CLIA: [id number], [address] [place] [address] [facility] Type and Screen - ONCE OPHELIA (12/18/2019 9:54 AM CDT) Pathologist Sig nature ABO & RH O POSITIVE LAB Comment: Performed at [facility] Laboratory Services - [facility] Blood [place] [address] Toll Free: [phone] CLIA No. [id number] IAT Negative LAB Comment: Performed at [facility] Laboratory Services - [facility] [facility] [place] [address] Toll Free: [phone] CLIA No. [id number] Specimen Blood - VENOUS Performing Organization Address City/[facility]/Zipcode Phone Number [facility] GALV ONLY - SYPHILIS IGG/IGM (12/18/2019 9:54 AM CDT) Pathologist Sig nature Syphilis IgG/IgM Non-reactive Non-reactive [facility] Specimen Blood - VENOUS Narrative Performed At [facility] Non-reactive - No serologic evidence of T. pallidum infection. Cannot exclude incubating or early syphilis . Submit a second specimen in 2-4 weeks if syphilis is clinically suspected. Equivocal - Further testing to follow. Reactive - Further testing to follow. Performing Organization Address City/[facility] Phone Number [facility] CLIA: [id number], [address] [place] [phone] [facility] Hepatitis B Surface Antigen (12/18/2019 9:54 AM CDT) Pathologist Sig [facility] HBsAg Negative Negative [facility] HBsAg [address] [facility] Semi-Quantitative SERVICES Specimen Blood - VENOUS Performing Organization Address City/[facility] Phone Number [facility] CLIA: [id number], [address] [place] [phone] [facility] POCT GLUCOSE (AUTOMATED) (12/18/2019 7:07 AM CDT) Pathologist [facility] POCT GLU 71 70 - 110 mg/dL [facility] Specimen Blood Performing Organization Address City/[facility] Phone Number [facility] CLIA: [id number], [address] [place] [address] 7755 [facility] COVID-19 (ID NOW RAPID TESTING) (12/18/2019 5:42 AM CDT) SARS-CoV-2 Rapid ID Not Detected Not Detected [facility] NOW SERVICES Specimen Swab - NASOPHARYNGEAL SWAB Narrative Performed At ID NOW COVID-19 Assay is an isothermal nucleic acid [facility] amplification test intended for the qualitative detect ion of nucleic acid from SARS-CoV-2 viral RNA in nasopharynge al (SEARCH SPECIALIST) specimens. It is used under Emergency Use Authori zation (EUA) by FDA. The limit of detection (LOD) of the assa y is 125 Genome Equivalents/mL. A positive result is indicative of the presence of SARS-CoV-2 RNA. Clinical correlation with patient hi story and other diagnostic information is necessary to deter mine patient infection status. A negative (Not Detected) result does not preclude SARS-CoV-2 infection. In patients with clinical sympto ms and other tests that are consistent with SARS-CoV-2 infect ion, negative results should be treated as presumptive nega tive and a new specimen should be tested with alternative P CR molecular test. Invalid: Please collect a new specimen for repeat isa ent testing if clinically indicated. Performing Organization Address City/State/Zipcode Phone Number [facility] CLIA: [id number], [address] [facility] documented in this encounter Visit Diagnoses Diagnosis S/P - Primary Other postprocedural status Gestational diabetes mellitus (GDM) in t hird trimester controlled on oral hypoglycemic drug 39 weeks gestation of state, incidental Obesity (BMI 30-39.9) Obesity, unspecified Previous section Other postprocedural status High-risk in third trimester documented in this encounter Administered Medications Medication Order MAR Action Action Date Dose Rate Site docusate calcium (SURFAK) capsule Given 12/20/2019 3:36 AM CDT 240 mg 240 mg 240 mg, Oral, QDAILYPRN, Starting Carley 12/18/19 at 1702, Until Discontinued, Routine, Constipation Given 12/19/2019 9:17 AM CDT 240 mg HYDROcodone-acetaminophen (NORCO 5) 5-325 Given 2019 3:36 AM CDT 2 tablets mg tablet 2 tablet 2 tablet, Oral, Q6HPRN, Starting Carley 12/18/19 at 1702, Until Discontinued, Routine, Pain (scale 7-10), If uncontrolled by Ibuprofen Given 12/19/2019 4:46 PM CDT 2 tablets Given 12/19/2019 6:10 AM CDT 2 tablets ibuprofen (IBU) tablet 600 mg Given 12/20/2019 3:35 AM CDT 600 mg 600 mg, Oral, Q6HPRN, Starting Carley 12/18/19 at 1702, Until Discontinued, Routine, Pain (scale 1-3) Given 12/19/2019 8:00 PM CDT 600 mg Given 12/19/2019 6:10 AM CDT 600 mg magnesium hydroxide (MILK OF MAGNESIA) 400 Given 12/20/2019 9:0 8 AM CDT 30 mL mg/5 mL suspension 30 mL 30 mL, Oral, QDAILYPRN, Starting Carley 12/18/19 at 1702, Until Discontinued, Routine, Constipation Given 12/19/2019 9:17 AM CDT 30 mL simethicone (GAS RELIEF (SIMETHICONE)) Given 12/20/2019 9:07 AM CDT 160 mg chewable tablet 160 mg 160 mg, Oral, PC+HSPRN, Starting Carley 12/18/19 at 1702, Until Discontinued, Routine, Gas Given 12/20/2019 3:36 AM CDT 160 mg Given 12/19/2019 8:00 PM CDT 160 mg Medication Order MAR Action Action Date Dose Rate Site ceFAZolin in dextrose (iso-os) Given 12/18/2019 12:01 PM CDT 2 g (ANCEF) 2 gram/100 mL Piggyback 2 g 2 g (2,000 mg), IV Piggyback, O.R. HOLDING ONCE, 1 dose, Starting Carley 12/18/19 at 0934, Until Carley 12/18/19 at 1201, 100 mL, Reason for Anti-Infective: Surgical Prophylaxis, Surgical Prophylaxis: PATTERNMAKER PLASTER, Duration of therapy: within 24 hours of surgery Investigational Drug- tranexamic acid 1 gram or Given 12/18/2019 12:45 PM CDT 1 g placebo in NS 50 mL 1 g, IV Infusion, ONCE, 1 dose, Carley 12/18/19 at 1145, title investigator: COLTON WANG ketorolac (TORADOL) injection 30 mg Given 12/18/2019 3:59 PM CDT 30 mg 30 mg, Slow IV Push, PRN, 1 dose, Starting Carley 12/18/19 at 1237, Until Carley 12/18/19 at 1559, Routine, Pain (scale 7-10), membership assistant approving Restricted medication: GILBERTO JUNG lactated ringers IV infusion New Bag 12/18/2019 10:28 AM CDT 1,000 mL 125 mL/hr 1,000 mL at 125 mL/hr, 1,000 mL, IV Infusion, CONTINUOUS, Starting Carley 12/18/19 at 0945, Until Carley 12/18/19 at 1702, Routine lactated ringers IV infusion New Bag 12/18/2019 11:41 PM CDT 1,000 mL 125 mL/hr 1,000 mL at 125 mL/hr, 1,000 mL, IV Infusion, ONCE, 1 dose, Carley 12/18/19 at 1715, Routine LR 1000 mL + oxytocin 20 New Bag 12/18/2019 3:59 PM CDT 2 mil li-units/min 6 mL/hr units IV Solution at 6 mL/hr, IV Infusion, CONTINUOUS, Starting Carley 12/18/19 at 1400, Until Carley 12/18/19 at 1702, OPHELIA LR 1000 mL + oxytocin 20 units IV Given 12/18/2019 5:15 PM CDT 125 mL/hr Solution at 125 mL/hr, IV Infusion, ONCE, 1 dose, Carley 12/18/19 at 1715, OPHELIA sodium citrate-citric acid (BICITRA) 500-334 Given 12:01 PM CDT 30 mL mg/5 mL solution 30 mL 30 mL, Oral, PRE-PROCEDURE ONCE, 1 dose, Starting Carley 12/18/19 at 0934, Until Carley 12/18/19 at 1201, Routine, Surgery/Procedure documented in this encounter Insurance Payer Benefit Plan / Subscriber ID Effective Phone Address T ype Group Dates [facility] [id number] 2018-Kirk [phone] PPO/POS - OUT OF STATE nt [id number] [place] [address] [facility] xxxxxxxxx 2019-[place]irk [place] [facility] MANAGED MEDICAID documented as of this encounter
--- OUTSIDE RECORDS SUMMARY | 2020-01-08 20:16 | XMS REPORT | Summary of Care ---
:1985 Author Organization [facility] - [facility] Address [address] [place] [address] Care Team Providers Name Role Phone Pcp, Patient Does Not Have A Primary Care Provider +[id number] 0-0000 Reason for Visit Reason Comments Wound Check c/s 12/17 Encounter Details Date Type Department Care Team Description 12/26/2019 Nurse Visit [facility] Women's Chari Alva MD [address] [place] [address] [id number] [place], [place] [id number] Encounter for Healthcare- [place] Alic[place] Liz PA-C [address] [place] [address] [address] [place] [address] postoperative wound 146 [facility] Nurse, Gordon Women's Health check (Primary Dx) Drive, [address] [place] [address] Allergies No Known Allergiesdocumented as of this encounter (statuses as of 12/26/2019) Medications Medication Sig Dispensed Refills Start Date End Date Status vitamin Take 1 tablet by 100 tablet 3 12/19/2019 Active w/FA mouth daily. tabletIndications : S/P docusate calcium Take 1 capsule by 60 capsule 1 12/19/2019 Active 240 mg mouth once daily as capsuleIndication needed for s: S/P Constipation. ferrous sulfate Take 1 tablet by 90 tablet 3 12/19/2019 Active 325 mg (65 mg mouth 3 (three) iron) times daily with tabletIndications meals. : S/P ibuprofen 600 mg Take 1 tablet by 60 tablet 1 12/19/2019 Active tabletIndications mouth every 6 (six) : S/P hours as needed (Pain). Take with food or milk. foLIC acid 1 mg Take 1 tablet by 30 tablet 3 12/19/2019 Active tabletIndications mouth daily. : S/P ascorbic acid, Take 1 tablet by 30 tablet 3 12/19/2019 Active vitamin C, 500 mg mouth daily. tabletIndications : S/P HYDROcodone-aceta Take 1 tablet by 10 tablet 0 12/19/2019 07/0 08/2019 Active minophen 5-325 mg mouth every 6 (six) tabletIndications hours as needed : S/P (Pain scale above 4) for up to 7 days. Do not exceed 3 grams of acetaminophen in 24 hours. documented as of this encounter (statuses as of 12/26/2019) Active Problems Problem Noted Date High-risk in third trimester 11/14/2019 Obesity (BMI 30-39.9) 09/05/2019 Polyp of gallbladder 06/06/2016 Seropositive for herpes simplex 2 infection 05/31/2016 Low serum HDL 05/31/2016 Anemia, unspecified 05/31/2016 Chronic abdominal pain 05/22/2016 Blood in stool 05/22/2016 documented as of this encounter (statuses as of 12/26/2019) Resolved Problems Problem Noted Date Resolved Date 39 weeks gestation of 10/31/2019 12/26/19 20 Gestational diabetes mellitus (GDM) in third trimester 10/1612/26/2019 controlled on oral hypoglycemic drug Previous section 10/01/2019 12/26/2019 30 weeks gestation of 10/01/2019 12/16/19 20 Anemia of mother in , antepartum 08/22/2019 12/26/2019 24 weeks gestation of 08/22/2019 10/01/19 20 documented as of this encounter (statuses as of 12/26/2019) Immunizations Name Administration Dates Next Due Influenza [...] Sign Reading Time Taken Comments Blood Pressure 121/76 12/26/2019 4:06 PM CDT Pulse 74 12/26/2019 4:06 PM CDT Temperature 36.8 C (98.3 F) 12/26/2019 4:06 PM CDT Respiratory Rate 18 12/26/2019 4:06 PM CDT Oxygen Saturation - - Inhaled Oxygen Concentration - - Weight 79.7 kg (175 lb 9.6 oz) 12/26/2019 4:06 PM CDT Height 157.5 cm (5' 2") 12/26/2019 4:06 PM CDT Body Mass Index 32.12 12/26/2019 4:06 PM CDT documented in this encounter Patient Instructions Patient InstructionsDara Mcneal RN - 12/26/2019 3:30 PM CDT Patient Education Cuidado de la incisin Recuerde: Las visitas de control permiten a pruett proveedor de atencin mdica asegurarse de que la incisin est cicatrizando rosita. Asista a las visitas de control. Tenga en cuenta que hay muchos tipos de vendas, cintas y suministros. Asegrese de seguir las instrucciones que le d el equipo de atencin mdica. Pida los nmeros de telfono para llamar en zonia de necesitar ayuda. Nmero de telfono del proveedor de atencin mdica: Cuidados en el hogar Los siguientes son algunos consejos para el cuidado de la incisin en el hogar: Lvese siempre las thang con jabn y squelas antes de tocar la incisin. Mantenga la incisin limpia y seca. No coloque lociones o ungentos en la incisin, a menos que se lo indique el equipo de atencin mdica. No brianna actividades que puedan introducir suciedad o sudor en la incisin. No quite las costras de la incisin, ya que ayudan a proteger la herida. Mantenga la incisin seca, lejos del contacto con el agua. [place] baos de esponja para evitar que la incisin se moje. Consulte con pruett proveedor cundo puede ducharse o baarse. Tambin pregntele cul es la mejor manera de mantener seca la incisin mientras se ducha o se baa. Seque los puntos de sutura con toques suaves si se moja. No restriegue. Djese puesto el apsito (venda) hasta que le indiquen que debe quitrselo o cambiarlo. Cmbieselo solo de la forma indicada y con las thang limpias. Luego de las primeras 12 horas, cambie el apsito cada 24 horas o segn le indique pruett proveedorde atencin mdica. Cambie el apsito si se moja o ensucia. Cuidado de los distintos tipos de cierres Siga las siguientes recomendaciones: Puntos de sutura o grapas. Cuando ya no necesite que se mantengan secos, limpie la herida todos los rizvi. Ada, quite el apsito con las thang limpias. Luego, lave la sharonda suavemente con agua corriente limpia y jabn. Por ltimo, coloque un psito nuevo. Pegamento para la piel. No coloque lquidos, pomadas ni cremas sobre la herida mientras tenga elpegamento.No brianna actividades que provoquen yancy sudoracin. Proteja la herida artis solar. No rasque, frote ni toque la sharonda con pegamento quirrgico. No coloque cinta directamente sobre el pe gamento.El pegamento quirrgico debe caerse por s solo en 5 a 10das. Cinta quirrgica. Mantenga la sharonda seca. Si se moja, squela con anthony toalla limpia. Generalmente, la cinta quirrgica se en 7 a 10das. Si no se despus de bere rizvi, comunquese con pruett proveedor de atencin mdica antes de quitrsela usted mismo. Si le indican que la quite, coloque aceite mineral o vaselina en un trozo de algodn y frote suavemente la cinta hasta que se despre nda. Electrical Engineering Technician cambiar el apsito Djese puesto el apsito hasta que le indiquen quitrselo o cambiarlo. Siga las instrucciones queencontrar a continuacin, a menos que pruett proveedor de atencin mdica le d otras indicaciones. Lvese siempre las thang antes de cambiarse el apsito. Generalmente, la incisin se fortunato luego de las primeras 48horas. En susana zonia, quite el apsito y deje la incisin descubierta.Si la incisin no se cerr, mantngala cubierta. Cubra la incisin nicamente si la ropa roza la incisin o irrita la sharonda o si an supura. Cambie el apsito si se moja o ensucia. Visitas de control Asista a las visitas de control con el proveedor de atencin mdica para consultarle gus cunto tiempo deben permanecer los puntos de sutura o las grapas. Asegrese de regresar para que se los quiten segn le hayan indicado. Si le ponen suturas que se disuelven en zonas bradley la boca, no sernecesario quitarlas. Deberan caerse o disolverse por s solas. Si el cierre se hizo con cinta, qutela usted mismo cuando se lo indique pruett proveedor de atencin mdica, si an no se rick. Si se utiliz pegamento para la piel, ir desapareciendo. Cundo llamar a pruett proveedor de atencin mdica Llame a pruett proveedor de atencin mdicasi tiene alguno de los siguientes sntomas: Dolor, enrojecimiento, inflamacin o hemorragia que empeoran Lquido maloliente en la incisin o cambios en el color del lquido que supura de la incisin Fiebre 100.4F ( 38C) o ms, o segn le hayan indicado Escalofros o temblores Vmitos o nuseas persistentes Entumecimiento, fro u hormigueo alrededor de la sharonda de la incisin Cambios en el color de la piel alrededor de la incisin Abertura de la herida Puntos de sutura que se abren Grapas que se desprenden Cinta quirrgica que se desprende antes de los 7das [id number] [employer]. [address] [place] [address]. Todos los derechos reservados. Esta informacin no pretende sustituir la atencin mdica profesional. Slo pruett mdico puede diagnosticar y tratar un problema de huber. documented in this encounter Progress Notes Dara Mcneal RN - 12/26/2019 3:30 PM CDTIncision CDI, edges well- approximated, steri-strips intact, no s/s of infection noted. RN educated pa tient on incision care and when to call clinic for concerns. Patient stated she has taken nothing for pain since last night. RN educated patient about pain medication regimen and advised patient to take 600mg of ibuprofen and 500mg of Tylenol every 6 hours. Patient verbalized understanding and agrees to plan of care. Dara Mcneal RN 12/26/2019 4:18 PM documented in this encounter Plan of Treatment Date Type Specialty Care Team Description 01/14/2020 Routine Obstetrics & Adum, Tawanna Fitch MD Visit Gynecology [address] [place] [address] [place] [address] Health Maintenance Due Date Last Done Comments VARICELLA VACCINES (1 of 2 - 01/02/1988 2-dose childhood series) Depression Screening 1999 INFLUENZA VACCINE (#1) 2020 05/22/2016 PAP SMEAR 08/22/2022 08/22/2019, 05/22/2016 DTaP,Tdap,and Td Vaccines (2 09/30/2029 10/01/2019 - Td) PNEUMOCOCCAL 0-64 YEARS Aged Out No longe r eligible based COMBINED SERIES on patient's age to complete this to [facility] documented as of this encounter Results Not on filedocumented in this encounter Visit Diagnoses Diagnosis Encounter for postoperative wound check - Primary Other specified aftercare following surg bartolo documented in this encounter Insurance Payer Benefit Plan / Subscriber ID Effective Phone Address T ype Group Dates [facility] [id number] 2018-Prese [phone] PPO/POS - OUT OF STATE nt [id number] [place] [address] [facility] xxxxxxxxx 2019-Prese [address] Medic aid HEALTH CHOICE HEALTH CHOICE nt [id number] - MANAGED MEDICAID [place], [place] [id number] documented as of this encounter
--- NOTE | 2020-01-08 21:18 | ER ---
Nurse's Notes [facility] Name: Marina Conklin Age: 35 yrs Sex: Female : 1985 Arrival Date: 01/08/2020 Time: 20:07 Bed 24 Private MD: Diagnosis: Local infection of the skin and subcutaneous tissue, unspecified Presentation: 01/07 20:25 Chief complaint: Patient states: C section 3 weeks ago. Fever and headache yesterday. ca1 "The incision is a little bit open, with a little bit of pus and blood drainage, and incision is tender to touch". Coronavirus screen: Patient denies a cough. Patient denies shortness of breath or difficulty breathing. Patient reports a measured and/or subjective temperature greater than 100.4F. Patient denies travel on a cruise ship or to a country the [facility] currently lists as an affected area. Patient denies contact with known and/or suspected case of COVID-19. Proceed with normal triage. Ebola Screen: Patient negative for fever greater than or equal to 101.5 degrees Fahrenheit, and additional compatible Ebola Virus Disease symptoms Patient denies exposure to infectious person. Patient denies travel to an Ebola-affected area in the 21 days before illness onset. No symptoms or risks identified at this time. Initial Sepsis Screen: Does the patient meet any 2 criteria? No. Patient's initial sepsis screen is negative. Does the patient have a suspected source of infection? No. Patient's initial sepsis screen is negative. Risk Assessment: Do you want to hurt yourself or someone else? Patient reports no desire to harm self or others. Onset of symptoms. 20:25 Method Of Arrival: Ambulatory ca1 20:25 Acuity: CAROLINE 3 ca1 20:30 Note Case Management Director # [id number]. ca1 Triage Assessment: 20:52 General: Appears uncomfortable. Pain: Complains of pain in pelvis and WAYNE Pain currently ks7 is 7 out of 10 on a pain scale. Quality of pain is described as aching, Pain began 2-3 days ago. STATE ARCHIVIST: 20:29 LMP N/A - Recent ca1 Historical: - Allergies: 20:29 No Known Allergies; ca1 - Home Meds: 20:29 None [Active]; ca1 - PMHx: 20:30 gestational diabetes; ca1 - PSHx: 20:29 ; ca1 - Immunization history:: Adult Immunizations up to date. - Social history:: Smoking status: Patient denies any tobacco usage or history of. Screenin:01 Abuse screen: Denies threats or abuse. Nutritional screening: No deficits noted. ks7 Tuberculosis screening: No symptoms or risk factors identified. Fall Risk None identified. Assessment: 21:01 General: Appears uncomfortable. Derm: Skin is intact, Skin is pink, warm \\T\\ dry. Skin ks7 temperature is warm Wound noted pelvis Reports pain to incision site for 2 days, reports sanguinous drainage this morning. pain on palpation. no drainage noted from incision. pt also c/o WAYNE and fever 100.3 today. 21:30 Reassessment: Patient is alert, oriented x 3, equal unlabored respirations, skin ks7 warm/dry/pink. Vital Signs: 20:25 BP 115 / 78; Pulse 96; Resp 15 S; Temp 98.2(TE); Pulse Ox 98% on R/A; Weight 74.84 kg ca1 (R); Height 5 ft. 3 in. (160.02 cm) (R); 20:52 BP 116 / 74; Pulse 86; Resp 18; Pulse Ox 99% on R/A; Pain 7/10; ks7 21:34 BP 114 / 72; Pulse 79; Resp 16; Temp 99.2(O); Pulse Ox 99% on R/A; Pain 5/10; ks7 20:25 Body Mass Index 29.23 (74.84 kg, 160.02 cm) ca1 ED Course: 20:07 Patient arrived in ED. ag3 20:28 Triage completed. ca1 20:29 Arm band placed on right wrist. ca1 20:44 Kayleen Dolan, COR[place] is Primary Nurse. ks7 21:01 Severiano Pineda PA is PHCP. jr8 21:01 Johann Carrizales MD is Attending Physician. jr8 21:01 Patient has correct armband on for positive identification. Placed in gown. Bed in low ks7 position. Call light in reach. Side rails up X2. 21:01 No provider procedures requiring assistance completed. ks7 21:06 Nurse Practitioner and/or Physician Gerentological Physiotherapist to see patient. at bedside assessing pt. ks7 21:34 Patient did not have IV access during this emergency room visit. ks7 Administered Medications: No medications were administered Outcome: 21:17 Discharge ordered by . adán 21:34 Discharged to home ambulatory, with family. ks7 21:34 Condition: good 21:34 Discharge instructions given to patient, Instructed on discharge instructions, medication usage, Demonstrated understanding of instructions, medications, Prescriptions given X 1. 21:39 Patient left the ED. ks7 Signatures: Severiano Pineda PA PA jr8 Elizabeth Sheffield ag3 Annie Caban RN RN ca1 Kayleen Dolan RN RN ks7 Corrections: (The following items were deleted from the chart) 20:30 20:29 PMHx: None; ca1 ca1 21:05 21:01 Derm: Skin is intact, Skin is pink, red, Skin temperature is warm Wound noted ks7 pelvis Reports pain to incision site for 2 days, reports sanguinous drainage this morning. pain on palpation. no drainage noted from incision. pt also c/o WAYNE ks7 21:06 21:01 Derm: Skin is intact, Skin is pink, red, Skin temperature is warm Wound noted ks7 pelvis Reports pain to incision site for 2 days, reports sanguinous drainage this morning. pain on palpation. no drainage noted from incision. pt also c/o WAYNE and fever 100.3 today ks7
--- NOTE | 2020-01-08 21:18 | EDPHYS ---
Physician Documentation [facility] Name: Marina Conklin Age: 35 yrs Sex: Female : 1985 Arrival Date: 01/08/2020 Time: 20:07 Bed 24 Private MD: LOTUS Physician Johann Carrizales HPI: 01/07 21:12 This 35 yrs old Female presents to ER via Ambulatory with complaints of jr8 CESEREAN PROBLEM. 21:12 Onset: The symptoms/episode began/occurred acutely, yesterday. Associated signs and jr8 symptoms: Pertinent positives: fever. Modifying factors: The patient symptoms are alleviated by nothing, the patient symptoms are aggravated by nothing. The patient has not experienced similar symptoms in the past. The patient has not recently seen a physician. Patient stated that she had section about 3 weeks ago. Stated that she had some purulent discharge and blood from incision site last night along with having headache and fever. Denies any other symptoms. 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 - Social history:: Smoking status: Patient denies any tobacco usage or history of. ROS: 21:12 Eyes: Negative for injury, pain, redness, and discharge, ENT: Negative for injury, jr8 pain, and discharge, Neck: Negative for injury, pain, and swelling, Cardiovascular: Negative for chest pain, palpitations, and edema, Respiratory: Negative for shortness of breath, cough, wheezing, and pleuritic chest pain, Abdomen/GI: Negative for abdominal pain, nausea, vomiting, diarrhea, and constipation, Back: Negative for injury and pain, MS/Extremity: Negative for injury and deformity, Neuro: Negative for headache, weakness, numbness, tingling, and seizure. 21:12 Skin: Negative for injury, rash, and discoloration. Exam: 21:12 Cardiovascular: Regular rate and rhythm with a normal S1 and S2. No gallops, murmurs, jr8 or rubs. Normal PMI, no JVD. No pulse deficits. Respiratory: Lungs have equal breath sounds bilaterally, clear to auscultation and percussion. No rales, rhonchi or wheezes noted. No increased work of breathing, no retractions or nasal flaring. Abdomen/GI: Soft, non-tender, with normal bowel sounds. No distension or tympany. No guarding or rebound. No evidence of tenderness throughout. Back: No spinal tenderness. No costovertebral tenderness. Full range of motion. MS/ Extremity: Pulses equal, no cyanosis. Neurovascular intact. Full, normal range of motion. Neuro: Awake and alert, GCS 15, oriented to person, place, time, and situation. Cranial nerves II-XII grossly intact. Motor strength 5/5 in all extremities. Sensory grossly intact. Cerebellar exam normal. Normal gait. 21:12 Skin: section scar intact and without erythema. Small approximately 1 mm hole along scar noted but without drainage at this time. Mild tenderness to palpation. No other acute findings noted . Vital Signs: 20:25 BP 115 / 78; Pulse 96; Resp 15 S; Temp 98.2(TE); Pulse Ox 98% on R/A; Weight 74.84 kg ca1 (R); Height 5 ft. 3 in. (160.02 cm) (R); 20:52 BP 116 / 74; Pulse 86; Resp 18; Pulse Ox 99% on R/A; Pain 7/10; ks7 21:34 BP 114 / 72; Pulse 79; Resp 16; Temp 99.2(O); Pulse Ox 99% on R/A; Pain 5/10; ks7 20:25 Body Mass Index 29.23 (74.84 kg, 160.02 cm) ca1 MDM: 21:02 Patient medically screened. jr8 21:12 Data reviewed: vital signs, nurses notes, and as a result, I will discharge patient. jr8 Data interpreted: Pulse oximetry: on room air is 99 %. Interpretation: normal. Counseling: I had a detailed discussion with the patient and/or guardian regarding: the historical points, exam findings, and any diagnostic results supporting the discharge/admit diagnosis, the need for outpatient follow up, an OB/Gyne specialist, to return to the emergency department if symptoms worsen or persist or if there are any questions or concerns that arise at home. ED course: Will put on Abx to make sure abscess does not form. No other acute findings on exam. Denies urinary symptoms. Still spotting but without worsening of bleeding or pain. Told to f/u with OB. If worse to come back. Patient good with this plan . Administered Medications: No medications were administered Disposition: 01/08 06:12 Co-signature as Attending Physician, Johann Carrizales MD I agree with the assessment and [facility] plan of care. Disposition: 01/08/20 21:17 Discharged to Home. Impression: Local infection of the skin and subcutaneous tissue, unspecified. - Condition is Stable. - Discharge Instructions: Skin Abscess, Cellulitis, Adult. - Prescriptions for Keflex 500 mg Oral Capsule - take 1 capsule by ORAL route every 6 hours for 7 days; 28 capsule. - Medication Reconciliation Form, Thank You Letter, Antibiotic Education, Prescription Opioid Use form. - Follow up: Private Physician; When: 2 - 3 days; Reason: Wound Recheck, Recheck today's complaints, Continuance of care, Re-evaluation by your physician. - Problem is new. - Symptoms have improved. Signatures: Johann Carrizales MD MD cha Roszak, Josh, PA PA jr8 Annie Caban RN RN ca1 Kayleen Dolan RN RN ks7 Corrections: (The following items were deleted from the chart) 01/07 20:30 20:29 PMHx: None; ca1 ca1 21:39 21:17 01/08/2020 21:17 Discharged to Home. Impression: Local infection of the skin and ks7 subcutaneous tissue, unspecified. Condition is Stable. Forms are Medication Reconciliation Form, Thank You Letter, Antibiotic Education, Prescription Opioid Use. Follow up: Private Physician; When: 2 - 3 days; Reason: Wound Recheck, Recheck today's complaints, Continuance of care, Re-evaluation by your physician. Problem is new. Symptoms have improved. jr8
[2020-01-08 22:35] VITALS: O2SAT 99
[2020-01-08 22:36] VITALS: BP 114/72; TEMP 99.2
== END 2020-01-08 21:39 | disposition home or self-care (01) ==
LOC: ER 20:06
DX: L08.9 Local infection of the skin and subcutaneous tissue, unspecified (principal)
CPT/HCPCS: 99282